=== PATIENT | male | born 1940 | race Caucasian/White ===

== ENCOUNTER → 2017-12-09 13:58 | Outpatient (CLI) | payer MEDICARE, SELFPAY ==
[2017-12-09 16:23] LABS: Absolute Lymphocyte Count 2.41 X10^3/ul (0.83-4.51); Absolute Neutrophil Count 4.7 X10^3/uL (2.0-7.7); Basophil# 0.02 X10^3/uL; Basophil% 0.2 % (0-1); Eosinophil# 0.11 X10^3/uL; Eosinophils% 1.3 % (0-5); Hematocrit 40.5 % (40-54); Hemoglobin 13.1 g/dl (13.0-16.5); Lymphocyte # 2.41 X10^3/ul (4.0); Lymphocyte % 29.2 % (19-41); Mean Corp Hgb Conc 32.3 g/gl (32-36); Mean Corpuscular Hgb 28.4 pg (27.0-32.0); Mean Corpuscular Volume 87.9 fL (80-94); Mean Platelet Vol. 10.5 fl (6.2-12.0); Monocyte# 1.01 X10^3/uL; Monocyte% 12.2 % (0-10); Neutrophil # 4.69 X10^3/uL (2.7-7.7); Neutrophil % 56.9 % (47-70); Platelet Count 220 K/mm3 (150-450); RBC Distribution Width CV 13.8 % (11.6-14.6); RBC Distribution Width SD 44.3 fl (35.1-43.9); Red Blood Count 4.61 M/mm3 (4.6-6.2); White Blood Count 8.3 K/mm3 (4.4-11.0)
[2017-12-09 16:34] LABS: POSITIVE COUNT NO; POSITIVE DIFFERENTIAL NO; POSITIVE MORPHOLOGY NO
[2017-12-09 16:36] LABS: ALB/GLOB Ratio 1.2 RATIO (0.9-2.4); AST(SGOT) 16 U/L (15-37); Alanine Aminotransfer ALT/SGPT 23 U/L (16-61); Albumin, Serum 3.6 g/dL (3.2-5.0); Alkaline Phosphatase 68 U/L (45-117); Anion Gap 11 (5-15); BUN 18 mg/dL (7-18); BUN/Creat Ratio 19.8 RATIO (10-20); Calcium,Total 8.7 mg/dL (8.5-10.1); Chloride 106 mmol/L (98-107); Creatinine, Serum 0.91 mg/dL (0.70-1.30); EST Glomerular Filtration Rate 86 mL/min (>60); Est Glom Filt Rate - Afr Amer 104 mL/min (>60); Globulin 3.1 g/dL (2.2-4.2); Glucose 95 mg/dL (74-106); Potassium 4.5 mmol/L (3.5-5.1); Protein, Total 6.7 g/dL (6.4-8.2); Sodium Level 143 mmol/L (136-145); Thyroid Stim Hormone (TSH) 1.98 uIU/mL (0.358-3.74)
[2017-12-10 12:25] LABS: Vitamin D,25 Hydroxy 21.6 ng/mL (29.95-100.01)
== END ==
PROVIDERS: Visit Provider Family Medicine Geriatric Medicine
DX: E11.9 Type 2 diabetes mellitus without complications (principal); E55.9 Vitamin D deficiency, unspecified; I10 Essential (primary) hypertension
CPT/HCPCS: 36415; 80053; 82306; 84443; 85025

== ENCOUNTER 2018-02-28 07:35 | Day surgery (SDC) | payer MEDICARE, SELFPAY ==
[2018-02-22 15:15] VITALS: BP 154/89; PULSE 77; RESP 18; TEMP 36.6; O2SAT 95; BMI 33.8
[2018-02-22 16:28] LABS: Hemoglobin A1c 6.5 % (4.2-6.3)
--- NOTE | 2018-02-28 | FIST_PTH ---
PATIENT: SABINE ORNELAS LOC: [facility] [place] U#:[id number] AGE/SX: 77/M ROOM: RE02/28/[address]: Dr. Eliud Zeng MD : [id number] BED: DIS: 02/28/2018 SPEC #: [id number] RECD: 02/28/18 13:20 STATUS: LETICIA STEFANI #: [id number] JUSTA: 02/28/18 00:[address]: Eliud Zeng DEPT: SURGICAL PATHOLOGY RECD BY: Tin Solano ENTERED: 02/28/18 13:22 SP TYPE: Fistula OTHR DR: Ash Barclay MD Tissues: Trachea, NOS Procedures: Surgery Specimen Level IV HEADER OPERATION: Revision, tracheoesophageal fistula, rigid esophagoscopy PRE-OP DIAGNOSIS: Tracheoesophageal fistula, personal history of malignant neoplasm of larynx TISSUE SUBMITTED: Tracheal tissue MICROSCOPIC DIAGNOSIS Tracheal tissue: Fragments of squamous mucosa with mild chronic inflammation, clinically tracheoesophageal fistula. Negative for malignancy. DEVORA:ale 03/01/18 COMMENT Clinical correlation and appropriate follow up are necessary. MICROSCOPIC DESCRIPTION Slides are reviewed. GROSS DESCRIPTION Received in fixative is one container labeled with the patient's name and designated tracheal tissue. The specimen consists of multiple irregular fragments of diaz soft tissue that in aggregate measure 2.5 x 0.5 x 0.3 cm. The specimen is totally submitted in one cassette. / DEVORA:ale 02/28/18 TC:3 CPT: 77211
[2018-02-28 08:10] VITALS: BP 182/73; PULSE 70; RESP 16; TEMP 36.1; O2SAT 99; BMI 33.8
[2018-02-28 08:35] LABS: Bedside Glucose 134 mg/dL (70-110)
--- NOTE | 2018-02-28 09:34 | PCM.DC ---
You will use the following diet at home:: No restrictions, Regular Discharge Activity: Return to Normal Activity Additional Activity Instructions:: Do not remove red rubber catheter. Allergies/Adverse Reactions: Allergies No Known Allergies Allergy (Verified 02/22/18 14:44) Medications to take at Discharge Levothyroxine Sodium [Levo-T] 112 mcg PO DAILY 03/11/16 Lisinopril [Zestril] 30 mg PO DAILY 03/11/16 Metformin HCl [Glucophage] 1,000 mg PO DAILY 03/11/16 Aspirin [Aspirin, Baby] 81 mg PO DAILY@0800 02/22/18 Atorvastatin Calcium [Lipitor] 80 mg PO QHS 02/22/18 Tamsulosin HCl [Flomax] 0.4 mg PO DAILY 02/22/18 Zolpidem Tartrate [Ambien] 10 mg PO QHS 02/22/18 Primary Care Physician: Ash Barclay Chi, MD [Primary Care Provider] - Test Results: Test results from this visit will be discussed in further detail at your follow-up appointment, if applicable.
[2018-02-28] MEDS: Silver Nitrate (BKC) 1 EACH (10:04)
[2018-02-28 10:38] VITALS: BP 140/52; BP 160/80; PULSE 90; RESP 18; TEMP 36.6; O2SAT 93
[2018-02-28 10:45] VITALS: BP 151/58; BP 160/80; PULSE 90; RESP 18; O2SAT 92
--- NOTE | 2018-02-28 10:46 | PCM.OPRPT ---
Report of Operation Date of Procedure: 02/28/18 Pre-Operative Diagnosis: aphonia, tracheoesophageal fistula Post-Operative Diagnosis: same Surgery/Procedure Performed:: revision tracheoesophageal fistula. rigid esophagoscopy Type of Anesthesia:: General Anesthesiologist: Mehul William Specimen's removed: tracheal tissue Estimated Blood Loss (mL): minimal Description of Procedure: The patient was taken to the OR on 02/28/18. He was placed in the supine position on the OR table. He was given sufficient general anesthesia. The patient was intubated through the laryngeal stoma with a 6.5 laser tube. The neck was prepped and draped steriley. The old prosthesis was removed with a hemostat. I then re intubated him with a 4.5 tube to allow more room to work. Next, the granulation tissue was excised from the back wall of the trachea with a 15 blade and metzenbaum scissors. A 16 lithuanian red rubber catheter was inserted into posterior wall of the trachea and into the esophagus. The entirety of the granulation was then removed. I obtained hemostasis with silver nitrate and topical adrenaline on Codman's. The smaller tube was removed and the 6.5 tube was re inserted. A gum guard was placed on the upper gingiva. Next, a rigid esophagoscope was placed through the mouth and oropharynx into the neopharynx. The anterior wall was found to be normal. The red rubber was seen heading inferiorly toward the stomach. The scope was then removed. I then sewed the red rubber catheter to the skin with 3-0 silk. Tape was also used to secure the tube to the skin. The procedure was terminated. He was awoken and brought to the recovery room in stable condition. Blood loss minimal, replacement none. Sponge, needle and instrument count were correct at the end of the procedure.
[2018-02-28 11:00] VITALS: BP 150/66; BP 160/80; PULSE 87; RESP 18; TEMP 36.6; O2SAT 93
[2018-02-28 11:00] LABS: Bedside Glucose 145 mg/dL (70-110)
[2018-02-28 12:40] VITALS: BP 152/74; BP 160/80; PULSE 70; RESP 18; TEMP 36.6
== END 2018-02-28 12:48 | disposition home or self-care (01) ==
LOC: SDC 07:35 → AC 07:36
PROVIDERS: Anesthesiology; Family Provider Family Medicine Geriatric Medicine; PCP Family Medicine Geriatric Medicine; Visit Provider Otolaryngology
PROC: 0CJS8ZZ Inspection of Larynx, Via Natural or Artificial Opening Endoscopic (ICD-10-PCS; CPT 31575; principal; 2018-02-28 09:40)
DX: R49.1 Aphonia (principal); J95.04 Tracheo-esophageal fistula following tracheostomy; Z85.21 Personal history of malignant neoplasm of larynx; I10 Essential (primary) hypertension; E78.00 Pure hypercholesterolemia, unspecified; E11.9 Type 2 diabetes mellitus without complications; E06.9 Thyroiditis, unspecified; Z87.891 Personal history of nicotine dependence; Z86.73 Personal history of transient ischemic attack (TIA), and cerebral infarction without residual deficits; Z79.82 Long term (current) use of aspirin; Z79.84 Long term (current) use of oral hypoglycemic drugs; Z79.899 Other long term (current) drug therapy
CPT/HCPCS: 00320; 31611; 43191; 82962; 83036; 88305; 93005; J7120; J2405; J3490

== ENCOUNTER → 2018-06-08 13:22 | Outpatient (CLI) | payer MEDICARE, SELFPAY ==
[2018-06-08 17:37] LABS: Absolute Lymphocyte Count 1.81 X10^3/ul (0.83-4.51); Absolute Neutrophil Count 5.7 X10^3/uL (2.0-7.7); Basophil# 0.04 X10^3/uL; Basophil% 0.5 % (0-1); Differential Comment SCANNED; Differential Indicated SCAN CRITERIA MET; Eosinophil# 0.06 X10^3/uL; Eosinophils% 0.7 % (0-5); Hemoglobin 12.7 g/dl (13.0-16.5); Lymphocyte # 1.81 X10^3/ul (4.0); Lymphocyte % 21.8 % (19-41); Mean Corp Hgb Conc 32.6 g/gl (32-36); Mean Corpuscular Hgb 28.5 pg (27.0-32.0); Mean Corpuscular Volume 87.6 fL (80-94); Mean Platelet Vol. 11.2 fl (6.2-12.0); Monocyte% 8.4 % (0-10); Neutrophil # 5.68 X10^3/uL (2.7-7.7); Neutrophil % 68.4 % (47-70); POSITIVE COUNT YES; POSITIVE DIFFERENTIAL NO; POSITIVE MORPHOLOGY YES; Platelet Count 217 K/mm3 (150-450); RBC Distribution Width CV 14.4 % (11.6-14.6); RBC Distribution Width SD 46.4 fl (35.1-43.9); Red Blood Count 4.45 M/mm3 (4.6-6.2); White Blood Count 8.3 K/mm3 (4.4-11.0)
[2018-06-08 17:47] LABS: ALB/GLOB Ratio 1.2 RATIO (0.9-2.4); AST(SGOT) 15 U/L (15-37); Alanine Aminotransfer ALT/SGPT 20 U/L (16-61); Albumin, Serum 3.4 g/dL (3.2-5.0); Alkaline Phosphatase 70 U/L (45-117); Anion Gap 8 (5-15); BUN 16 mg/dL (7-18); BUN/Creat Ratio 15.5 RATIO (10-20); Calcium,Total 8.4 mg/dL (8.5-10.1); Chloride 105 mmol/L (98-107); Creatinine, Serum 1.03 mg/dL (0.70-1.30); EST Glomerular Filtration Rate 74 mL/min (>60); Est Glom Filt Rate - Afr Amer 90 mL/min (>60); Globulin 2.8 g/dL (2.2-4.2); Glucose 221 mg/dL (74-106); Potassium 4.1 mmol/L (3.5-5.1); Protein, Total 6.2 g/dL (6.4-8.2); Sodium Level 142 mmol/L (136-145); Thyroid Stim Hormone (TSH) 2.56 uIU/mL (0.358-3.74)
[2018-06-08 17:54] LABS: Vitamin D,25 Hydroxy 15.9 ng/mL (29.95-100.01)
--- OUTSIDE RECORDS SUMMARY | 2018-08-03 22:49 | XMS RPT_ITS ---
:1940 Author Organization OHIP Care Team Providers Name Role Phone ELIUD SMITH Referring Unavailable ELIUD SMITH Referring Unavailable SCHUYLER ALEXANDER, DR. JORDAN Obrien Attending Unavailable SCHUYLER ALEXANDER, DR. JORDAN Obrien Primary Care Unavailable Deny, Ash Chi Attending Unavailable Eliud Smith Attending Unavailable Eliud Smith Referring Unavailable Deny, Ash Chi Primary Care Unavailable Asif Jacinto Attending Unavailable Eliud Smith Referring Unavailable Deny, Ash Chi Attending Unavailable Deny, Ash Chi Primary Care Unavailable PROBLEMS PROBLEMS DATE TYPE CONDITION / CODE ATTENDING STATUS SOURCE 03/23/2018 Unknown I10 - Essential Asif Jacinto Active [place] (primary) Community hypertension / Hospital I10(ICD-10) Repository 12/09/2017 Unknown E11.9 - Type 2 Deny, Ash Chi Active [place] diabetes mellitus Community without Hospital complications / Repository E11.9(ICD-10) 12/09/2017 Unknown E55.9 - Vitamin D Deny, Ash Chi Active [place] deficiency, Community unspecified / Hospital E55.9(ICD-10) Repository 07/19/2017 Admitting Essential (primary) SCHUYLER ALEXANDER, Active [facility] Diagnosis hypertension / DR. 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 JORDAN Ballard diabetic Repository neurological complication / E11.49(ICD-10) PROCEDURES PROCEDURES No Procedure Records FoundRESULTS RESULTS PROGRESS Observed: 06/27/2018 Status: COMPLETED Source: [place] 1:30 PM [facility] REPOSITORY HNO ID: [id number] Author: Deborah (Supervisor Particleboard) SYLVIA Scott/[employer] Service: (none) Author Type: Speech Language Pathologist Type: Progress Notes Filed: 06/27/2018 1:37 PM Note Text: Onset of Illness: 11/30/14 Initial Date of Treatment: 08/27/2017 Treatment Plan Date: 06/27/2018 ?? TEP Re-fit ? Date of TEP: Last re-do by Dr. Mcneil 11/30/14 Referral: Robina ? 02/28/2018: ?Patient underwent revision of TEP by Dr. Smith. The TEP was then stented with a 16fr red rubber catheter and sutured in place pending TEP fit. The patient ?self-fitted with one of his 16fr, 14mm Alyssa-Huff duckbill voice prostheses. He arrived speaking fairly well. He requested replacement of an indwelling TITLE ONE TEACHER; preference for 16fr, 14mm with large flanges. ? Pain Level (1-10): 0 ?? Voice Prosthesis Fitted today: Type: 20fr, Dual-Valve?with large flanges Size: 14mm Modifications: maintained external strap taped above stoma to assist with securing large tracheal flange against radha-prosthetic leak. Advanced to 20fr also after 16fr. was used and strap detached followed by leak. Pt continues to exhibit good?TEP speech and less effort with 20fr Re-fits best accomplished with Patel test automation architect (vs gel-cap). ? ? Impressions: Doing well with Indwelling TITLE ONE TEACHER; good to excellent voice/speech. ? Plan: F/U in 3-4?months or prn.? ?? G CODE REPORTING ? ? ? Current Goal Discharge ? FCMs LEVEL Other [employer]: ?G9174 Other [employer]: ?G9175 Other [employer]: ?G9176 Treatment Note 06/27/2018 7 CH 0% impaired CH 0% impaired CH 0% impaired ? Based on clinical assessment and the score on the Functional Communication Measures, the G code and corresponding severity modifiers are documented above. ? ? Deborah Scott MA/[facility]-SP Speech-Language Pathologist Pager [phone] CNOV Observed: 06/27/2018 Status: COMPLETED Source: [place] 1:00 PM [facility] REPOSITORY Office Visit (TALKMN) SABINE ORNELAS ([id number]) 1940 M Date Time Provider Department 06/27/18 1:00 PM DEBORAH SCOTT ([employer]) TALKMN During your visit today, we recorded the following information about you: Deborah Scott MA CCC-[employer], CCC/[employer] 06/27/2018 1:37 PM Signed Onset of Illness: 11/30/14 Initial Date of Treatment: 08/27/2017 Treatment Plan Date: 06/27/2018 ?? TEP Re-fit ? Date of TEP: Last re-do by Dr. Mcneil 11/30/14 Referral: Robina ? 02/28/2018: ?Patient underwent revision of TEP by Dr. Smith. The TEP was then stented with a 16fr red rubber catheter and sutured in place pending TEP fit. The patient ?self-fitted with one of his 16fr, 14mm Alyssa-Huff duckbill voice prostheses. He arrived speaking fairly well. He requested replacement of an indwelling TITLE ONE TEACHER; preference for 16fr, 14mm with large flanges. ? Pain Level (1-10): 0 ?? Voice Prosthesis Fitted today: Type: 20fr, Dual-Valve?with large flanges Size: 14mm Modifications: maintained external strap taped above stoma to assist with securing large tracheal flange against radha-prosthetic leak. Advanced to 20fr also after 16fr. was used and strap detached followed by leak. Pt continues to exhibit good?TEP speech and less effort with 20fr Re-fits best accomplished with Patel test automation architect (vs gel-cap). ? ? Impressions: Doing well with Indwelling TITLE ONE TEACHER; good to excellent voice/speech. ? Plan: F/U in 3-4?months or prn.? ?? G CODE REPORTING ? ? ? Current Goal Discharge ? FCMs LEVEL Other [employer]NS[employer]: ?G9174 Other [employer]: ?G9175 Other [employer]: ?G9176 Treatment Note 06/27/2018 7 CH 0% impaired CH 0% impaired CH 0% impaired ? Based on clinical assessment and the score on the Functional Communication Measures, the G code and corresponding severity modifiers are documented above. ? ? 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] INVALID FOR* RADIOTHERAPY FOLLOW-UP [Z09] INVALID FOR* Follow-up examination following surgery [Z09] INVALID FOR* 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] INVALID FOR* PERS HX LARYNGEAL MALIGNANCY [Z85.21] INVALID FOR* Aphonia [R49.1] INVALID FOR* Encounter Status:Closed by MELANIE WARD-[facility]IAL INTERNSHIPDEBORAH on 06/27/18 CBC W/DIFF, AUTOMATED Collected: 06/08/2018 Status: F Source: [place] 3:32 PM [facility] REPOSITORY TYPE CODE TESTS RESULT OUT OF RANGE REFERENCE UNITS LAB L100.1000 4.4-11.0 K/mm3 Normal WBC 8.3 LAB L100.1200 4.6-6.2 M/mm3 Low RBC 4.45 LAB L100.1300 13.0-16.5 g/dl Low HGB 12.7 LAB L100.1400 40-54 % Low HCT 39.0 LAB L100.1500 80-94 fL Normal MCV 87.6 LAB L100.1600 27.0-32.0 pg Normal MCH 28.5 LAB L100.1700 32-36 g/gl Normal MCHC 32.6 LAB L100.1810 11.6-14.6 % Normal RDW CV 14.4 LAB L100.1820 35.1-43.9 fl High RDW SD 46.4 LAB L100.1900 150-450 K/mm3 Normal PLT 217 LAB L100.2000 6.2-12.0 fl Normal MPV 11.2 LAB L100.2100 47-70 % Normal NEUT% 68.4 LAB L100.2200 19-41 % Normal LY% 21.8 LAB L100.2300 0-10 % Normal MONO% 8.4 LAB L100.2400 0-5 % Normal EO% 0.7 LAB L100.2500 0-1 % Normal BASO% 0.5 LAB L100.2550 0.0-0.9 % Normal IM GRAN % 0.200 Result Comment: IG% - Immature Granulocytes (promyelocytes, myelocytes and metamyelocytes) > 1% indicates that a LEFT SHIFT is Present. LAB L100.2620 2.0-7.7 X10 3/uL Normal Absolute Neut 5.7 LAB L100.2720 0.83-4.51 X10 3/ul Normal Absolute Lymph 1.81 LAB L100.4500 Normal SMEAR COMMENT SCANNED Result Comment: AUTO DIFF OK Performed By: #### L100.0100 #### [facility] [address] [place], [place], [id number] COMPREHENSIVE METABOLIC Collected: 06/08/2018 Status: F Source: [place] 3:32 PM [facility] REPOSITORY TYPE CODE TESTS RESULT OUT OF RANGE REFERENCE UNITS LAB L501.0100 74-106 mg/dL High GLU 221 Result Comment: Glucose result greater than or equal to 200 mg/dL suggests DIABETES MELLITUS per A.D.A. criteria. Please note revised GLUCOSE reference range effective 2017. LAB L501.1000 7-18 mg/dL Normal BUN 16 LAB L501.1100 0.70-1.30 mg/dL Normal CREAT,SERUM 1.03 Result Comment: The validity of the calculated GFR AND GFRAA in patients over 70 years has not been determined. Clinical correlation is essential. LAB L501.1110 >60 mL/min Normal EST GFR 74 Result Comment: Non- GFR Calc LAB L501.1115 >60 mL/min Normal EST GFR - AA 90 Result Comment: GFR Calc LAB L501.1300 10-20 RATIO Normal BUN/CRE 15.5 LAB L501.1500 6.4-8.2 g/dL Low T PROT 6.2 LAB L501.1800 3.2-5.0 g/dL Normal ALB 3.4 LAB L501.1950 2.2-4.2 g/dL Normal GLOB 2.8 LAB L501.2000 0.9-2.4 RATIO Normal A/G 1.2 LAB L501.2200 8.5-10.1 mg/dL Low CA 8.4 LAB L501.4100 15-37 U/L Normal AST 15 LAB L501.4305 45-117 U/L Normal ALK P 70 LAB L501.4405 16-61 U/L Normal ALT 20 LAB L501.4600 0.20-1.00 mg/dL High T BILI 1.10 LAB L501.5300 136-145 mmol/L NA Normal 142 LAB L501.5600 3.5-5.1 mmol/L K Normal 4.1 LAB L501.5900 98-107 mmol/L CL Normal 105 LAB L501.6100 21.0-32.0 mmol/L Normal CO2 29.0 LAB L501.6200 5-15 Normal GAP 8 Performed By: #### L500.4050, L501.9520 #### [facility] [address] [place], [address] THYROID STIM HORMONE Collected: 06/08/2018 Status: F Source: [place] (TSH) 3:32 PM [facility] REPOSITORY TYPE CODE TESTS RESULT OUT OF RANGE REFERENCE UNITS LAB L501.9520 0.358-3.74 uIU/mL Normal TSH 2.56 Performed By: #### L500.4050, L501.9520 #### [facility] [address] [place], [address] VITAMIN D,25 HYDROXY Collected: 06/08/2018 Status: F Source: [place] 3:32 PM [facility] REPOSITORY TYPE CODE TESTS RESULT OUT OF REFERENCE UNITS RANGE LAB L506.1000 29.95-100.01 ng/mL Low Vitamin D 15.9 25-OH Result Comment: Vitamin D 25(OH) Status Range Deficiency <20 ng/mL (50nmol/L) Insuffciency 20 - 30 ng/mL (50 - 75 nmol/L) Sufficiency 30 - 100 ng/mL (75 - 250 nmol/L) Toxicity >100 ng/mL (>250 nmol/L) Performed By: #### L506.1000 #### [facility] [address] [place], [address] PROGRESS Observed: 04/19/2018 Status: COMPLETED Source: [place] 11:48 AM [facility] REPOSITORY HNO ID: [id number] Author: Deborah (Supervisor Particleboard) SYLVIA Scott/[employer] Service: (none) Author Type: Speech Language Pathologist Type: Progress Notes Filed: 04/19/2018 11:52 AM Note Text: Onset of Illness: 11/30/14 Initial Date of Treatment: 08/27/2017 Treatment Plan Date: 04/04/2018 ?? TEP Re-fit ? Date of TEP: Last re-do by Dr. Mcneil 11/30/14 Referral: Robina ? 02/28/2018: Patient underwent revision of TEP by Dr. Smith. The TEP was then stented with a 16fr red rubber catheter and sutured in place pending TEP fit. The patient ?self-fitted with one of his 16fr, 14mm Alyssa-Huff duckbill voice prostheses. He arrived speaking fairly well. He requested replacement of an indwelling TITLE ONE TEACHER; preference for 16fr, 14mm with large flanges. ? Pain Level (1-10): 0 ?? Voice Prosthesis Last Re-fitted: Type: 17fr, 15mm Provox Patel; unable to place -LF using gel-cap insertion despite dilating to 20fr. Length: 14 mm Modifications: slightly upsized following traumatic insertion ? Voice Prosthesis Fitted today: Type: Classic 16fr Indwelling with wide flanges (tracheal and esophageal) Able to insert today after dilation to 20fr and using 17fr Provox Patel test automation architect. Pt continues to exhibit good TEP speech. ? ? Impressions: Doing well with Indwelling TITLE ONE TEACHER; good to excellent voice/speech. ? Plan: F/U in 3-4?months or prn.? ?? G CODE REPORTING ? ? ? Current Goal Discharge ? FCMs LEVEL Other [employer]NS[employer]: ?G9174 Other [employer]: ?G9175 Other [employer]NSH[employer]: ?G9176 Treatment Note 04/19/2018 7 CH 0% impaired CH 0% impaired CH 0% impaired ? Based on clinical assessment and the score on the Functional Communication Measures, the G code and corresponding severity modifiers are documented above. ? ? Deborah Scott MA/[facility] Speech-Language Pathologist Pager [phone] CNOV Observed: 04/19/2018 Status: COMPLETED Source: [place] 11:00 AM [facility] REPOSITORY Office Visit (TALKMN) SABINE ORNELAS ([id number]) 1940 M Date Time Provider Department 04/19/18 11:00 AM DEBORAH SCOTT ([employer]) TALKMN During your visit today, we recorded the following information about you: Deborah Scott MA CCC-[employer], CCC/[employer] 04/19/2018 11:52 AM Signed Onset of Illness: 11/30/14 Initial Date of Treatment: 08/27/2017 Treatment Plan Date: 04/04/2018 ?? TEP Re-fit ? Date of TEP: Last re-do by Dr. Mcneil 11/30/14 Referral: Robina ? 02/28/2018: Patient underwent revision of TEP by Dr. Smith. The TEP was then stented with a 16fr red rubber catheter and sutured in place pending TEP fit. The patient ?self-fitted with one of his 16fr, 14mm Alyssa-Huff duckbill voice prostheses. He arrived speaking fairly well. He requested replacement of an indwelling TITLE ONE TEACHER; preference for 16fr, 14mm with large flanges. ? Pain Level (1-10): 0 ?? Voice Prosthesis Last Re-fitted: Type: 17fr, 15mm Provox Patel; unable to place -LF using gel-cap insertion despite dilating to 20fr. Length: 14 mm Modifications: slightly upsized following traumatic insertion ? Voice Prosthesis Fitted today: Type: Classic 16fr Indwelling with wide flanges (tracheal and esophageal) Able to insert today after dilation to 20fr and using 17fr Provox Patel test automation architect. Pt continues to exhibit good TEP speech. ? ? Impressions: Doing well with Indwelling TITLE ONE TEACHER; good to excellent voice/speech. ? Plan: F/U in 3-4?months or prn.? ?? G CODE REPORTING ? ? ? Current Goal Discharge ? FCMs LEVEL Other [employer] INTERNSHIP: ?G9174 Other [employer]NSH[employer]: ?G9175 Other [employer]NSHIP: ?G9176 Treatment Note 04/19/2018 7 CH 0% impaired CH 0% impaired CH 0% impaired ? Based on clinical assessment and the score on the Functional Communication Measures, the G code and corresponding severity modifiers are documented above. ? ? 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 TEP Re-fit ? Date of TEP: Last re-do by Dr. Mcneil 11/30/14 Referral: Robina 02/28/2018: Patient underwent revision of TEP by Dr. Smith. The TEP was then stented with a 16fr red rubber catheter and sutured in place pending TEP fit. The patient ?self-fitted with one of his 16fr, 14mm Alyssa-Huff duckbill voice prostheses. He arrived speaking fairly well. He requested replacement of an indwelling TITLE ONE TEACHER; preference for 16fr, 14mm with large flanges. Pain Level (1-10): 0 ?? Voice Prosthesis Re-fitted: Type: 17fr, 15mm Provox Patel; unable to place -LF using gel-cap insertion despite dilating to 20fr. Length: 14 mm Modifications: slightly upsized following traumatic insertion ? Pt continues to exhibit good TEP speech. ? ? Impressions: Doing well with Indwelling TITLE ONE TEACHER; good to excellent voice/speech. ? Plan: F/U in 3-4 months or prn.? ?? G CODE REPORTING ? ? ? Current Goal Discharge ? FCMs LEVEL Other [employer]NSHIP: G9174 Other [employer]NSHIP: G9175 Other [employer]NSH[employer]: G9176 Treatment Note 04/04/2018 7 CH 0% impaired CH 0% impaired CH 0% impaired ? Based on clinical assessment and the score on the Functional Communication Measures, the G code and corresponding severity modifiers are documented above. ? ? Deborah Scott MA/[facility] Speech-Language Pathologist Pager [phone] CNOV Observed: 04/04/2018 Status: COMPLETED Source: [place] 10:00 AM [facility] REPOSITORY Office Visit (TALKMN) SABINE ORNELAS ([id number]) 1940 M Date Time Provider Department 04/04/18 10:00 AM DEBORAH SCOTT ([employer]) TALKMN During your visit today, we recorded the following information about you: Deborah Scott MA CCC-[employer], CCC/[employer] 04/04/2018 12:30 PM Signed Onset of Illness: 11/30/14 Initial Date of Treatment: 08/27/2017 Treatment Plan Date: 04/04/2018 ?? TEP Re-fit ? Date of TEP: Last re-do by Dr. Mcneil 11/30/14 Referral: Robina 02/28/2018: Patient underwent revision of TEP by Dr. Smith. The TEP was then stented with a 16fr red rubber catheter and sutured in place pending TEP fit. The patient ?self-fitted with one of his 16fr, 14mm Alyssa-Huff duckbill voice prostheses. He arrived speaking fairly well. He requested replacement of an indwelling TITLE ONE TEACHER; preference for 16fr, 14mm with large flanges. Pain Level (1-10): 0 ?? Voice Prosthesis Re-fitted: Type: 17fr, 15mm Provox Patel; unable to place -LF using gel-cap insertion despite dilating to 20fr. Length: 14 mm Modifications: slightly upsized following traumatic insertion ? Pt continues to exhibit good TEP speech. ? ? Impressions: Doing well with Indwelling TITLE ONE TEACHER; good to excellent voice/speech. ? Plan: F/U in 3-4 months or prn.? ?? G CODE REPORTING ? ? ? Current Goal Discharge ? FCMs LEVEL Other [employer] INTERNSHIP: G9174 Other [employer]NSHIP: G9175 Other [employer]NSH[employer]: G9176 Treatment Note 04/04/2018 7 CH 0% impaired CH 0% impaired CH 0% impaired ? Based on clinical assessment and the score on the Functional Communication Measures, the G code and corresponding severity modifiers are documented above. ? ? 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 [address] OPERATIVE REPORT Observed: 02/28/2018 Status: F Source: [place] 10:48 AM [facility] REPOSITORY [facility] Medical Records Department [address] [place] [address] Operative Report 02/28/18 1046 MR#: [id number] Acct: [id number] Name: SABNIE ORNELAS II Rep #: [id number] : 1940 77 From: Eliud Smith MD PCP: Ash Barclay MD, Chi Status: [facility] Y Location: [place] [address] Report of Operation Date of Procedure: 02/28/18 Pre-Operative Diagnosis: aphonia, tracheoesophageal fistula Post-Operative Diagnosis: same Surgery/Procedure Performed:: revision tracheoesophageal fistula. rigid esophagoscopy Type of Anesthesia:: General Anesthesiologist: Mehul William Specimen's removed: tracheal tissue Estimated Blood Loss (mL): minimal Description of Procedure: The patient was taken to the OR on 02/28/18. He was placed in the supine position on the OR table. He was given sufficient general anesthesia. The patient was intubated through the laryngeal stoma with a 6.5 laser tube. The neck was prepped and draped steriley. The old prosthesis was removed with a hemostat. I then re intubated him with a 4.5 tube to allow more room to work. Next, the granulation tissue was excised from the back wall of the trachea with a 15 blade and metzenbaum scissors. A 16 kyrgyz red rubber catheter was inserted into posterior wall of the trachea and into the esophagus. The entirety of the granulation was then removed. I obtained hemostasis with silver nitrate and topical adrenaline on Codman's. The smaller tube was removed and the 6.5 tube was re inserted. A gum guard was placed on the upper gingiva. Next, a rigid esophagoscope was placed through the mouth and oropharynx into the neopharynx. The anterior wall was found to be normal. The red rubber was seen heading inferiorly toward the stomach. The scope was then removed. I then sewed the red rubber catheter to the skin with 3-0 silk. Tape was also used to secure the tube to the skin. The procedure was terminated. He was awoken and brought to the recovery room in stable condition. Blood loss minimal, replacement none. Sponge, needle and instrument count were correct at the end of the procedure. 02/28/18 1048 <Electronically signed by Eliud Smith MD> Date Eliud Smith MD CC: Eliud Smith MD; Ash Barclay MD Signed DISCHARGE INSTRUCTION Observed: 02/28/2018 Status: F Source: [place] 9:34 AM [facility] REPOSITORY [facility] Medical Records Department [address] [place] [id number] Instructions for Home/Discharge Instructions 02/28/18 0934 MR#: [id number] Acct: [id number] Name: TAHIRSABINE GREER II Rep #: [id number] : 1940 77 From: Eliud Smith MD PCP: Ash Barclay MD, Chi Status: REG [facility] [place] You will use the following diet at home:: No restrictions, Regular Discharge Activity: Return to Normal Activity Additional Activity Instructions:: Do not remove red rubber catheter. Allergies/Adverse Reactions: Allergies No Known Allergies Allergy (Verified 02/22/18 14:44) Medications to take at Discharge Levothyroxine Sodium [Levo-T] 112 mcg PO DAILY 03/11/16 Lisinopril [Zestril] 30 mg PO DAILY 03/11/16 Metformin HCl [Glucophage] 1,000 mg PO DAILY 03/11/16 Aspirin [Aspirin, Baby] 81 mg PO DAILY@0800 02/22/18 Atorvastatin Calcium [Lipitor] 80 mg PO QHS 02/22/18 Tamsulosin HCl [Flomax] 0.4 mg PO DAILY 02/22/18 Zolpidem Tartrate [Ambien] 10 mg PO QHS 02/22/18 Primary Care Physician: Ash Barclay Chi, MD [Primary Care Provider] - Test Results: Test results from this visit will be discussed in further detail at your follow-up appointment, if applicable. 02/28/1834 <Electronically signed by Eliud Smith MD> Date Eliud Smith MD CC: Ash Barclay MD BEDSIDE GLUCOSE Collected: 02/28/2018 Status: F Source: [place] 8:23 AM [facility] REPOSITORY TYPE CODE TESTS RESULT OUT OF REFERENCE UNITS RANGE LAB L501.080 70-110 mg/dL High BEDSIDE GLU 134 Result Comment: MANAGEMENT OF PATIENT CARE PER NURSING PROTOCOL Performed By: #### L501.080 #### [facility] Point of Care [address] [place] [address] FISTULA Observed: 02/28/2018 Status: F Source: [place] 12:00 AM [facility] REPOSITORY Patient: SABINE ORNELAS II : 1940 (77/M) Acct Num: [id number] Phys: Eliud Smith MD Unit Num: [id number] Loc: [facility] Specimen: [id number] Received: 02/28/18 - 1320 Spec Type: Fistula TISSUES TISSUES: Trachea, NOS COMMENT Clinical correlation and appropriate follow up are necessary. GROSS DESCRIPTION Received in fixative is one container labeled with the patient's name and designated tracheal tissue. The specimen consists of multiple irregular fragments of diaz soft tissue that in aggregate measure 2.5 x 0.5 x 0.3 cm. The specimen is totally submitted in one cassette. / DEVORA:ale 02/28/18 TC:3 CPT: 25493 HEADER OPERATION: Revision, tracheoesophageal fistula, rigid esophagoscopy PRE-OP DIAGNOSIS: Tracheoesophageal fistula, personal history of malignant neoplasm of larynx TISSUE SUBMITTED: Tracheal tissue MICROSCOPIC DESCRIPTION Slides are reviewed. MICROSCOPIC DIAGNOSIS Tracheal tissue: Fragments of squamous mucosa with mild chronic inflammation, clinically tracheoesophageal fistula. Negative for malignancy. SJ:ale 03/01/18 Signed Willalfonso Gleason 03/01/18 <signature on file> Performed By: #### PFIST #### [facility] [address] [place], [address] 12 LEAD ELECTROCARDIOGRAM Observed: 02/23/2018 Status: F Source: [place] 11:22 AM [facility] REPOSITORY [facility] Cardiovascular Services [address] [place] [address] 12 Lead EKG 02/22/18 1435 MR#: [id number] Acct: [id number] Name: SABINE ORNELAS II Rep #: [id number] : 1940 77 From: Asif Jacinto MD Attending Dr: Eliud Smith MD Status: PRE [facility] Ordering Dr: Atul Us MD Date: 02/22/18 Location: [facility] Sex: M C Admitted: Test Reason : Blood Pressure : / mmHG Vent. Rate : 070 BPM Atrial Rate : 070 BPM P-R Int : 184 ms QRS Dur : 094 ms QT Int : 394 ms P-R-T Axes : 028 000 015 degrees QTc Int : 425 ms Normal sinus rhythm Normal ECG Confirmed by ASIF JACINTO MD ([id number]), city editor MICHELINE ROBLES ([id number]) on 02/23/2018 11:21:55 AM Referred By: Eliud Smith Confirmed By:ASIF JACINTO MD 02/23/18 5523 Date Asif Jacinto MD CC: Eliud Smith MD; Atul Us MD; Ash Barclay MD Signed HEMOGLOBIN A1C Collected: 02/22/2018 Status: F Source: [place] 3:35 PM [facility] REPOSITORY TYPE CODE TESTS RESULT OUT OF RANGE REFERENCE UNITS LAB L501.9985 4.2-6.3 % High HGB A1C 6.5 Performed By: #### L501.9985 #### [facility] [address] [place], [address] PROGRESS Observed: 01/18/2018 Status: COMPLETED Source: [place] 11:36 AM [facility] REPOSITORY HNO ID: [id number] Author: Deborah (Supervisor Particleboard) SYLVIA Scott/[employer] Service: (none) Author Type: Speech Language Pathologist Type: Progress Notes Filed: 01/18/2018 11:40 AM Note Text: Onset of Illness: 11/30/14 Initial Date of Treatment: 08/27/2017 Treatment Plan Date: 01/18/2018 ?? TEP Re-fit ? Date of TEP: Last re-do by Dr. Mcneil 11/30/14 Referral: Robina ? Pain Level (1-10): 0 ? ? Voice Prosthesis Re-fitted: Type: Alyssa-Huff Indwelling, 16 Fr. Advantage? Length: 14 mm Modifications: granulation persists; patient considering d/c TEP in favor of an AL device. He will discuss with his physician. ? Pt continues to exhibit excellent TEP speech. ? ? Impressions: Doing well with Indwelling TITLE ONE TEACHER; good to excellent voice/speech. ? Plan: F/U in 4 months or prn.? ? G CODE REPORTING Current Goal Discharge FCMs LEVEL Other [employer]: G9174 Other [employer]: G9175 Other [employer]: G9176 Treatment Note 01/18/2018 7 CH 0% impaired CH 0% impaired CH 0% impaired Based on clinical assessment and the score on the Functional Communication Measures, the G code and corresponding severity modifiers are documented above. ? ? Deborah Scott MA/SYLVIA-SP Speech-Language Pathologist Pager [phone] ? CNOV Observed: 01/18/2018 Status: COMPLETED Source: [place] 11:00 AM [facility] REPOSITORY Office Visit (TALKMN) SABINE ORNELAS ([id number]) 1940 M Date Time Provider Department 01/18/18 11:00 AM DEBORAH SCOTT ([employer]) TALKMN During your visit today, we recorded the following information about you: Deborah Scott MA CCC-[employer], CCC/[employer] 01/18/2018 11:40 AM Signed Onset of Illness: 11/30/14 Initial Date of Treatment: 08/27/2017 Treatment Plan Date: 01/18/2018 ?? TEP Re-fit ? Date of TEP: Last re-do by Dr. Mcneil 11/30/14 Referral: Robina ? Pain Level (1-10): 0 ? ? Voice Prosthesis Re-fitted: Type: Alyssa-Huff Indwelling, 16 Fr. Advantage? Length: 14 mm Modifications: granulation persists; patient considering d/c TEP in favor of an AL device. He will discuss with his physician. ? Pt continues to exhibit excellent TEP speech. ? ? Impressions: Doing well with Indwelling TITLE ONE TEACHER; good to excellent voice/speech. ? Plan: F/U in 4 months or prn.? ? G CODE REPORTING Current Goal Discharge FCMs LEVEL Other [employer]NSH[employer]: G9174 Other [employer]: G9175 Other [employer]: G9176 Treatment Note 01/18/2018 7 CH 0% impaired CH 0% impaired CH 0% impaired Based on clinical assessment and the score on the Functional Communication Measures, the G code and corresponding severity modifiers are documented above. ? ? Deborah Scott MA/SYLVIA-SP Speech-Language Pathologist Pager [phone] ? 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] INVALID FOR* Aphonia [R49.1] INVALID FOR* Encounter Status:Closed by MELANIE WARD-DEBORAH JEAN on 01/18/18 CBC W/DIFF, AUTOMATED Collected: 12/09/2017 Status: F Source: [place] 2:01 PM [facility] REPOSITORY TYPE CODE TESTS RESULT OUT OF RANGE REFERENCE UNITS LAB L100.1000 4.4-11.0 K/mm3 Normal WBC 8.3 LAB L100.1200 4.6-6.2 M/mm3 Normal RBC 4.61 LAB L100.1300 13.0-16.5 g/dl Normal HGB 13.1 LAB L100.1400 40-54 % Normal HCT 40.5 LAB L100.1500 80-94 fL Normal MCV 87.9 LAB L100.1600 27.0-32.0 pg Normal MCH 28.4 LAB L100.1700 32-36 g/gl Normal MCHC 32.3 LAB L100.1810 11.6-14.6 % Normal RDW CV 13.8 LAB L100.1820 35.1-43.9 fl High RDW SD 44.3 LAB L100.1900 150-450 K/mm3 Normal PLT 220 LAB L100.2000 6.2-12.0 fl Normal MPV 10.5 LAB L100.2100 47-70 % Normal NEUT% 56.9 LAB L100.2200 19-41 % Normal LY% 29.2 LAB L100.2300 0-10 % High MONO% 12.2 LAB L100.2400 0-5 % Normal EO% 1.3 LAB L100.2500 0-1 % Normal BASO% 0.2 LAB L100.2550 0.0-0.9 % Normal IM GRAN % 0.200 Result Comment: IG% - Immature Granulocytes (promyelocytes, myelocytes and metamyelocytes) > 1% indicates that a LEFT SHIFT is Present. LAB L100.2620 2.0-7.7 X10 3/uL Normal Absolute Neut 4.7 LAB L100.2720 0.83-4.51 X10 3/ul Normal Absolute Lymph 2.41 Performed By: #### L100.0100 #### [facility] [address] [place], [address] COMPREHENSIVE METABOLIC Collected: 12/09/2017 Status: F Source: [facility] 2:01 PM [facility] REPOSITORY TYPE CODE TESTS RESULT OUT OF RANGE REFERENCE UNITS LAB L501.0100 74-106 mg/dL Normal GLU 95 Result Comment: Please note revised GLUCOSE reference range effective 2017. LAB L501.1000 7-18 mg/dL Normal BUN 18 LAB L501.1100 0.70-1.30 mg/dL Normal CREAT,SERUM 0.91 Result Comment: The validity of the calculated GFR AND GFRAA in patients over 70 years has not been determined. Clinical correlation is essential. LAB L501.1110 >60 mL/min Normal EST GFR 86 Result Comment: Non- GFR Calc LAB L501.1115 >60 mL/min Normal EST GFR - AA 104 Result Comment: GFR Calc LAB L501.1300 10-20 RATIO Normal BUN/CRE 19.8 LAB L501.1500 6.4-8.2 g/dL T Normal PROT 6.7 LAB L501.1800 3.2-5.0 g/dL Normal ALB 3.6 LAB L501.1950 2.2-4.2 g/dL Normal GLOB 3.1 LAB L501.2000 0.9-2.4 RATIO Normal A/G 1.2 LAB L501.2200 8.5-10.1 mg/dL CA Normal 8.7 LAB L501.4100 15-37 U/L Normal AST 16 LAB L501.4305 45-117 U/L Normal ALK P 68 LAB L501.4405 16-61 U/L Normal ALT 23 LAB L501.4600 0.20-1.00 mg/dL T Normal BILI 1.00 LAB L501.5300 136-145 mmol/L NA Normal 143 LAB L501.5600 3.5-5.1 mmol/L K Normal 4.5 LAB L501.5900 98-107 mmol/L CL Normal 106 LAB L501.6100 21.0-32.0 mmol/L Normal CO2 26.0 LAB L501.6200 5-15 Normal GAP 11 Performed By: #### L500.4050, L501.9520 #### [facility] [address] [place], [place], [address] THYROID STIM HORMONE Collected: 12/09/2017 Status: F Source: [place] (TSH) 2:01 PM [facility] REPOSITORY TYPE CODE TESTS RESULT OUT OF RANGE REFERENCE UNITS LAB L501.9520 0.358-3.74 uIU/mL Normal TSH 1.98 Performed By: #### L500.4050, L501.9520 #### [facility] [address] [place], [address] VITAMIN D,25 HYDROXY Collected: 12/09/2017 Status: F Source: [place] 2:01 PM [facility] REPOSITORY TYPE CODE TESTS RESULT OUT OF REFERENCE UNITS RANGE LAB L506.1000 29.95-100.01 ng/mL Low Vitamin D 21.6 25-OH Result Comment: Vitamin D 25(OH) Status Range Deficiency <20 ng/mL (50nmol/L) Insuffciency 20 - 30 ng/mL (50 - 75 nmol/L) Sufficiency 30 - 100 ng/mL (75 - 250 nmol/L) Toxicity >100 ng/mL (>250 nmol/L) Performed By: #### L506.1000 #### [facility] [place], [address] PROGRESS Observed: 11/08/2017 Status: COMPLETED Source: [place] 10:00 AM [facility] REPOSITORY HNO ID: [id number] Author: Deborah (Supervisor Particleboard) SYLVIA Scott/[employer] Service: (none) Author Type: Speech Language Pathologist Type: Progress Notes Filed: 11/08/2017 10:04 AM Note Text: Onset of Illness: 11/30/14 Initial Date of Treatment: 08/27/2017 Treatment Plan Date: 11/08/2017 ?? TEP Re-fit ? Date of TEP: Last re-do by Dr. Mcneil 11/30/14 Referral: Robina ? Pain Level (1-10): 0 ? ? Voice Prosthesis Re-fitted: Type: Alyssa-Huff Indwelling, 16 Fr. Classic Length: 14 mm Modifications: LF ? Pt continues to exhibit excellent TEP speech. ?Needed to use rigid Patel test automation architect to place large flange 16fr. classic ? Impressions: Doing well with Indwelling TITLE ONE TEACHER; good to excellent voice/speech. ? Plan: F/U in 3-6 months or prn.? ? G CODE REPORTING Current Goal Discharge FCMs LEVEL Other [employer]NS[employer]: G9174 Other [employer]NSH[employer]: G9175 Other [employer]: G9176 Treatment Note 11/08/2017 7 CH 0% impaired CH 0% impaired CH 0% impaired Based on clinical assessment and the score on the Functional Communication Measures, the G code and corresponding severity modifiers are documented above. ? Deborah Scott MA/SYLVIA-SP Speech-Language Pathologist Pager [phone] CNOV Observed: 11/08/2017 Status: COMPLETED Source: [place] 9:00 AM [facility] REPOSITORY Office Visit (TALKMN) SABINE ORNELAS ([id number]) 1940 M Date Time Provider Department 11/08/17 9:00 AM DEBORAH SCOTT ([employer]) TALKMN During your visit today, we recorded the following information about you: Deborah Scott MA CCC-[employer], CCC/[employer] 11/08/2017 10:04 AM Signed Onset of Illness: 11/30/14 Initial Date of Treatment: 08/27/2017 Treatment Plan Date: 11/08/2017 ?? TEP Re-fit ? Date of TEP: Last re-do by Dr. Mcneil 11/30/14 Referral: Robina ? Pain Level (1-10): 0 ? ? Voice Prosthesis Re-fitted: Type: Alyssa-Huff Indwelling, 16 Fr. Classic Length: 14 mm Modifications: LF ? Pt continues to exhibit excellent TEP speech. ?Needed to use rigid Patel test automation architect to place large flange 16fr. classic ? Impressions: Doing well with Indwelling TITLE ONE TEACHER; good to excellent voice/speech. ? Plan: F/U in 3-6 months or prn.? ? G CODE REPORTING Current Goal Discharge FCMs LEVEL Other [employer]NSHIP: G9174 Other [employer]NSHIP: G9175 Other [employer]NSH[employer]: G9176 Treatment Note 11/08/2017 7 CH 0% impaired CH 0% impaired CH 0% impaired Based on clinical assessment and the score on the Functional Communication Measures, the G code and corresponding severity modifiers are documented above. ? 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 ? TEP F/U ? Date of TEP: Last re-do by Dr. Mcneil 11/30/14 Referral: Robina ? Pain Level (1-10): 0 Last seen in 2015 and patient had been stable with an exdwelling device. Suffered a stroke last year, but recovered well. His local ENT agreed to remove granulation tissue and was encouraged to switch to an Indwelling device. Patient arrives wearing the following: ? Voice Prosthesis: Type: Alyssa-Huff Indwelling, 16 Fr. Classic Length: 14 mm Modifications: LF LF device was not in stock today. Voice Prosthesis Re-fitted: Type: Alyssa-Huff Indwelling, 16 Fr. Advantage () Length: 14 mm Modifications: antifungal but no LF Pt continues to exhibit excellent TEP speech. He is now enjoying 6 months wear and minimal maintenance. ? Impressions: Doing well with Indwelling TITLE ONE TEACHER; good to excellent voice/speech. ? Plan: F/U in 6 months or prn.? G CODE REPORTING Current Goal Discharge FCMs LEVEL Other [employer] INTERNSHIP: G9174 Other [employer]NSH[employer]: G9175 Other [employer]NSHIP: G9176 Evaluation 08/27/2017 7 CH 0% impaired CH 0% impaired CH 0% impaired Based on clinical assessment and the score on the Functional Communication Measures, the G code and corresponding severity modifiers are documented above. ? Deborah Scott MA/SYLVIA-SP Speech-Language Pathologist Pager [phone] CBC Collected: 07/19/2017 Status: F Source: [facility] 9:21 AM [facility] REPOSITORY TYPE CODE TESTS RESULT OUT OF REFERENCE UNITS RANGE LAB WBC(LOINC) 4.60-10.80 10 3/mcL WBC 9.30 LAB RBCCT(LOINC 4.04-6.13 10 6/mcL ) RBC 4.72 LAB HGB(LOINC) 14.0-18.0 G/dL Low Hgb 13.5 LAB HCT(LOINC) 42.0-52.0 % Low Hct 40.6 LAB MCV(LOINC) 80.0-94.0 fL MCV 86.0 LAB MCH(LOINC) 27.0-31.2 pg MCH 28.6 LAB MCHC(LOINC) 31.8-35.4 G/dL MCHC 33.3 LAB RDW(LOINC) 11.5-14.5 % RDW 13.4 LAB PLT(LOINC) 130-400 10 3/mcL Platelet 214 LAB MPV(LOINC) 7.4-10.4 fL MPV 9.3 Performed By: #### CBC, ADIFF, ANEU, GFR, CMP, LIPID, TSH #### [place] [address] .AUTO DIFF Collected: 07/19/2017 Status: F Source: [facility] 9:21 AM [facility] REPOSITORY TYPE CODE TESTS RESULT OUT OF REFERENCE UNITS RANGE LAB ESTRELLITA(LOINC) 37.0-80.0 % Neutrophil % 65.3 LAB LYM(LOINC) 10.0-50.0 % Lymphocyte % 23.2 LAB MON(LOINC) 1.7-13.0 % Monocyte % 9.2 LAB EO(LOINC) 0.0-7.0 % Eosinophil % 1.4 LAB BAS(LOINC) 0.0-2.5 % Basophil % 0.9 LAB ABLYM(LOIN 0.77-3.85 10 3/mcL C) Lymphocyte, 2.20 Absolute LAB PABLO(LOINC 0.15-1.00 10 3/mcL ) Monocyte, 0.90 Absolute LAB AEOS(LOINC 0.00-0.40 10 3/mcL ) Eosinophil, 0.10 Absolute LAB ABAS(LOINC 0.00-0.19 10 3/mcL ) Basophil, 0.10 Absolute Performed By: #### CBC, ADIFF, ANEU, GFR, CMP, LIPID, TSH #### [address] [address] .NEUABS Collected: 07/19/2017 Status: F Source: [place] [employer] 9:21 AM [facility] REPOSITORY TYPE CODE TESTS RESULT OUT OF REFERENCE UNITS RANGE LAB ANEU(LOINC) 2.85-6.16 10 3/mcL Neutrophil, 6.10 Absolute Performed By: #### CBC, ADIFF, ANEU, GFR, CMP, LIPID, TSH #### [address] [address] .GFR Collected: 07/19/2017 Status: F Source: [facility] 9:21 AM [facility] REPOSITORY TYPE CODE TESTS RESULT OUT OF REFERENCE UNITS RANGE LAB GFRAA(LOINC ml/min/1.73 ) sqm GFR 112 [place] Result Comment: GFR Population mean for , Non- Americans Ages 20-29 = 116 mL/min/1.73 sq.m. Ages 30-39 = 107 mL/min/1.73 sq.m. Ages 40-49 = 99 mL/min/1.73 sq.m. Ages 50-59 = 93 mL/min/1.73 sq.m. Ages 60-69 = 85 mL/min/1.73 sq.m. Ages 70+ = 75 mL/min/1.73 sq.m. Chronic Kidney Disease: Less than 60 mL/min/1.73 square meters End Stage Renal Disease: Less than 15 mL/min/1.73 square meters LAB GFRNO(LOINC) ml/min/1.73sqm GFR Non- >60 Result Comment: GFR Population mean for , Non- Americans Ages 20-29 = 116 mL/min/1.73 sq.m. Ages 30-39 = 107 mL/min/1.73 sq.m. Ages 40-49 = 99 mL/min/1.73 sq.m. Ages 50-59 = 93 mL/min/1.73 sq.m. Ages 60-69 = 85 mL/min/1.73 sq.m. Ages 70+ = 75 mL/min/1.73 sq.m. Chronic Kidney Disease: Less than 60 mL/min/1.73 square meters End Stage Renal Disease: Less than 15 mL/min/1.73 square meters Performed By: #### CBC, ADIFF, ANEU, GFR, CMP, LIPID, TSH #### [place] [address] [place], [place] [address] CMP Collected: 07/19/2017 Status: F Source: [place] [employer] 9:21 AM [facility] TYPE CODE TESTS RESULT OUT OF REFERENCE UNITS RANGE LAB 1547-9 83-110 mg/dL GLUCOSE High 143 LAB NA(LOINC) 136-146 mEq/L Sodium Level 143 LAB K(LOINC) 3.5-5.1 mEq/L Potassium Level 4.4 LAB CL(LOINC) 98-107 mEq/L Chloride 106 LAB CO2(LOINC) 23-31 mEq/L CO2 26 LAB EBAL(LOINC mEq/L ) Electrolyte Balance 11.0 LAB BUN(LOINC) 7.0-18.0 mg/dL BUN 12.4 LAB CRE(LOINC) 0.6-1.2 mg/dL Creatinine Lvl (s) 0.8 LAB BC(LOINC) 7-27 ratio BUN/Creatinine 16 Ratio LAB CA(LOINC) 8.4-10.2 mg/dL Calcium Lvl 9.0 LAB PROT(LOINC 6.0-8.3 G/dL ) Total Protein 6.3 LAB ALB(LOINC) 3.4-4.8 G/dL Albumin Level 4.2 LAB GLB(LOINC) G/dL Globulin 2.1 LAB AG(LOINC) 1.1-2.5 ratio A/G Ratio 2.0 LAB BILT(LOINC 0.2-1.0 mg/dL ) Bili Total 0.9 LAB AP(LOINC) 40-135 IU/L Alk Phos 70 LAB AST(LOINC) 10-40 IU/L AST/SGOT 19 LAB ALT(LOINC) 10-35 IU/L ALT/SGPT 16 Performed By: #### CBC, ADIFF, ANEU, GFR, CMP, LIPID, TSH #### [place] [address] [place], [place] [address] LIPID Collected: 07/19/2017 Status: F Source: [facility] 9:21 AM [facility] REPOSITORY TYPE CODE TESTS RESULT OUT OF REFERENCE UNITS RANGE LAB CHOL(LOINC 131-200 mg/dL ) Low Cholesterol 101 Result Comment: Cholesterol Reference Interval: Less than 200 Desirable 200-239 Borderline high risk 240 and above High risk LAB TRIG(LOINC) 40-150 mg/dL Triglycerides High 169 Result Comment: Triglyceride Reference Interval: Less than 150 Normal 150-199 Borderline high risk 200-499 High risk 500 or higher Very high risk LAB HD(LOINC) 35-90 mg/dL HDL Low Cholesterol 23 Result Comment: HDL Reference Interval: Less than 40 Low - high risk 60 or above Optimal/lowers risk LAB LDL(LOINC) 0-130 mg/dL LDL Cholesterol 44 Result Comment: LDL is a calculated result and requires a 12-hr fast. LDL Reference Interval: Less than 100 Optimal 100-129 Near or above optimal 130-159 Borderline high risk 160-189 High risk 190 and above Very high risk Performed By: #### CBC, ADIFF, ANEU, GFR, CMP, LIPID, TSH #### [address] [address] TSH Collected: 07/19/2017 Status: F Source: [facility] 9:21 AM [facility] REPOSITORY TYPE CODE TESTS RESULT OUT OF RANGE REFERENCE UNITS LAB TSH(LOINC) 0.27-4.20 mcIU/mL TSH 3.57 Performed By: #### CBC, ADIFF, ANEU, GFR, CMP, LIPID, TSH #### [address] [address] ALLERGIES ALLERGIES DATE TYPE / CODE NAME / CODE REACTION SEVERITY SOURCE 02/22/2018 Drug No Known Unknown [facility] Allergy/416 Allergies/[id number] Hospital 021693(SNOM 0388(RXNORM) Repository ED CT) Drug NO KNOWN [facility] Class/82775 ALLERGIES Main [place] 1003(SNOMED Repository CT) ENCOUNTERS ENCOUNTERS ADMIT/DISCHARGE ACCOUNT NUMBER ADMITTING ENCOUNTER LOCATION SOURCE CLASS 06/27/2018/06/27/20 [id number] Ambulatory [address] Main [place] Repository 06/08/2018 [id number] Ambulatory [facility] ding:POLAB3 Repository 04/19/2018/04/19/20 [id number] Ambulatory [address] Repository 04/04/2018/04/04/20 [id number] Ambulatory [address] Repository 02/28/2018/02/29/20 [id number] Ambulatory [address] ding:SDC Repository 02/22/2018 [id number] Ambulatory [facility] Repository 01/18/2018/01/19/20 [id number] Ambulatory [address] Repository 12/09/2017 [id number] Ambulatory [facility] ding:POLAB3 Repository 11/08/2017/11/09/19 [id number] Ambulatory [address] Repository 08/27/2017/08/27/19 [id number] Ambulatory [address] Repository 07/19/2017/07/23/19 [id number] Ambulatory [address] ding:[facility] Repository PAYERS PAYERS ENCOUNTER GUARANTOR PAYER SUBSCRIBER SOURCE 06/08/2018 SABINE Obrien [facility] Insurance:[address] IIDOB: [place] [id number]: [facility] Number: [id number] Repository [phone] (HP) Date:[id number] [address]CT: 06/08/2018 Secondary NOT GIVENUNK [place] Insurance:SELF PAY [facility] Number: Effective Repository Date:2018-06-08 02/28/2018 SABINE [facility]rien [facility] Insurance:[address] IIDOB: [facility] [address]Zis: OPoly Number: [id number] Repository [id number] (HP) Date:5259-80-82UE [address] [address]JH: 02/28/2018 Secondary NOT GIVENUNK [place] Insurance:SELF PAY [facility] Number: Effective Repository Date:2018-02-08 02/22/2018 SABINE J Primary SABINE Obrien [place] EHRMANBARRY IIPO Insurance:[address] IIDOB: [facility] [address]Ugh: [facility] Number: [id number] Repository [id number] (HP) Date:2959-30-38[address] [place] [address]YM: 02/22/2018 Secondary NOT GIVENUNK Jean-Paul Insurance:SELF PAY [facility] Number: Effective Repository Date:2018-02-22 12/09/2017 SABINE Micah Primary SABINE [facility]rien [facility] Insurance:[facility] [id number] [facility] Number: [id number] Repository [address] [place] [address] [id number] [id number]: [phone]) Date:[id number] [phone] (HP) [address] [address]YT: 12/09/2017 Secondary NOT GIVENUNK [place] Insurance:SELF PAY [facility] Number: Effective Repository Date:2017-12-09 07/19/2017 SABINE Obrien Primary [facility]ABINE [facility]rien [facility] Insurance:PRIME TIME EHRMANTROUTDOB: Foundation [id number] [facility]Policy [id number] Repository [address], [place] Number: [address], [address]Qmz: [address] [id number] [place] [address]Fhs: [phone] (HP)Tel: Date:2017-07-19 - [phone] [id number] (HP)Tel: [phone] (WP) Name:[facility] [phone] (WP) [address] [address]VB:
== END ==
PROVIDERS: Family Provider Family Medicine Geriatric Medicine; PCP Family Medicine Geriatric Medicine; Visit Provider Family Medicine Geriatric Medicine
DX: E11.9 Type 2 diabetes mellitus without complications (principal); E55.9 Vitamin D deficiency, unspecified; I10 Essential (primary) hypertension
CPT/HCPCS: 36415; 80053; 82306; 84443; 85025

== ENCOUNTER → 2018-12-07 | Outpatient (CLI) | payer MEDICARE, SELFPAY ==
[2018-12-07 17:49] LABS: Absolute Lymphocyte Count 2.28 X10^3/ul (0.83-4.51); Absolute Neutrophil Count 5.2 X10^3/uL (2.0-7.7); Basophil# 0.04 X10^3/uL; Basophil% 0.5 % (0-1); Eosinophil# 0.06 X10^3/uL; Eosinophils% 0.7 % (0-5); Hematocrit 39.9 % (40-54); Hemoglobin 12.9 g/dl (13.0-16.5); Lymphocyte # 2.28 X10^3/ul (4.0); Lymphocyte % 27.1 % (19-41); Mean Corp Hgb Conc 32.3 g/gl (32-36); Mean Corpuscular Hgb 27.8 pg (27.0-32.0); Mean Platelet Vol. 11.3 fl (6.2-12.0); Monocyte# 0.85 X10^3/uL; Monocyte% 10.1 % (0-10); Neutrophil # 5.15 X10^3/uL (2.7-7.7); Neutrophil % 61.4 % (47-70); Platelet Count 233 K/mm3 (150-450); RBC Distribution Width CV 14.9 % (11.6-14.6); RBC Distribution Width SD 45.9 fl (35.1-43.9); Red Blood Count 4.64 M/mm3 (4.6-6.2); White Blood Count 8.4 K/mm3 (4.4-11.0)
[2018-12-07 17:57] LABS: Vitamin D,25 Hydroxy 42.5 ng/mL (29.95-100.01)
[2018-12-07 17:58] LABS: POSITIVE COUNT NO; POSITIVE DIFFERENTIAL NO; POSITIVE MORPHOLOGY NO
[2018-12-07 18:13] LABS: AST(SGOT) 14 U/L (15-37); Alanine Aminotransfer ALT/SGPT 17 U/L (16-61); Albumin, Serum 3.3 g/dL (3.2-5.0); Alkaline Phosphatase 89 U/L (45-117); Anion Gap 9 (5-15); BUN 16 mg/dL (7-18); BUN/Creat Ratio 16.9 RATIO (10-20); Calcium,Total 8.4 mg/dL (8.5-10.1); Chloride 105 mmol/L (98-107); Creatinine, Serum 0.95 mg/dL (0.70-1.30); EST Glomerular Filtration Rate 81 mL/min (>60); Est Glom Filt Rate - Afr Amer 99 mL/min (>60); Globulin 3.2 g/dL (2.2-4.2); Glucose 96 mg/dL (74-106); Potassium 4.3 mmol/L (3.5-5.1); Protein, Total 6.5 g/dL (6.4-8.2); Sodium Level 141 mmol/L (136-145); Thyroid Stim Hormone (TSH) 2.79 uIU/mL (0.358-3.74)
== END | disposition home or self-care (01) ==
PROVIDERS: Family Provider Family Medicine Geriatric Medicine; PCP Family Medicine Geriatric Medicine; Visit Provider Family Medicine Geriatric Medicine
DX: E11.9 Type 2 diabetes mellitus without complications (principal); E55.9 Vitamin D deficiency, unspecified; I10 Essential (primary) hypertension
CPT/HCPCS: 36415; 80053; 82306; 84443; 85025

== ENCOUNTER 2019-02-20 12:41 | Inpatient (IN) | payer MEDICARE, SELFPAY ==
[2019-02-20 12:42] VITALS: BP 117/58; PULSE 107; RESP 17; TEMP 36; O2SAT 93; BMI 33.0
--- NOTE | 2019-02-20 12:57 | EKG12_ITS ---
Test Reason : WEAKNESS Blood Pressure : / mmHG Vent. Rate : 103 BPM Atrial Rate : 103 BPM P-R Int : 164 ms QRS Dur : 100 ms QT Int : 340 ms P-R-T Axes : -11 -10 065 degrees QTc Int : 445 ms Sinus tachycardia with occasional Premature ventricular complexes Otherwise normal ECG Confirmed by OPHELIA LOZANO, RUT ([id number]), editor news GRACIE IBRAHIM ([id number]) on 02/22/2019 8:57:11 AM Referred By: GABRIELA/TYLER Confirmed By:RUT JACINTO MD
--- NOTE | 2019-02-20 12:57 | CT_ITS ---
STUDY: CT BRAIN WITHOUT CONTRAST REASON FOR EXAM: Male, 78 years old. Fell out of bed and hit head while getting up. History of throat cancer and hypertension. RADIATION DOSAGE (If Supplied By Facility): CTDIvol = ( hypertension ) mGy, DLP = ( 863.60 ) mGycm TECHNIQUE: Transaxial CT imaging of the brain was performed without administration of intravenous contrast material. Individualized dose optimization techniques were used for this CT. COMPARISON: MRI of the brain, March 12, 2016. CT of the head, March 11, 2016. FINDINGS: Normal soft tissue structures. Normal calvarium. There is mild cerebral atrophy with widening of the extra-axial spaces and ventricular dilatation. There are areas of decreased attenuation within the white matter tracts of the supratentorial brain, consistent with microvascular disease changes. Normal basal ganglia and right thalamus. There is a remote lacunar infarct in the left thalamus. Normal brainstem. There are 2 areas of encephalomalacia, suggesting prior infarcts in the right cerebellum. There is no intracranial hemorrhage. There are no findings of an acute ischemic infarction. Normal visualized paranasal sinuses. CT/Brain/Head without Contrast IMPRESSION: 1. Chronic involutional changes without evidence of acute intracranial or calvarial abnormality. 2. Stable right cerebellar infarct. 3. Remote lacunar infarct in the left thalamus. This was not seen on the 2016 studies. Electronically Signed: Ezra Fernandez DO at 16:16 EDT Tel [phone], Service support ,
--- NOTE | 2019-02-20 12:57 | ED.VIS.GEN ---
History of Present Illness Chief Complaint: Weakness Informant: Patient Onset: Yesterday Context: Gradual Onset Timing: Continuous Current Severity: Moderate Maximum Severity: Moderate Narrative: The patient presents to the emergency department after a fall with generalized weakness. Patient has a history of prior stroke. He does have some residual right-sided weakness. He normally ambulates with a cane or walker. He states he was trying to get himself in the bed last night. He had his leg outside of the sheets. He states he cannot get back into the bed. He was trying to move it lost his balance and slid out of bed. He landed on both of his knees. He states because of his weakness, he was not able to stand up. He basically laid on the floor all night. His son was able to help him up this morning. He was ambulate with his walker but then slipped again and struck his head. He did not lose consciousness. He states over the past few days, he is just felt more weak than normal. He denies any cough or fever. He denies any urinary symptoms. He states he is been eating and drinking without issue. Prior similar symptoms: No Recent Illness/Hospitalization: No Past Medical History - Allergies and Home Meds Allergies/Adverse Reactions: Allergies No Known Allergies Allergy (Verified 02/20/19 12:42) Primary Care Physician: Ash Bacrlay Chi, MD [Primary Care Provider] - Prior records reviewed: Yes Smoking Status: Former smoker - Family History Maternal Family History: Reports: No pertinent history, - - He denies a family history of any chronic medical problem Review of Systems General: Denies: Chills, Fever, Sweats Eyes: Denies: Visual changes - bilaterally, Diplopia ENT: Denies: Rhinorrhea, Sore throat Cardiovascular: Denies: Chest pain, Palpitations Respiratory: Denies: Dyspnea, Cough, Dyspnea on exertion Gastrointestinal: Denies: Abdominal pain, Nausea, Vomiting, Diarrhea, Melena, Hematochezia Genitourinary: Denies: Dysuria, Hematuria, Frequency Musculoskeletal: Denies: Back pain, Extremity Pain Skin: Denies: Rash, Wounds Neurological: Reports: Weakness. Denies: Headache, Numbness Psych: Denies: Depression Endocrine: Denies: Polyuria Hematologic: Denies: Easy bruising Physical Exam Vital Signs/Narrative: Vital Signs Temp Pulse Resp BP Pulse Ox 02/20/19 12:42 96.8 F L 107 H 17 117/58 L 93 Inital Vital Signs reviewed: Yes General: Well nourished, Well developed, No Acute Distress Head: Normocephalic, Trauma - Small contusion over left frontal forehead Eyes: Perrl, EOMI ENT: Moist mucous membranes, No rhinorrhea Neck: Supple, Nontender Cardiovascular: Regular rate, Regular rhythm, No murmurs Respiratory: No distress, CTA bilaterally, Chest nontender Abdomen: Soft, Nontender, Nondistended, Normal bowel sounds Back: Nontender, Normal Inspection Extremities: No edema, Tenderness - Right elbow with superficial skin tear Skin: Normal color, No rash Neurological: Alert, Oriented x3, Cranial nerves II-XII grossly intact, Normal Strength, Normal Sensation Psychological: Normal affect, Normal Mood Diagnostic/Tx/Re-eval Chest X-Ray - ED: 2 View, Chronic Changes, Left Effusion Clinical Impression(s) from Imaging Studies Brain CT 02/20/19 12:57 IMPRESSION: 1. Chronic involutional changes without evidence of acute intracranial or calvarial abnormality. 2. Stable right cerebellar infarct. 3. Remote lacunar infarct in the left thalamus. This was not seen on the 2016 studies. Electronically Signed: Ezra Fernandez DO at 16:16 EDT Tel [phone], Service support , Elbow X-Ray 02/20/19 12:58 IMPRESSION: 1. Degenerative changes of the elbow without acute fracture or dislocation. 2. 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 Electronically Signed: Ezra Fernandez DO at 16:19 EDT Tel [phone], Service support , Chest X-Ray 02/20/19 15:55 IMPRESSION: 1. Blunting of the left costophrenic angle. Pleural effusion/atelectasis/infiltrate. 2. No other evidence of acute process or interval change. Electronically Signed: Ezra Fernandez DO at 16:25 EDT Tel [phone], Service support , Abnormal Lab Results 02/20/19 02/20/1902/20/19 15:30 15:30 15:30 WBC 15.4 H RBC 4.57 L Hgb 13.2 Hct 39.1 L MCV 85.6 MCH 28.9 MCHC 33.8 RDW Std Deviation 44.8 H RDW Coeff of Pippa 14.3 Plt Count 196 MPV 10.7 Immature Gran % (Auto) 0.800 Neut % (Auto) 82.1 H Lymph % (Auto) 7.9 L Crisp % (Auto) 8.8 Eos % (Auto) 0.1 Baso % (Auto) 0.3 Absolute Neuts (auto) 12.6 H Absolute Lymphs (auto) 1.21 Nucleated RBC % 0 Sodium 138 Potassium 3.6 Chloride 103 Carbon Dioxide 29.0 Anion Gap 6 BUN 35 H Creatinine 1.48 H Estim Creat Clear Calc 45.74 Est GFR (MDRD) Af Amer 59 L Est GFR (MDRD) Non-Af 49 L BUN/Creatinine Ratio 23.6 H Glucose 125 H Calcium 8.7 Total Bilirubin 1.80 H AST 31 ALT 16 Alkaline Phosphatase 75 Total Creatine Kinase 629 H Total Protein 6.6 Albumin 3.1 L Globulin 3.5 Albumin/Globulin Ratio 0.9 - Rhythm Strip Rhythm Strip: Sinus Rhythm Ectopy: None - Medical Decision Making The patient presents with increasing weakness after mechanical fall. He does have gait instability secondary to his prior stroke. He was able to get himself up and had to wait on the ground overnight until his son was there. He did suffer a contusion of the elbow. I did obtain x-rays of the elbow which show no fracture. Chest x-ray shows a small effusion on the left. The patient has not had fever or increasing cough. I have a lower suspicion for pneumonia. CT the head shows his old stroke, but no other acute abnormalities. Screening labs do show some mild renal insufficiency and elevation of his CK. The patient is concerned with his increasing weakness and the fact is having significant difficulties with gait and taking care of himself. He now has evidence of acute kidney injury and I am unsure of his creatinine kinase is on his way up or down. I do feel that he would benefit from observation for gentle hydration and reevaluation. The patient was discussed with the hospitalist. Impression 1. Acute kidney injury 2. Dehydration 3. Generalized weakness ED Disposition - Plan for ED Patient: Referrals: Ash Barclay Chi, MD [Primary Care Provider] -
--- NOTE | 2019-02-20 12:58 | RAD_ITS ---
STUDY: X-RAY - RIGHT ELBOW REASON FOR EXAM: Male, 78 years old. Fell out of bed. Laceration on the right elbow. TECHNIQUE: 3 view(s) of the elbow. COMPARISON: None. FINDINGS: There is a bony outgrowth from the anterior aspect of the distal humeral diaphysis thought to be in osteochondroma. Normal radius and ulna. There is a well-corticated bony density adjacent to the medial humeral epicondyles representing calcifications within the tendon versus remote avulsion. There is a tiny cc of flight at the insertion of the triceps tendon on the olecranon. There is degenerative arthrosis of the radiocapitellar and ulnotrochlear articulations. There is no acute fracture, dislocation or destructive osseous pathology. The soft tissue structures are unremarkable. RAD/Elbow min 3 Views IMPRESSION: 1. Degenerative changes of the elbow without acute fracture or dislocation. 2. 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 Electronically Signed: Ezra Fernandez DO at 16:19 EDT Tel [phone], Service support ,
[2019-02-20 14:50] VITALS: BMI 33.0
[2019-02-20 15:38] LABS: Absolute Lymphocyte Count 1.21 X10^3/uL (0.83-4.51); Absolute Neutrophil Count 12.6 X10^3/uL (2.0-7.7); Basophil# 0.04 X10^3/uL; Basophil% 0.3 % (0-1); Eosinophil# 0.01 X10^3/uL; Eosinophils% 0.1 % (0-5); Hematocrit 39.1 % (40-54); Hemoglobin 13.2 g/dL (13.0-16.5); Lymphocyte # 1.21 X10^3/ul (4.0); Lymphocyte % 7.9 % (19-41); Mean Corp Hgb Conc 33.8 g/dL (32-36); Mean Corpuscular Hgb 28.9 pg (27.0-32.0); Mean Corpuscular Volume 85.6 fL (80-94); Mean Platelet Vol. 10.7 fl (6.2-12.0); Monocyte# 1.36 X10^3/uL; Monocyte% 8.8 % (0-10); NRBC Flagged by Analyzer 0 % (0-5); Neutrophil # 12.63 X10^3/uL (2.7-7.7); Neutrophil % 82.1 % (47-70); Platelet Count 196 K/mm3 (150-450); RBC Distribution Width CV 14.3 % (11.6-14.6); RBC Distribution Width SD 44.8 fl (35.1-43.9); Red Blood Count 4.57 M/mm3 (4.6-6.2); White Blood Count 15.4 K/mm3 (4.4-11.0)
[2019-02-20 15:54] LABS: ALB/GLOB Ratio 0.9 RATIO (0.9-2.4); AST(SGOT) 31 U/L (15-37); Alanine Aminotransfer ALT/SGPT 16 U/L (16-61); Albumin, Serum 3.1 g/dL (3.2-5.0); Alkaline Phosphatase 75 U/L (45-117); Anion Gap 6 (5-15); BUN 35 mg/dL (7-18); BUN/Creat Ratio 23.6 RATIO (10-20); Calcium,Total 8.7 mg/dL (8.5-10.1); Chloride 103 mmol/L (98-107); Creatinine, Serum 1.48 mg/dL (0.70-1.30); EST Glomerular Filtration Rate 49 mL/min (>60); Est Glom Filt Rate - Afr Amer 59 mL/min (>60); Estimated Creatinine Clearance 45.74 ml/min; Globulin 3.5 g/dL (2.2-4.2); Glucose 125 mg/dL (74-106); Potassium 3.6 mmol/L (3.5-5.1); Protein, Total 6.6 g/dL (6.4-8.2); Sodium Level 138 mmol/L (136-145)
--- NOTE | 2019-02-20 15:55 | RAD_ITS ---
STUDY: X-RAY CHEST REASON FOR EXAM: Male, 78 years old. Weakness. Fell out of bed. TECHNIQUE: Single AP portable view of the chest. COMPARISON: March 11, 2016. FINDINGS: Telemetry wires overlie the chest. The lungs are well expanded. There is poor visualization of the left costophrenic angle and small effusion or infiltrate cannot be ruled out. The lungs appear otherwise clear. There is no pneumothorax. Normal size heart. Normal mediastinum and kai. Normal visualized pulmonary arteries. Normal visualized aortic arch and descending thoracic aorta. There are diffuse degenerative changes of the visualized thoracic spine. There is degenerative osteoarthritis of the bilateral shoulders. There is no demonstrated abnormality of the visualized soft tissue structures of the upper abdomen. RAD/Chest 1 View (Portable) IMPRESSION: 1. Blunting of the left costophrenic angle. Pleural effusion/atelectasis/infiltrate. 2. No other evidence of acute process or interval change. Electronically Signed: Ezra Fernandez DO at 16:25 EDT Tel [phone], Service support ,
[2019-02-20 16:01] LABS: CPK Total, Creatine Kinase 629 U/L (39-308)
--- NOTE | 2019-02-20 16:40 | NURSING ---
MED SURG WHITE ACUTE KIDNEY INJURY
--- NOTE | 2019-02-20 16:52 | NURSING ---
[address] , BRYANTO, ARTHUR WHITE
--- NOTE | 2019-02-20 16:56 | PCM.HP.STD ---
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 Status: Chronic (8) Diabetes mellitus Status: Chronic Qualifiers: Diabetes mellitus speech language pathology assistant insulin use: unspecified mcfp insulin use status Diabetes mellitus complication status: with neurologic complications Diabetes mellitus complication detail: with unspecified neuropathy (9) History of throat cancer Status: Chronic (10) Hypertension Status: Chronic Qualifiers: Hypertension type: unspecified secondary hypertension Qualified Code(s): I15.9 - Secondary hypertension, unspecified History of Present Illness Date of Admission: 02/20/19 Chief Complaint: falls The patient is a 78 year old M with pmhx of stroke with chronic right sided weakness, hx of esophageal cancer with tracheostomy in place through which he is able to speak, hx HTN, HLD, BPH, hypothyroidism, who presented to the ER today after being found down by his son. The patient had two falls yesterday, but he has been having multiple falls this month. The first fall was that he was walking with his walker and started to lose balance, he fell forward striking his head. Later he was attempting to climb into bed, his leg got stuck on the sheet, he could not untangle himself, and then he slid out of the bed onto his knees on the floor. He could not get up so he laid on the floor all night. In the morning he called his son who came and helped him up. He then came to the ER. He appears to have ARTHUR and early rhabdo. 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 (Chronic) Hypertension (Chronic) Diabetes mellitus (Chronic) Allergies No Known Allergies Allergy (Verified 02/20/19 12:42) Home Medications: Ambulatory Orders Medication Instructions Recorded Levothyroxine Sodium [Levo-T] 112 mcg PO DAILY 03/11/16 Lisinopril [Zestril] 30 mg PO DAILY 03/11/16 metFORMIN HCl [Glucophage] 500 mg PO BID 03/11/16 Aspirin [Aspirin, Baby] 81 mg PO DAILY@0800 02/22/18 Atorvastatin Calcium [Lipitor] 80 mg PO QHS 02/22/18 Tamsulosin HCl [Flomax] 0.4 mg PO QHS 02/22/18 Zolpidem Tartrate [Ambien] 10 mg PO QHS 02/22/18 Surgical History: appendectomy, - - tracheostomy Psychiatric History: No pertinent psych hx Lives: Alone Smoking Status: Former smoker Tobacco Use: Non-smoker Alcohol: None Drugs: None - *Family History Maternal History Items: Heart Disease Paternal History Items: Unknown Review of Systems Constitutional: Reports: Weakness. Denies: Chills, Fever, Weight Change HEENT: Denies: Difficulty Hearing, Difficulty Swallowing, Head Aches, Sinus Congestion, Sinus Drainage Cardiovascular: Denies: Chest Pain, Chest Pressure, Edema, Heaviness, Light Headedness, Palpitations, Paroxysmal Noc. Dyspnea, Syncope Respiratory: Denies: Cough, Shortness of Breath, Shortness of breath at rest, Shortness of breath upon exertion, Sputum production, Wheezing Gastrointestinal: Denies: Abdominal Pain, Diarrhea, Nausea, Vomiting Genitourinary: Denies: Dysuria Musculoskeletal: Denies: Joint Pain, Joint Tenderness Skin: Denies: Rash, Wounds Neurological: Denies: Numbness, Tingling, Focal weakness Psychiatric: Denies: Anxiety, Depression, Homicidal Ideations, Suicidal Ideations Hematologic/ Lymphatic: Denies: Easy Bruising, Easy Bleeding VTE Information - Inpt Only VTE Present on Admission: No VTE Mechan Device Prophylaxis: None VTE Pharm Prophylaxis ordered?: Yes Patient Problems: Active and Suspected Problems ARTHUR (acute kidney injury) (Acute) Rhabdomyolysis (Acute) - Physical Exam General: Alert, Oriented x3, Cooperative HEENT: Atraumatic, PERRLA, EOMI, Normocephalic Neck: Supple, No JVD, Negative Carotid Bruits, - - tracheostomy Lungs: Clear to auscultation, Normal air movement Cardiovascular: Regular rate, No murmurs Abdomen: Bowel Sounds Present, Soft, Non Tender Extremities: No edema, Capillary Refill Less than 3 Seconds Skin: No rashes, No breakdown, - - multiple bruises upper extremity Musculoskeletal: No Tenderness to Palpation of Joints or Extremities Neurological: Cranial nerves II-XII grossly intact Psych/Mental Status: Normal Affect, Appropriate, Alert and oriented to time, place, person, mood and affect Vital Signs Temp Pulse Resp BP Pulse Ox 96.8 F L 107 H 17 117/58 L 93 02/20/19 12:42 02/20/19 12:42 02/20/19 12:42 02/20/19 12:42 02/20/19 12:42 Oxygen Delivery Method Room Air Weight: 250 lb Body Mass Index (BMI) 33.0 Finger Stick Blood Glucose 135 Laboratory Tests Past 24 Hrs 02/20/19 02/20/19 02/20/19 15:30 15:30 15:30 WBC 15.4 H RBC 4.57 L Hgb 13.2 Hct 39.1 L MCV 85.6 MCH 28.9 MCHC 33.8 RDW Std Deviation 44.8 H RDW Coeff of Pippa 14.3 Plt Count 196 MPV 10.7 Immature Gran % (Auto) 0.800 Neut % (Auto) 82.1 H Lymph % (Auto) 7.9 L [place] % (Auto) 8.8 Eos % (Auto) 0.1 Baso % (Auto) 0.3 Absolute Neuts (auto) 12.6 H Absolute Lymphs (auto) 1.21 Nucleated RBC % 0 Sodium 138 Potassium 3.6 Chloride 103 Carbon Dioxide 29.0 Anion Gap 6 BUN 35 H Creatinine 1.48 H Estim Creat Clear Calc 45.74 Est GFR (MDRD) Af Amer 59 L Est GFR (MDRD) Non-Af 49 L BUN/Creatinine Ratio 23.6 H Glucose 125 H Calcium 8.7 Total Bilirubin 1.80 H AST 31 ALT 16 Alkaline Phosphatase 75 Total Creatine Kinase 629 H Total Protein 6.6 Albumin 3.1 L Globulin 3.5 Albumin/Globulin Ratio 0.9 Assessment/Plan All Active Problems ARTHUR (acute kidney injury) (Acute) Rhabdomyolysis (Acute) Carotid stenosis, right (Acute) Occlusion of right vertebral artery (Acute) TIA (transient ischemic attack) (Acute) 1. Acute kidney injury with early acute rhabdomyolysis 2/2 fall and laying on the floor all night - Cr up from baseline, CPK somewhat elevated. Hydrate with IV fluids and recheck CPK and BMP in AM. LFTs normal. Discontinue statin. Hold nephrotoxins - lisinopril, metformin. Suspect leukocytosis is reactive. No fever, no recent illness/infection. -CT brain negative for acute process -Elbow XR without fracture/dislocation. Osteochondroma noted. -CXR with blunting. 2. Debility - PTOT. Multiple falls recently. Ongoing right sided weakness from prior stroke. Check vitD. 3. DMt2 with obesity - hold metformin. SSI. Dietary eval. 4. Hypothyroid - check tsh. continue synthroid. 5. Insomnia - ambien is inappropriate in this patient. DC. Start melatonin. Monitor for withdrawal. DVT ppx: Renal dose lovenox. DC planning: PTOT, possible placement. This patient was seen by Eddie Morin PA-C under the supervision of Dr. Dutton.
[2019-02-20 17:00] VITALS: BP 153/67; PULSE 97; RESP 18; O2SAT 96; O2SAT 99
--- NOTE | 2019-02-20 17:17 | CASEMGMT ---
RN CM Assessment Introduced role of RN CM to patient and patient son Allen at bedside.? Patient is alert, oriented and able?to participate in RN CM Assessment. Has a Trach that he communicates with. ?Care providers, pharmacy, and demographics verified. Presentation: Fall with Generalized Weakness. Laid on Fl all night, son able to help patient up this morning. Ambulated with walker but slipped again and struck head. H/o prior stroke with Rt side weakness residual. Admit Dx: Fall, Rhabdo, ARTHUR Re-Admit: No Barriers/Issues: Patient lives alone, weak, falls. PCP: Ash Barclay Chi Specialists: Onc- Dr Garry Eugene from [facility]- retired. Follows with ENT Dr Eliud Zeng Preferred Pharmacy: [facility] Insurance: [facility] Rx Benefit:?Yes LNOK: Ganga Delgado Living Arrangements:? Lives alone in a Mobile home at: [address] [place] [address] ([facility]) [address]- for any CM coordination needs. 5 Steps to enter home. ADL?s: Ambulates with cane, walker at home, walking stick. Independent with ADLs Transportation: Patient drives, son to transport upon DC DME: Cane, Walker, Trach Supplies/Suction- through [employer] and whatever company took over for them. HHC: None. States that he follows up with [facility] and goes somewhere every so many months to get checked. SNF: None, has been to the Rehab unit here at [facility]. States if recommended, he is open to DC to a SNF for rehab. States has no preference of SNF but would like a In Network List of SNF's close to home to review. Goal: Open to SNF if recommended, Open to HH and/or Outpatient PT if recommended. DC PLAN: TBD, will have PT/OT eval. Possible SNF placement. REZA Sewell
[2019-02-20 17:25] VITALS: BMI 32.5
[2019-02-20 17:30] VITALS: BP 160/99; PULSE 96; RESP 18; TEMP 36.7; O2SAT 92
[2019-02-20] MEDS: 0.9% Normal Saline 1,000 ML 150 ML IV (18:07)
[2019-02-20 19:59] VITALS: O2SAT 93
[2019-02-20 22:13] VITALS: BP 145/60; PULSE 86; RESP 20; TEMP 37.3; O2SAT 98
[2019-02-20] MEDS: Tamsulosin HCl 0.4 MG Capsule PO (22:17)
[2019-02-21] VITALS (7 sets, daily range): BP systolic 134–171; BP diastolic 66–79; PULSE 77–102; RESP 18–20; TEMP 36.7–37.4; O2SAT 92–97
[2019-02-21 00:01] LABS: Bedside Glucose 137 mg/dL (70-110)
[2019-02-21] MEDS: MELATONIN 3 MG TABLET PO ×2 (00:28→23:01)
[2019-02-21] MEDS: 0.9% Normal Saline 1,000 ML 150 ML IV (00:31)
[2019-02-21 06:10] LABS: Absolute Lymphocyte Count 1.83 X10^3/uL (0.83-4.51); Absolute Neutrophil Count 9.6 X10^3/uL (2.0-7.7); Basophil# 0.04 X10^3/uL; Basophil% 0.3 % (0-1); Eosinophil# 0.11 X10^3/uL; Eosinophils% 0.9 % (0-5); Hematocrit 39.5 % (40-54); Hemoglobin 13.1 g/dL (13.0-16.5); Lymphocyte # 1.83 X10^3/ul (4.0); Lymphocyte % 14.2 % (19-41); Mean Corp Hgb Conc 33.2 g/dL (32-36); Mean Corpuscular Hgb 28.8 pg (27.0-32.0); Mean Corpuscular Volume 86.8 fL (80-94); Mean Platelet Vol. 11.2 fl (6.2-12.0); Monocyte# 1.19 X10^3/uL; Monocyte% 9.3 % (0-10); NRBC Flagged by Analyzer 0 % (0-5); Neutrophil # 9.57 X10^3/uL (2.7-7.7); Neutrophil % 74.4 % (47-70); Platelet Count 173 K/mm3 (150-450); RBC Distribution Width CV 14.6 % (11.6-14.6); RBC Distribution Width SD 46.6 fl (35.1-43.9); Red Blood Count 4.55 M/mm3 (4.6-6.2); White Blood Count 12.9 K/mm3 (4.4-11.0)
[2019-02-21 06:49] LABS: ALB/GLOB Ratio 0.8 RATIO (0.9-2.4); AST(SGOT) 28 U/L (15-37); Alanine Aminotransfer ALT/SGPT 17 U/L (16-61); Albumin, Serum 2.7 g/dL (3.2-5.0); Alkaline Phosphatase 75 U/L (45-117); Anion Gap 8 (5-15); BUN 30 mg/dL (7-18); BUN/Creat Ratio 28.3 RATIO (10-20); CPK Total, Creatine Kinase 267 U/L (39-308); Calcium,Total 8.3 mg/dL (8.5-10.1); Chloride 108 mmol/L (98-107); Creatinine, Serum 1.06 mg/dL (0.70-1.30); EST Glomerular Filtration Rate 72 mL/min (>60); Est Glom Filt Rate - Afr Amer 87 mL/min (>60); Estimated Creatinine Clearance 63.86 ml/min; Globulin 3.4 g/dL (2.2-4.2); Glucose 127 mg/dL (74-106); Magnesium 1.9 mg/dL (1.6-2.6); Potassium 3.3 mmol/L (3.5-5.1); Protein, Total 6.1 g/dL (6.4-8.2); Sodium Level 142 mmol/L (136-145); Thyroid Stim Hormone (TSH) 2.11 uIU/mL (0.358-3.74)
[2019-02-21] MEDS: Levothyroxine 112 MCG Tablet PO (06:54)
[2019-02-21 07:20] LABS: Bedside Glucose 125 mg/dL (70-110)
[2019-02-21] MEDS: 0.9% Normal Saline 1,000 ML 75 ML IV ×2 (09:19→18:14)
[2019-02-21] MEDS: Aspirin 81 MG TAB.CHEW PO (09:20)
[2019-02-21] MEDS: Enoxaparin 30 MG/0.3 ML Syringe SC (09:20)
--- NOTE | 2019-02-21 10:30 | CASEMGMT ---
Social Work Note Physician updated this worker that pt has been to before and is requesting to return to . SW met with pt to confirm discharge plans. Pt is alert and orientated x3. PT communicates through Trach. Pt states that he lives alone and DME include can and walker. SW asked pt about discharge plans. Pt states that he was at a few years ago. SW did review pt's chart and pt was on [facility] 2016 for stroke. SW informed pt that for [facility] there has to be a qualifying diagnosis and a stroke is a qualifying diagnosis but at this time pt only has debility, fall, rhabdo and ARTHUR. SW explained that this worker call call [facility] and ask if they have any beds available or if they can accept pt. SW also explained that approval from pt's insurance will also be needed. Pt states they have never told me no before. SW explained that this worker will still need to speak to his insurance company. SW asked pt about a back up plan in the event [facility] is not able to accept or pt is denied [facility]. Pt states guess I'll go back home and fall. SW educated pt on SNF. SW provided pt with list of SNF that accept pt's insurance. Pt states that he has been to [place] and [facility] before, doesn't want to return there. Pt again states I don't know in regards to SNF. SW explained that this worker will call [facility] and provide referral and wait to hear from [facility]. Pt states understanding. SW placed a call to [place] with [facility] and left message providing referral. SW waiting for call back. Plan: [facility] vs SNF Alicia Crouch CLOSET BUILDER, BIG DATA ADMIN
[2019-02-21 12:20] LABS: Bedside Glucose 135 mg/dL (70-110)
--- NOTE | 2019-02-21 12:55 | PN_ITS ---
Patient Problems: Active and Suspected Problems ARTHUR (acute kidney injury) (Acute) Rhabdomyolysis (Acute) Subjective: C/o BL hip pain. No swelling in the extremities. No fever/chills. No cough/SOB. Pt did ambulate with walker today to the bathroom. He is in good spirits and is in the chair at bedside in [facility]. - Physical Exam General: Alert, Oriented x3, Cooperative HEENT: Atraumatic, PERRLA, EOMI, Normocephalic Neck: Supple, No JVD, Negative Carotid Bruits, - - tracheostomy Lungs: Clear to auscultation, Normal air movement, - Cardiovascular: Regular rate, No murmurs Abdomen: Bowel Sounds Present, Soft, Non Tender Extremities: No edema, Capillary Refill Less than 3 Seconds Skin: No rashes, No breakdown Musculoskeletal: No Tenderness to Palpation of Joints or Extremities Neurological: Cranial nerves II-XII grossly intact Psych/Mental Status: Normal Affect, Appropriate Vital Signs Temp Pulse Resp BP Pulse Ox 98.6 F 102 H 18 134/70 H 96 02/21/19 09:10 02/21/19 09:10 02/21/19 09:10 02/21/19 09:10 02/21/19 09:10 Oxygen Delivery Method Room Air Weight: 247 lb Body Mass Index (BMI) 32.5 Finger Stick Blood Glucose 135 Intake and Output for Last 24 Hours 02/19/19 02/20/19 02/21/19 23:59 23:59 23:59 Intake Total 2706 / 2706 Balance 2706 / 2706 Laboratory Tests Past 24 Hrs 02/20/19 02/20/19 02/20/19 15:30 15:30 15:30 WBC 15.4 H RBC 4.57 L Hgb 13.2 Hct 39.1 L MCV 85.6 MCH 28.9 MCHC 33.8 RDW Std Deviation 44.8 H RDW Coeff of [place] 14.3 Plt Count 196 MPV 10.7 Immature Gran % (Auto) 0.800 Neut % (Auto) 82.1 H Lymph % (Auto) 7.9 L [place] % (Auto) 8.8 Eos % (Auto) 0.1 Baso % (Auto) 0.3 Absolute Neuts (auto) 12.6 H Absolute Lymphs (auto) 1.21 Nucleated RBC % 0 Sodium 138 Potassium 3.6 Chloride 103 Carbon Dioxide 29.0 Anion Gap 6 BUN 35 H Creatinine 1.48 H Estim Creat Clear Calc 45.74 Est GFR (MDRD) Af Amer 59 L Est GFR (MDRD) Non-Af 49 L BUN/Creatinine Ratio 23.6 H Glucose 125 H Calcium 8.7 Magnesium Total Bilirubin 1.80 H AST 31 ALT 16 Alkaline Phosphatase 75 Total Creatine Kinase 629 H Total Protein 6.6 Albumin 3.1 L Globulin 3.5 Albumin/Globulin Ratio 0.9 TSH 02/21/19 02/21/19 05:38 05:38 WBC 12.9 H RBC 4.55 L Hgb 13.1 Hct 39.5 L MCV 86.8 MCH 28.8 MCHC 33.2 RDW Std Deviation 46.6 H RDW Coeff of [place] 14.6 Plt Count 173 MPV 11.2 Immature Gran % (Auto) 0.900 Neut % (Auto) 74.4 H Lymph % (Auto) 14.2 L [place] % (Auto) 9.3 Eos % (Auto) 0.9 Baso % (Auto) 0.3 Absolute Neuts (auto) 9.6 H Absolute Lymphs (auto) 1.83 Nucleated RBC % 0 Sodium 142 Potassium 3.3 L Chloride 108 H Carbon Dioxide 26.0 Anion Gap 8 BUN 30 H Creatinine 1.06 Estim Creat Clear Calc 63.86 Est GFR (MDRD) Af Amer 87 Est GFR (MDRD) Non-Af 72 BUN/Creatinine Ratio 28.3 H Glucose 127 H Calcium 8.3 L Magnesium 1.9 Total Bilirubin 1.40 H AST 28 ALT 17 Alkaline Phosphatase 75 Total Creatine Kinase 267 Total Protein 6.1 L Albumin 2.7 L Globulin 3.4 Albumin/Globulin Ratio 0.8 L TSH 2.11 POC Glucose 02/21/19 02/21/19 02/20/19 12:14 06:56 22:21 POC Glucose 135 H 125 H 137 H Medical Necessity - Tobacco Use Smoking Status: Former smoker Tobacco Use: Non-smoker Assessment/Plan All Active Problems ARTHUR (acute kidney injury) (Acute) Rhabdomyolysis (Acute) Carotid stenosis, right (Acute) Occlusion of right vertebral artery (Acute) TIA (transient ischemic attack) (Acute) 1. Acute kidney injury with early acute rhabdomyolysis 2/2 fall and laying on the floor all night - Resolved. IV fluids decresed. K repleted. Check AM BMP. 2. Debility - PTOT. Multiple falls recently. Ongoing right sided weakness from prior stroke. Check vitD. 3. DMt2 with obesity - hold metformin. SSI. Dietary eval. 4. Hypothyroid - normal tsh. continue synthroid. 5. Insomnia - no more ambien, continue melatonin. DVT ppx: Renal dose lovenox. DC planning: Plan is for SNF. This patient was seen by Eddie Morin PA-C under the supervision of Dr. Silva
[2019-02-21 14:30] LABS: Vitamin D,25 Hydroxy 28.3 ng/mL (29.95-100.01)
[2019-02-21] MEDS: Acetaminophen 325 MG Tablet 650 MG PO (14:40)
--- NOTE | 2019-02-21 14:50 | CASEMGMT ---
Addendum entered by Alicia Crouch 02/21/19 15:16: BRIAN placed a call to Janette Olmedo at [facility] and updated her that Lilian at [facility] will not approve on time contract and to disregard referral. Original Note: Social Work Note SW received message from [employer] with [facility] stating pt is doing too well for RU and pt's insurance will deny him RU. SW in to update pt of this. SW provided pt with list of area SNF that accept pt's insurance. Pt requesting referral be sent to [facility]. SW explained referral process and that pt will need pre-cert. BRIAN faxed referral to [facility] and placed a call to Janette Olmedo to provide referral. BRIAN faxed referral. BRIAN received call from Janette Olmedo at [facility] stating since becoming [facility] their contract with [facility] hasn't been confirmed yet and is still in the process of getting contract. Janette Olmedo states she spoke with Carissa at [facility] and mentioned possibly a one time contract. BRIAN informed Cecy that this worker submits for approval through [facility] and will call Lilian. BRIAN placed a call to Lilian at [facility] and provided referral. Lilian states that she will not approve a one time contract for pt as there are plenty of other SNF in the area that accept pt's insurance. BRIAN in to update that since [facility] is now [facility], they are no longer in network with pt's insurance. BRIAN again reviewed list of SNF with pt. Pt states this is a stressful decision and my son and DIL have always been involved in my life. SW asked pt if this worker could call his son and pt states he is at work until 4:00pm and will be in to [facility] later this afternoon. Pt denied wanting this worker to call his son. Pt then states Maybe I will just go home and do outpatient therapy. SW explained that that is an option but asked pt if he felt safe at home and pt states I know I can do it at home, may fall again but I don't know. Pt states that his son will be in later today. SW encouraged pt to discuss discharge plans when his son comes in today and if they decide SNF then to [facility] which SNF they would like. Pt states understanding. Physician updated. Plan: TBD. Pt's son will be coming to [facility] today to discuss discharge plans with pt. Alicia Crouch MACHINE STEMMER, CLINICAL COUNSELOR
--- NOTE | 2019-02-21 16:19 | CASEMGMT ---
Social Work Note BRIAN placed a call to Lilian at [facility] and left her a message that pt and pt's son will be discussing additional SNF options and that this worker will follow up with pt tomorrow. Lilian at [facility] has left for the day. BRIAN to update Lilian at [facility] on facility that pt and pt's son chooses. Plan: SNF pending acceptance and pre-cert Alicia Crouch LANCE CREWMEMBER/MLRS SERGEANT, RETAIL POS SPECIALIST
[2019-02-21 16:55] LABS: Bedside Glucose 116 mg/dL (70-110)
--- NOTE | 2019-02-21 19:31 | NURSING ---
pt reported to this RN that he would like to got to [facility] on discharge.
[2019-02-21] MEDS: hydrALAZINE 20 MG/ML Vial 10 MG IV (19:56)
[2019-02-21] MEDS: 0.9% NaCl Peripheral Flush Adult/Peds IV (19:57)
[2019-02-21] MEDS: Insulin Lispro 100 UNIT/ML INSULN.PEN SC (22:59)
[2019-02-21] MEDS: Tamsulosin HCl 0.4 MG Capsule PO (22:59)
[2019-02-21 23:11] LABS: Bedside Glucose 151 mg/dL (70-110)
[2019-02-22 02:00] VITALS: BP 152/82; PULSE 79; RESP 18; TEMP 36.7; O2SAT 94
[2019-02-22 06:30] LABS: Anion Gap 7 (5-15); BUN 24 mg/dL (7-18); BUN/Creat Ratio 31.5 RATIO (10-20); Calcium,Total 7.9 mg/dL (8.5-10.1); Chloride 113 mmol/L (98-107); Creatinine, Serum 0.76 mg/dL (0.70-1.30); EST Glomerular Filtration Rate 105 mL/min (>60); Est Glom Filt Rate - Afr Amer 127 mL/min (>60); Estimated Creatinine Clearance 67.69 ml/min; Glucose 113 mg/dL (74-106); Potassium 3.7 mmol/L (3.5-5.1); Sodium Level 143 mmol/L (136-145)
[2019-02-22] MEDS: Levothyroxine 112 MCG Tablet PO (06:57)
[2019-02-22] MEDS: 0.9% Normal Saline 1,000 ML 75 ML IV (06:59)
[2019-02-22 07:06] LABS: Bedside Glucose 107 mg/dL (70-110)
[2019-02-22 07:50] LABS: Color, Urine Yellow (Yellow); Glucose, Dipstick 50 mg/dl (Normal); Ketone-Dipstick 15 mg/dl (Negative); Leukocyte Esterase-Dipstick 25 /ul (Negative); Nitrite-Dipstick Negative (Negative); Occult Blood-Urine 10 /ul (Negative); Protein-Dipstick 30 mg/dl (Negative); Specific Gravity, Urine 1.015 (1.002-1.030); Urine Bilirubin Dipstick Negative (Negative); Urine Clarity Clear (Clear); Urine Urobilinogen 1 mg/dl (Normal)
[2019-02-22 08:10] VITALS: BP 152/75; PULSE 76; RESP 18; TEMP 36.9; O2SAT 95
[2019-02-22] MEDS: Aspirin 81 MG TAB.CHEW PO (08:10)
[2019-02-22 08:11] VITALS: O2SAT 93
[2019-02-22 08:19] LABS: Bacteria RARE /hpf (None Seen); Red Blood Cells-Urine 0-5 SEEN /hpf (0-5); Squamous Epithelial Cells - UA 0-5 SEEN /hpf (0-5); White Blood Cells 0-5 SEEN /hpf (0-5)
[2019-02-22 08:20] LABS: Mucous, Urine RARE /hpf (<or=2+)
[2019-02-22 09:02] LABS: Hemoglobin A1c 6.8 % (4.2-6.3)
--- NOTE | 2019-02-22 10:07 | CASEMGMT ---
Addendum entered by Alicia Crouch 02/22/19 11:32: BRIAN received call from Breanne at [facility] asking what size pt's trach is, if pt can come with replacement trach, o2 setting and stated that she would need respiratory to come in and train staff on trach and that may not happen today. SW reviewed notes and spoke with RN AZAM. Pt is on speaking valve over trach, no O2, pt changes trach 2x a month, pt suctions trach after breakfast, and is not on O2. SW placed a call back to Breanne at [facility] and left her a message updating her on this. Original Note: Social Work Note SW reviewed notes and pt is agreeable to [facility]. SW met with pt. Pt confirms he is agreeable to [facility]. Pt asked about transportation. SW informed pt that he could be transported via wheelchair vans but that he would get a bill as his insurance doesn't cover wheelchair van transportation. Pt states that he isn't worried about a bill but did state that his son is able to transport pt. Pt states that his son gets off work around 2:30-3:00pm. SW explained that this worker will make referral and will speak to pt's insurance today and that pt should be able to be discharged today. Pt states understanding. SW faxed referral to [facility]. SW placed a call to Breanne at [facility] and left her a message regarding referral. Plan: [facility] pending acceptance and pre-cert Alicia Crouch SURVEILLANCE DIRECTOR, DEPUTY CHIEF EXECUTIVE
--- NOTE | 2019-02-22 10:48 | PCM.EXTCARCO ---
- Diet 02/20/19 17:34 Diet: Calorie Controlled Food consistency:: Regular Liquid Consistency:: Regular/Thin Is pt able to select menu?: No How many daily calories?: 1800 calorie - Routine Orders/Code Status Suppository Type: Dulcolax 10mg Suppository Frequency: Daily PRN Routine Lab Work: CBC - 1 week, BMP - 3 days Code Status: Full Code - Wound(s) Right elbow, wrist, hand Wound Type: Abrasion left elbow Wound Type: Abrasion - Therapies Physical Therapy: Eval and Treat Occupational Therapy: Eval and Treat - Problem/Diagnosis (1) ARTHUR (acute kidney injury) Status: Acute Current Visit: Yes (2) Rhabdomyolysis Status: Acute Current Visit: Yes (3) Debility Status: Chronic Current Visit: Yes (4) HLD (hyperlipidemia) Status: Chronic Current Visit: Yes (5) BPH (benign prostatic hyperplasia) Status: Chronic Current Visit: Yes (6) Hypothyroid Status: Chronic Current Visit: No (7) 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 Status: Chronic Current Visit: No (8) Diabetes mellitus Status: Chronic Current Visit: No (9) History of throat cancer Status: Chronic Current Visit: No (10) Hypertension Status: Chronic Current Visit: No - Allergies/Procedures Done in Hospital Allergies/Adverse Reactions: Allergies No Known Allergies Allergy (Verified 02/20/19 12:42) Procedures: None - Type of Care/Length of Stay Estimated LOS: Convalescent Care Less Than 30 days Type of Care Needed: Skilled Rehab Potential: Fair Prognosis: Fair - Additional Orders/Day of Discharge Day of Discharge: 02/22/19 - Dietary and Speech Recommendations Dietitian Recommendations/Changes: Suggest diet change to 2000 calorie/cardiac with texture/consistency as per speech. - Follow Up Care Primary Care Physician: Ash Barclay Chi, MD [Primary Care Provider] - Please follow up with your Primary Care Physician in: 2 weeks
[2019-02-22] MEDS: Enoxaparin 30 MG/0.3 ML Syringe SC (11:32)
[2019-02-22] MEDS: Glucerna Shake 120 ML LIQUID PO (11:34)
[2019-02-22 11:50] LABS: Bedside Glucose 137 mg/dL (70-110)
--- NOTE | 2019-02-22 11:59 | PCM.DC.SUM ---
Discharge Date and Diagnosis - Problem List Patient Problems: Active and Suspected Problems ARTHUR (acute kidney injury) (Acute) Rhabdomyolysis (Acute) Date of Admission: 02/20/19 Date of Discharge: 02/22/19 - Primary Discharge Diagnosis Active and Suspected Problems ARTHUR (acute kidney injury) (Acute) Rhabdomyolysis (Acute) Debility, falls Hx CVA with chronic right sided weakness Hx esophageal cancer with Tracheostomy Insomnia DMt2 Hypothyroidism - Secondary Discharge Diagnosis Chronic Problems Debility (Chronic) HLD (hyperlipidemia) (Chronic) BPH (benign prostatic hyperplasia) (Chronic) History of throat cancer (Chronic) Hypothyroid (Chronic) 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 Chronic involutional changes without evidence of acute intracranial or calvarial abnormality. 2. Stable right cerebellar infarct. 3. Remote lacunar infarct in the left thalamus. This was not seen on the 2016 studies. RAD/Elbow min 3 Views IMPRESSION: 1. Degenerative changes of the elbow without acute fracture or dislocation. 2. 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 RAD/Chest 1 View (Portable) IMPRESSION: 1. Blunting of the left costophrenic angle. Pleural effusion/atelectasis/infiltrate. 2. No other evidence of acute process or interval change. Operations: None Procedures: None Summary of Care Provided: Hospital Course: The patient is a 78 year old M with pmhx as above who presented to the ER due to weakness. He was attempting to get into bed the night prior to presentation however his leg got caught and he fell to the floor. He laid on the floor all night. He was brought to the ER the following morning and was found to have ARTHUR and mild rhabdomyolysis. He was admitted to the gen med floor and given IV hydration. His ARTHUR and rhabdo resolved. He remained weak and has had increasing falls over the past month, he also lives alone with no assistance. He worked with PTOT and SNF was recommended. He was agreeable and discharged to [facility] in stable condition. Also of note he had his ambien discontinued at admission as it may be contributing to his issues at home. He was started on melatonin instead. A1C was 6.8 which is appropriate for his age. TSH was normal. He was also started on vitamin D. He had elbow pain at presentation but xray was negative. This patient was seen by Eddie Morin PA-C under the supervision of Dr. Silva. [] Patient Problems: Active and Suspected Problems ARTHUR (acute kidney injury) (Acute) Rhabdomyolysis (Acute) - Physical Exam General: Alert, Oriented x3, Cooperative HEENT: Atraumatic, PERRLA, EOMI, Normocephalic Neck: Supple, No JVD, Negative Carotid Bruits, - - tracheostomy Lungs: Clear to auscultation, Normal air movement Cardiovascular: Regular rate, No murmurs Abdomen: Bowel Sounds Present, Soft, Non Tender Extremities: No edema, Capillary Refill Less than 3 Seconds Skin: No rashes, No breakdown Musculoskeletal: No Tenderness to Palpation of Joints or Extremities Neurological: Cranial nerves II-XII grossly intact Psych/Mental Status: Normal Affect, Appropriate Vital Signs Temp Pulse Resp BP Pulse Ox 98.5 F 76 18 152/75 H 93 02/22/19 08:10 02/22/19 08:10 02/22/19 08:10 02/22/19 08:10 02/22/19 08:11 Oxygen Delivery Method Room Air Weight: 246 lb 14.684 oz Body Mass Index (BMI) 32.5 Finger Stick Blood Glucose 135 Intake and Output for Last 24 Hours 02/20/19 02/21/19 02/22/19 23:59 23:59 23:59 Intake Total 3523 / 4085 1257 / 1257 Balance 3523 / 4085 1257 / 1257 Laboratory Tests Past 24 Hrs 02/20/19 02/20/19 02/22/19 07:25 15:30 05:46 Sodium 143 Potassium 3.7 Chloride 113 H Carbon Dioxide 23.0 Anion Gap 7 BUN 24 H Creatinine 0.76 Estim Creat Clear Calc 67.69 Est GFR (MDRD) Af Amer 127 Est GFR (MDRD) Non-Af 105 BUN/Creatinine Ratio 31.5 H Glucose 113 H Hemoglobin A1c Calcium 7.9 L Vitamin D 25-Hydroxy 28.3 L Urine Color Yellow Urine Clarity Clear Urine pH 6.0 Ur Specific [place] 1.015 Urine Protein 30 H Urine Glucose (UA) 50 H Urine Ketones 15 H Urine Occult Blood 10 H Urine Nitrite Negative Urine Bilirubin Negative Urine Urobilinogen 1 H Ur Leukocyte Esterase 25 H Urine RBC 0-5 SEEN Urine WBC 0-5 SEEN Ur Squamous Epith Cells 0-5 SEEN Urine Bacteria RARE Urine Mucus RARE 02/22/19 05:46 Sodium Potassium Chloride Carbon Dioxide Anion Gap BUN Creatinine Estim Creat Clear Calc Est GFR (MDRD) Af Amer Est GFR (MDRD) Non-Af BUN/Creatinine Ratio Glucose Hemoglobin A1c 6.8 H Calcium Vitamin D 25-Hydroxy Urine Color Urine Clarity Urine pH Ur Specific [place] Urine Protein Urine Glucose (UA) Urine Ketones Urine Occult Blood Urine Nitrite Urine Bilirubin Urine Urobilinogen Ur Leukocyte Esterase Urine RBC Urine WBC Ur Squamous Epith Cells Urine Bacteria Urine Mucus POC Glucose 02/22/19 02/22/19 02/21/19 11:38 06:55 22:57 POC Glucose 137 H 107 151 H 02/21/19 02/21/19 16:40 12:14 POC Glucose 116 H 135 H Discharge Diet: No Restrictions, Low fat/ Low Cholesterol, 1800 Calorie Control Diet, 2000 mg Sodium Diet Discharge Activity: Return to Normal Activity Home Medications: Medications to take at Discharge Levothyroxine Sodium [Levo-T] 112 mcg PO DAILY 03/11/16 Lisinopril [Zestril] 30 mg PO DAILY 03/11/16 metFORMIN HCl [Glucophage] 500 mg PO BID 03/11/16 Aspirin [Aspirin, Baby] 81 mg PO DAILY@0800 02/22/18 Atorvastatin Calcium [Lipitor] 80 mg PO QHS 02/22/18 Tamsulosin HCl [Flomax] 0.4 mg PO QHS 02/22/18 Acetaminophen [Tylenol Tablet] 650 mg PO Q6H PRN PRN tab 02/22/19 Cholecalciferol (VIT D3) [Vitamin D3] 1,000 unit PO DAILYCM tab 02/22/19 Glucerna Shake 120 ml PO TIDCM liquid 02/22/19 Magnesium Hydroxide [Milk Of Magnesia] 30 ml PO DAILY PRN PRN udc 02/22/19 Melatonin 3 mg PO QHS PRN PRN tab 02/22/19 Psyllium [Metamucil] 1 packet PO DAILY PRN PRN packet 02/22/19 Primary Care Physician: Ash Barclay Chi, MD [Primary Care Provider] - Please follow up with your Primary Care Physician in: 2 weeks Disposition: Custodial facility Minutes spent on discharge:: 35 Patient Condition:: Stable Medical Necessity - Tobacco Use Smoking Status: Former smoker Tobacco Use: Non-smoker Meaningful Use Info Meaningful Use Diagnoses (Choose all that apply): None applicable
--- NOTE | 2019-02-22 13:45 | CASEMGMT ---
Addendum entered by Alicia Crouch 02/22/19 13:48: BRIAN completed convalescent 7000 in HENS. Original in SNF folder and copy on pt's chart. Original Note: Social Work Note SW received message from Breanne at [facility] stating they are able to accept pt and gave this worker permission to call Lilian at [facility]. BRIAN placed a call to Lilian at [facility] and Lilian approved for pt to be admitted to [facility]. BRIAN placed a call back to Breanne at [facility] and updated her on approval. Breanne confirms she is able to accept pt today. BRIAN updated pt on acceptance and approval to go to [facility]. Pt confirms that his son will be coming to [facility] around 3:00-3:30pm to transport pt. BRIAN faxed completed discharge paperwork to Breanne at [facility] including transfer to extended care facility, signed medication list and any scripts. Original in SNF folder and copy on pt's chart. BRIAN updated Breanne at [facility] on transportation time. RN updated on transportation time. Plan: [facility] today skilled with family transporting Alicia Crouch STRUCTURAL ANALYST, ANDROID IOS DEVELOPER
[2019-02-22 14:10] VITALS: BP 150/86; PULSE 77; RESP 18; TEMP 37.1; O2SAT 97
== END 2019-02-22 15:33 | disposition skilled nursing facility (03) | DRG 683 ==
LOC: ED 13:12 → MS3 16:58
PROVIDERS: Physician Assistant; Admitting Provider Family Medicine; Emergency Provider Emergency Medicine; Family Provider Family Medicine Geriatric Medicine; PCP Family Medicine Geriatric Medicine; Visit Provider Internal Medicine
DX: N17.9 Acute kidney failure, unspecified (principal); M62.82 Rhabdomyolysis; I69.351 Hemiplegia and hemiparesis following cerebral infarction affecting right dominant side; E44.0 Moderate protein-calorie malnutrition; E66.9 Obesity, unspecified; G47.00 Insomnia, unspecified; E86.0 Dehydration; S50.01XA Contusion of right elbow, initial encounter; S00.83XA Contusion of other part of head, initial encounter; W01.0XXA Fall on same level from slipping, tripping and stumbling without subsequent striking against object, initial encounter; Y93.01 Activity, walking, marching and hiking; W06.XXXA Fall from bed, initial encounter; Y92.029 Unspecified place in mobile home as the place of occurrence of the external cause; Y92.023 Bedroom in mobile home as the place of occurrence of the external cause; Z92.3 Personal history of irradiation; E78.5 Hyperlipidemia, unspecified; Z79.84 Long term (current) use of oral hypoglycemic drugs; Z68.32 Body mass index [BMI] 32.0-32.9, adult; E03.9 Hypothyroidism, unspecified; N40.0 Benign prostatic hyperplasia without lower urinary tract symptoms; E55.9 Vitamin D deficiency, unspecified; E87.6 Hypokalemia; Z85.01 Personal history of malignant neoplasm of esophagus; R53.81 Other malaise; E11.9 Type 2 diabetes mellitus without complications; I10 Essential (primary) hypertension; Z60.2 Problems related to living alone; Z87.891 Personal history of nicotine dependence
CPT/HCPCS: 36415; 70450; 71045; 73080; 80048; 80053; 81001; 82306; 82550; 82962; 83036; 83735; 84443; 85025; 92610; 93005; 97116; 97162; 97166; 97530; 97802; 99285; J7030; A4216

== ENCOUNTER 2019-05-05 13:30 | Outpatient (RCR) | payer MEDICARE, SELFPAY ==
--- NOTE | 2019-04-03 14:23 | HP.PTEVAL ---
Patient's Visit Information SABINE ORNELAS is a 79 year old M referred to Physical Therapy by Jackie Clark, MEGHNA with a diagnosis of debility CVA. Date of Evaluation: 04/03/19 Physical Therapist: Ori Perez, ANAMT, OCS, CSCS - Visit Plan Frequency: 2x /Week Duration: 4-6 Weeks Plan: 2x/week for 4-6 weeks for: 1. weight shifting FW/BW. 2. foam balance ex. 3. narrow ABDIEL balance ex. 4. general LE strength. All to progress as able to HEP. Gait training. - Subjective Findings: Went to get in bed one day and could not get R side in bed. slid down to floor and could not get up on a Wednesday evening. Laid there until Wednesday in his trailer. Went to [facility] for two days and then rehab at [facility], [place] . Was there two weeks. Balance is off. Had stroke 2 yrs ago and wakes up in the morning and stretches legs since that time and works arms. Has never had any other falls. 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 Legs give out at knees but does not fall. No pain. Uses cane to get around for the last 6 months under doctors orders. Has walker at home and can use those also. Has walking stick . Has 5 steps into trailer and banister and no problems. After sitting for a long time, legs may give out as they don't feel really strong. Bike at [facility], [place], operated by [facility] seemed to help. Doesn't think he had a stroke this time, just could not get up off floor. Activities include going out for breakfast and watches allot of TV. No regular ex. Basic ADLs are done I adn he is by himself.Has valve in throat to talk that he has to clean every morning. - Objective Walks slowly with poor weight shift adn neuropathic. Cane in L UE, safe on firm flat surface. Transfers I without UE. Steps are reciprocal adn require one rail. Sensation seems diminished to gross lgiht touch in LE. Strength LE ankles 4/5, knees 4+ adn hips 4-. Flex HS and gastroc limited. reflexes 0/3 patella and achilles B. Motor control coordination to reciprocal toe tap and heel tap is max deficits. - Balance Scores Functional Gait Assessment Score: 20 % Disability: 33.3400 - Goals Goal 1:: FGA to for safety Goal Time Frame: 4-6 Weeks Goal 2:: I appropr HEP to minimize future problems Goal Time Frame: 4-6 Weeks Goal 3:: Pt feel 75% better balance and get around Goal Time Frame: 4-6 Weeks - Rehabilitation Potential Physical Therapy Diagnosis: debility Rehabilitation Potential: Fair - Anticipated Interventions Patient/Client Instruction: Educate patient on: Condition, Plan of Care For the Purpose of:: To improve balance, To improve safety Therapeutic Exercise to Include: Strength training, Balance training, Flexibilty training, Gait and locomotor training For the Purpose of:: To improve muscle performance and motor function, To improve ability of physical actions for home/community/work/leisure, To improve gait and locomotor functions Thank you for the opportunity to evaluate your patient. For Medicare and Medicare HMO plans, please review the plan of care and approve it. It will need to be FAXED BACK to us at [phone] for Medicare purposes. For Medicare only, by signing this I certify the plan of care. Please let me know if there are questions or concerns regarding this plan of care. Physician Signature: Date:
--- NOTE | 2019-04-21 13:55 | HP.PTREVAL_ITS ---
Jackie Clark, OPTOMECHANICAL ENGINEER-C, It has been my pleasure to treat SABINE ORNELAS over the last 6 visits for debility CVA. Please see the progress note below for an update on the physical therapy plan of care! Subjective: Balance still seems off. Works out at hospital. Takes an hour to get loosened up in the morning. Using cane carrying it all the time. Has walker at home to get to the bedroom. Still feels like balance needs worked on for safety and not doing any home balance ex but continues to do band /LE strength exercises. Objective/Function: Walking slow with wide ABDIEL without AD. Narrower with cane btu still slow adn mildly hesitant. Trasnfer out of chair without UE. Steps are recirpocal with rail. Overall more confident adn slightly improved but still could get better. Plan Plan: 3x/week for 2-3 weeks for: balance and gait emphasizing narrow ABDIEL, vestibular/head movements and function adn progression to HEP to compliment his current strength program. Same goals and fair prognosis. Goals Goal 1:: FGA to for safety Goal Time Frame: 4-6 Weeks Goal Progress: ? Goal 2:: I appropr HEP to minimize future problems Goal Time Frame: 4-6 Weeks Goal Progress: Not Progressing Goal 3:: Pt feel 75% better balance and get around Goal Time Frame: 4-6 Weeks Goal Progress: slow Anticipated Interventions Patient/Client Instruction: Educate patient on: Condition, Plan of Care For the Purpose of:: To improve balance, To improve safety Therapeutic Exercise to Include: Strength training, Balance training, Flexibilty training, Gait and locomotor training For the Purpose of:: To improve muscle performance and motor function, To improve ability of physical actions for home/community/work/leisure, To improve gait and locomotor functions Please do not hesitate to contact me at [phone] by phone or if you have questions or concerns regarding this new plan of care! Sincerely, Ori Perez, DPT, OCS, CSCS
--- NOTE | 2019-05-05 14:02 | HP.PTDCSUM_ITS ---
HP - PT D/C Summary It has been my pleasure to treat SABINE ORNELAS under orders from Jackie Clark, NEPTALIC, for the diagnosis of debility CVA for a total of 12 visit(s). Discharge Date: 05/05/19 Please see the following information for a summary of their discharge status. - Subjective Subjective: Doing OK, no pain. No balance problems or falls lately. Pt feels like he is getting better. Has cane but doesn't use it alot, keeps it with him. - Overall Improvement % Improvement: 50 - Objective Objective/Function: FGA is +4 overall and doing well. Walking with narrower ABDIEL adn safe adn I withotu cane on firm flat surface. trasnfers without UE. Steps recip ascending without rail, needs rail to descend safely. - Goals Goal 1:: FGA to for safety Goal Progress: Goal Met Goal 2:: I appropr HEP to minimize future problems Goal Progress: gym Goal 3:: Pt feel 75% better balance and get around Goal Progress: Progressing - Plan Plan: d/c to continue via HEP or join [facility]. - D/C Information If there are questions or concerns regarding this patient's physical therapy, please feel free to call me at [phone]. Thank you for the referral of this patient. Sincerely, Ori Perez, DPT, OCS, CSCS
== END 2019-05-05 19:00 | disposition home or self-care (01) ==
LOC: PT 13:30
PROVIDERS: Family Provider Family Medicine Geriatric Medicine; PCP Family Medicine Geriatric Medicine; Referring Provider Nurse Practitioner Adult Health; Visit Provider Nurse Practitioner Adult Health
DX: R53.81 Other malaise (principal); Z86.73 Personal history of transient ischemic attack (TIA), and cerebral infarction without residual deficits
CPT/HCPCS: 97110; 97116; 97162; 97530

== ENCOUNTER → 2019-06-12 13:49 | Outpatient (CLI) | payer MEDICARE, SELFPAY ==
[2019-06-12 17:39] LABS: Absolute Lymphocyte Count 2.53 X10^3/uL (0.83-4.51); Absolute Neutrophil Count 5.7 X10^3/uL (2.0-7.7); Eosinophil# 0.27 X10^3/uL; Eosinophils% 2.8 % (0-5); Hematocrit 39.3 % (40-54); Hemoglobin 12.4 g/dL (13.0-16.5); Lymphocyte # 2.53 X10^3/ul (4.0); Lymphocyte % 26.3 % (19-41); Mean Corp Hgb Conc 31.6 g/dL (32-36); Mean Corpuscular Hgb 27.9 pg (27.0-32.0); Mean Corpuscular Volume 88.5 fL (80-94); Mean Platelet Vol. 11.2 fl (6.2-12.0); Monocyte# 0.98 X10^3/uL; Monocyte% 10.2 % (0-10); NRBC Flagged by Analyzer 0 % (0-5); Neutrophil # 5.72 X10^3/uL (2.7-7.7); Neutrophil % 59.4 % (47-70); Platelet Count 216 K/mm3 (150-450); RBC Distribution Width CV 14.6 % (11.6-14.6); RBC Distribution Width SD 47.6 fl (35.1-43.9); Red Blood Count 4.44 M/mm3 (4.6-6.2); White Blood Count 9.6 K/mm3 (4.4-11.0)
[2019-06-12 18:03] LABS: ALB/GLOB Ratio 1.1 RATIO (0.9-2.4); AST(SGOT) 12 U/L (15-37); Alanine Aminotransfer ALT/SGPT 20 U/L (16-61); Albumin, Serum 3.4 g/dL (3.2-5.0); Alkaline Phosphatase 87 U/L (45-117); Anion Gap 6 (5-15); BUN 17 mg/dL (7-18); Calcium,Total 8.3 mg/dL (8.5-10.1); Chloride 107 mmol/L (98-107); EST Glomerular Filtration Rate 76 mL/min (>60); Est Glom Filt Rate - Afr Amer 92 mL/min (>60); Glucose 127 mg/dL (74-106); Protein, Total 6.4 g/dL (6.4-8.2); Sodium Level 142 mmol/L (136-145); Thyroid Stim Hormone (TSH) 2.82 uIU/mL (0.358-3.74)
== END ==
PROVIDERS: Family Provider Family Medicine Geriatric Medicine; PCP Family Medicine Geriatric Medicine; Visit Provider Family Medicine Geriatric Medicine
DX: E11.9 Type 2 diabetes mellitus without complications (principal); E55.9 Vitamin D deficiency, unspecified; I10 Essential (primary) hypertension
CPT/HCPCS: 36415; 80053; 82306; 84443; 85025

== ENCOUNTER → 2019-12-11 13:29 | Outpatient (CLI) | payer MEDICARE, SELFPAY ==
[2019-12-11 16:58] LABS: Absolute Lymphocyte Count 2.34 X10^3/uL (0.83-4.51); Absolute Neutrophil Count 5.2 X10^3/uL (2.0-7.7); Basophil# 0.09 X10^3/uL; Eosinophil# 0.12 X10^3/uL; Eosinophils% 1.4 % (0-5); Hematocrit 42.2 % (40-54); Hemoglobin 13.5 g/dL (13.0-16.5); Lymphocyte # 2.34 X10^3/ul (4.0); Lymphocyte % 26.8 % (19-41); Mean Corpuscular Volume 90.8 fL (80-94); Mean Platelet Vol. 11.3 fl (6.2-12.0); Monocyte# 0.91 X10^3/uL; Monocyte% 10.4 % (0-10); NRBC Flagged by Analyzer 0 % (0-5); Neutrophil # 5.24 X10^3/uL (2.7-7.7); Neutrophil % 60.1 % (47-70); Platelet Count 249 K/mm3 (150-450); RBC Distribution Width CV 14.1 % (11.6-14.6); RBC Distribution Width SD 47.1 fl (35.1-43.9); Red Blood Count 4.65 M/mm3 (4.6-6.2); White Blood Count 8.7 K/mm3 (4.4-11.0)
[2019-12-11 17:24] LABS: ALB/GLOB Ratio 0.9 RATIO (0.9-2.4); AST(SGOT) 13 U/L (15-37); Alanine Aminotransfer ALT/SGPT 22 U/L (16-61); Albumin, Serum 3.3 g/dL (3.2-5.0); Alkaline Phosphatase 87 U/L (45-117); Anion Gap 6 (5-15); BUN 21 mg/dL (7-18); BUN/Creat Ratio 18.1 RATIO (10-20); Calcium,Total 8.7 mg/dL (8.5-10.1); Chloride 106 mmol/L (98-107); Creatinine, Serum 1.16 mg/dL (0.70-1.30); EST Glomerular Filtration Rate 64 mL/min (>60); Est Glom Filt Rate - Afr Amer 78 mL/min (>60); Globulin 3.5 g/dL (2.2-4.2); Glucose 141 mg/dL (74-106); Potassium 4.3 mmol/L (3.5-5.1); Protein, Total 6.8 g/dL (6.4-8.2); Sodium Level 142 mmol/L (136-145)
[2019-12-11 17:57] LABS: Vitamin D,25 Hydroxy 17.8 ng/mL
== END ==
PROVIDERS: PCP Family Medicine Geriatric Medicine; Visit Provider Family Medicine Geriatric Medicine
DX: E11.9 Type 2 diabetes mellitus without complications (principal); E55.9 Vitamin D deficiency, unspecified; I10 Essential (primary) hypertension
CPT/HCPCS: 36415; 80053; 82306; 84443; 85025

== ENCOUNTER → 2020-06-17 13:18 | Outpatient (CLI) | payer MEDICARE, SELFPAY ==
[2020-06-17 16:38] LABS: AST(SGOT) 14 U/L (15-37); Alanine Aminotransfer ALT/SGPT 23 U/L (16-61); Albumin, Serum 3.4 g/dL (3.2-5.0); Alkaline Phosphatase 101 U/L (45-117); Anion Gap 7 (5-15); BUN 19 mg/dL (7-18); BUN/Creat Ratio 15.6 RATIO (10-20); Calcium,Total 8.9 mg/dL (8.5-10.1); Chloride 105 mmol/L (98-107); Creatinine, Serum 1.22 mg/dL (0.70-1.30); EST Glomerular Filtration Rate 61 mL/min (>60); Est Glom Filt Rate - Afr Amer 73 mL/min (>60); Globulin 3.4 g/dL (2.2-4.2); Glucose 186 mg/dL (74-106); Potassium 3.8 mmol/L (3.5-5.1); Protein, Total 6.8 g/dL (6.4-8.2); Sodium Level 140 mmol/L (136-145); Thyroid Stim Hormone (TSH) 3.04 uIU/mL (0.358-3.74)
[2020-06-17 16:40] LABS: Absolute Lymphocyte Count 2.08 X10^3/uL (0.83-4.51); Basophil# 0.08 X10^3/uL; Basophil% 0.9 % (0-1); Eosinophil# 0.14 X10^3/uL; Eosinophils% 1.5 % (0-5); Hematocrit 43.3 % (40-54); Lymphocyte # 2.08 X10^3/ul (4.0); Lymphocyte % 22.5 % (19-41); Mean Corp Hgb Conc 32.3 g/dL (32-36); Mean Corpuscular Hgb 28.7 pg (27.0-32.0); Mean Corpuscular Volume 88.9 fL (80-94); Mean Platelet Vol. 11.4 fl (6.2-12.0); Monocyte# 0.89 X10^3/uL; Monocyte% 9.6 % (0-10); NRBC Flagged by Analyzer 0 % (0-5); Neutrophil # 5.99 X10^3/uL (2.7-7.7); Platelet Count 265 K/mm3 (150-450); RBC Distribution Width CV 13.6 % (11.6-14.6); RBC Distribution Width SD 44.1 fl (35.1-43.9); Red Blood Count 4.87 M/mm3 (4.6-6.2); White Blood Count 9.2 K/mm3 (4.4-11.0)
== END ==
PROVIDERS: PCP Family Medicine Geriatric Medicine; Visit Provider Family Medicine Geriatric Medicine
DX: E11.9 Type 2 diabetes mellitus without complications (principal); E55.9 Vitamin D deficiency, unspecified; I10 Essential (primary) hypertension
CPT/HCPCS: 36415; 80053; 82306; 84443; 85025

== ENCOUNTER → 2020-09-16 13:13 | Outpatient (CLI) | payer MEDICARE, SELFPAY ==
[2020-09-16 15:23] LABS: Absolute Lymphocyte Count 2.19 X10^3/uL (0.83-4.51); Absolute Neutrophil Count 5.9 X10^3/uL (2.0-7.7); Basophil# 0.07 X10^3/uL; Basophil% 0.8 % (0-1); Eosinophil# 0.13 X10^3/uL; Eosinophils% 1.4 % (0-5); Hematocrit 41.8 % (40-54); Lymphocyte # 2.19 X10^3/ul (4.0); Lymphocyte % 23.6 % (19-41); Mean Corp Hgb Conc 31.1 g/dL (32-36); Mean Corpuscular Hgb 28.7 pg (27.0-32.0); Mean Corpuscular Volume 92.3 fL (80-94); Mean Platelet Vol. 11.3 fl (6.2-12.0); Monocyte# 0.98 X10^3/uL; Monocyte% 10.5 % (0-10); NRBC Flagged by Analyzer 0 % (0-5); Neutrophil # 5.86 X10^3/uL (2.7-7.7); Neutrophil % 63.1 % (47-70); Platelet Count 254 K/mm3 (150-450); RBC Distribution Width CV 13.4 % (11.6-14.6); RBC Distribution Width SD 45.6 fl (35.1-43.9); Red Blood Count 4.53 M/mm3 (4.6-6.2); White Blood Count 9.3 K/mm3 (4.4-11.0)
[2020-09-16 15:37] LABS: Vitamin D,25 Hydroxy 14.4 ng/mL
[2020-09-16 15:49] LABS: ALB/GLOB Ratio 1.1 RATIO (0.9-2.4); AST(SGOT) 5 U/L (15-37); Alanine Aminotransfer ALT/SGPT 18 U/L (16-61); Albumin, Serum 3.3 g/dL (3.2-5.0); Alkaline Phosphatase 102 U/L (45-117); Anion Gap 3 (5-15); BUN 15 mg/dL (7-18); Calcium,Total 8.4 mg/dL (8.5-10.1); Chloride 108 mmol/L (98-107); Creatinine, Serum 0.94 mg/dL (0.70-1.30); EST Glomerular Filtration Rate 82 mL/min (>60); Est Glom Filt Rate - Afr Amer 100 mL/min (>60); Globulin 3.1 g/dL (2.2-4.2); Glucose 202 mg/dL (74-106); Potassium 3.9 mmol/L (3.5-5.1); Protein, Total 6.4 g/dL (6.4-8.2); Sodium Level 143 mmol/L (136-145); Thyroid Stim Hormone (TSH) 1.64 uIU/mL (0.358-3.74)
== END ==
PROVIDERS: PCP Family Medicine Geriatric Medicine; Visit Provider Family Medicine Geriatric Medicine
DX: E11.9 Type 2 diabetes mellitus without complications (principal); E55.9 Vitamin D deficiency, unspecified; I10 Essential (primary) hypertension
CPT/HCPCS: 36415; 80053; 82306; 84443; 85025

== ENCOUNTER → 2020-12-12 14:52 | Outpatient (CLI) | payer MEDICARE, SELFPAY ==
[2020-12-12 17:28] LABS: Absolute Neutrophil Count 5.5 X10^3/uL (2.0-7.7); Basophil# 0.05 X10^3/uL; Basophil% 0.6 % (0-1); Eosinophil# 0.19 X10^3/uL; Eosinophils% 2.1 % (0-5); Hematocrit 41.5 % (40-54); Hemoglobin 13.4 g/dL (13.0-16.5); Lymphocyte % 23.8 % (19-41); Mean Corp Hgb Conc 32.3 g/dL (32-36); Mean Corpuscular Hgb 28.8 pg (27.0-32.0); Mean Corpuscular Volume 89.1 fL (80-94); Mean Platelet Vol. 10.8 fl (6.2-12.0); Monocyte# 0.91 X10^3/uL; Monocyte% 10.3 % (0-10); NRBC Flagged by Analyzer 0 % (0-5); Neutrophil # 5.54 X10^3/uL (2.7-7.7); Neutrophil % 62.6 % (47-70); Platelet Count 264 K/mm3 (150-450); RBC Distribution Width CV 13.7 % (11.6-14.6); RBC Distribution Width SD 44.5 fl (35.1-43.9); Red Blood Count 4.66 M/mm3 (4.6-6.2); White Blood Count 8.8 K/mm3 (4.4-11.0)
[2020-12-12 17:49] LABS: AST(SGOT) 11 U/L (15-37); Alanine Aminotransfer ALT/SGPT 23 U/L (16-61); Albumin, Serum 3.3 g/dL (3.2-5.0); Alkaline Phosphatase 107 U/L (45-117); Anion Gap 8 (5-15); BUN 13 mg/dL (7-18); Calcium,Total 8.7 mg/dL (8.5-10.1); Chloride 104 mmol/L (98-107); Creatinine, Serum 1.18 mg/dL (0.70-1.30); EST Glomerular Filtration Rate 63 mL/min (>60); Est Glom Filt Rate - Afr Amer 76 mL/min (>60); Globulin 3.3 g/dL (2.2-4.2); Glucose 189 mg/dL (74-106); Protein, Total 6.6 g/dL (6.4-8.2); Sodium Level 141 mmol/L (136-145); Thyroid Stim Hormone (TSH) 2.65 uIU/mL (0.358-3.74)
== END ==
PROVIDERS: PCP Family Medicine Geriatric Medicine; Visit Provider Family Medicine Geriatric Medicine
DX: E11.9 Type 2 diabetes mellitus without complications (principal); E55.9 Vitamin D deficiency, unspecified; I10 Essential (primary) hypertension
CPT/HCPCS: 36415; 80053; 82306; 84443; 85025

== ENCOUNTER → 2021-07-02 12:52 | Outpatient (CLI) | payer MEDICARE, SELFPAY ==
[2021-07-02 14:23] LABS: Absolute Lymphocyte Count 2.58 X10^3/uL (0.83-4.51); Absolute Neutrophil Count 6.2 X10^3/uL (2.0-7.7); Hematocrit 44.1 % (40-54); Hemoglobin 14.1 g/dL (13.0-16.5); Lymphocyte # 2.58 X10^3/ul (0.83-4.51); Mean Corpuscular Hgb 27.8 pg (27.0-32.0); Mean Platelet Vol. 10.3 fl (6.2-12.0); Monocyte# 1.23 X10^3/uL; Monocyte% 11.9 % (0-10); NRBC Flagged by Analyzer 0 % (0-5); Neutrophil # 6.24 X10^3/uL (2.7-7.7); Neutrophil % 60.6 % (47-70); Platelet Count 315 K/mm3 (150-450); RBC Distribution Width CV 14.4 % (11.6-14.6); RBC Distribution Width SD 45.8 fl (35.1-43.9); Red Blood Count 5.07 M/mm3 (4.6-6.2); White Blood Count 10.3 K/mm3 (4.4-11.0)
[2021-07-02 14:51] LABS: Vitamin D,25 Hydroxy 15.7 ng/mL
[2021-07-02 15:02] LABS: ALB/GLOB Ratio 0.9 RATIO (0.9-2.4); AST(SGOT) 13 U/L (15-37); Alanine Aminotransfer ALT/SGPT 18 U/L (16-61); Albumin, Serum 3.3 g/dL (3.2-5.0); Alkaline Phosphatase 128 U/L (45-117); Anion Gap 4 (5-15); BUN 11 mg/dL (7-18); BUN/Creat Ratio 9.7 RATIO (10-20); Calcium,Total 9.1 mg/dL (8.5-10.1); Chloride 106 mmol/L (98-107); Creatinine, Serum 1.13 mg/dL (0.70-1.30); EST Glomerular Filtration Rate 66 mL/min (>60); Est Glom Filt Rate - Afr Amer 80 mL/min (>60); Globulin 3.8 g/dL (2.2-4.2); Glucose 142 mg/dL (74-106); Protein, Total 7.1 g/dL (6.4-8.2); Sodium Level 140 mmol/L (136-145); Thyroid Stim Hormone (TSH) 3.38 uIU/mL (0.358-3.74)
== END ==
LOC: POLAB3 12:53 → LAB 13:56
PROVIDERS: PCP Family Medicine Geriatric Medicine; Referring Provider Family Medicine Geriatric Medicine; Visit Provider Family Medicine Geriatric Medicine
DX: E11.65 Type 2 diabetes mellitus with hyperglycemia (principal); E66.9 Obesity, unspecified; I10 Essential (primary) hypertension
CPT/HCPCS: 36415; 80053; 82306; 84443; 85025

== ENCOUNTER → 2022-01-01 | Outpatient (CLI) | payer MEDICARE, SELFPAY ==
[2022-01-01 16:15] LABS: Absolute Lymphocyte Count 1.98 X10^3/uL (0.83-4.51); Basophil# 0.09 X10^3/uL; Basophil% 0.9 % (0-1); Eosinophil# 0.09 X10^3/uL; Eosinophils% 0.9 % (0-5); Hematocrit 36.8 % (40-54); Hemoglobin 11.9 g/dL (13.0-16.5); Lymphocyte # 1.98 X10^3/ul (0.83-4.51); Lymphocyte % 19.4 % (19-41); Mean Corp Hgb Conc 32.3 g/dL (32-36); Mean Corpuscular Hgb 26.7 pg (27.0-32.0); Mean Corpuscular Volume 82.7 fL (80-94); Mean Platelet Vol. 10.6 fl (6.2-12.0); Monocyte# 0.99 X10^3/uL; Monocyte% 9.7 % (0-10); NRBC Flagged by Analyzer 0 % (0-5); Neutrophil # 7.02 X10^3/uL (2.7-7.7); Neutrophil % 68.6 % (47-70); Platelet Count 299 K/mm3 (150-450); RBC Distribution Width CV 14.7 % (11.6-14.6); RBC Distribution Width SD 44.4 fl (35.1-43.9); Red Blood Count 4.45 M/mm3 (4.6-6.2); White Blood Count 10.2 K/mm3 (4.4-11.0)
[2022-01-01 16:29] LABS: Vitamin D,25 Hydroxy 19.2 ng/mL
[2022-01-01 16:48] LABS: ALB/GLOB Ratio 0.8 RATIO (0.9-2.4); AST(SGOT) 16 U/L (15-37); Alanine Aminotransfer ALT/SGPT 11 U/L (16-61); Albumin, Serum 2.8 g/dL (3.2-5.0); Alkaline Phosphatase 135 U/L (45-117); Anion Gap 10 (5-15); BUN 17 mg/dL (7-18); BUN/Creat Ratio 15.9 RATIO (10-20); Calcium,Total 8.7 mg/dL (8.5-10.1); Chloride 105 mmol/L (98-107); Creatinine, Serum 1.07 mg/dL (0.70-1.30); EST Glomerular Filtration Rate 70 mL/min (>60); Est Glom Filt Rate - Afr Amer 85 mL/min (>60); Globulin 3.7 g/dL (2.2-4.2); Glucose 157 mg/dL (74-106); Potassium 4.2 mmol/L (3.5-5.1); Protein, Total 6.5 g/dL (6.4-8.2); Sodium Level 139 mmol/L (136-145); Thyroid Stim Hormone (TSH) 1.81 uIU/mL (0.358-3.74)
== END | disposition home or self-care (01) ==
LOC: POLAB3 12:52
PROVIDERS: PCP Family Medicine Geriatric Medicine; Visit Provider Family Medicine Geriatric Medicine
DX: I10 Essential (primary) hypertension (principal); E11.65 Type 2 diabetes mellitus with hyperglycemia; E55.9 Vitamin D deficiency, unspecified
CPT/HCPCS: 36415; 80053; 82306; 84443; 85025

== ENCOUNTER 2022-04-01 09:29 | Outpatient (CLI) | payer MEDICARE, SELFPAY ==
--- NOTE | 2022-04-01 11:53 | RAD_ITS ---
INDICATION: ABN WEIGHT LOSS EXAMINATION/TECHNIQUE: X-RAY - XR Chest 2 Views COMPARISON: 02/20/2019.. FINDINGS: LINES/DEVICES: None. LUNGS: Opacification visualized in the left upper lung field that was not seen on the prior study, on the lateral view there is opacification visualized in the anterior left upper lobe, mild prominence of the interstitial lung markings in the left upper lung field. The remainder of the left lung demonstrates unremarkable bronchovascular markings, the left costophrenic angle is clear. The right hemithorax demonstrates unremarkable aeration than unremarkable bronchovascular markings, no evidence of parenchymal masses in the right hemithorax. MEDIASTINUM AND CARDIOVASCULAR STRUCTURES: Cardiac silhouette is not enlarged. BONES AND SOFT TISSUES: No evidence of acute osseous abnormality. RAD/Chest PA and Lateral IMPRESSION: Opacification of the anterior superior left upper lobe would recommend a CT scan to evaluate for mass. Electronically Signed: Titi Christensen MD at 16:48 EDT ,
[2022-04-01 12:21] LABS: Absolute Lymphocyte Count 1.43 X10^3/uL (0.83-4.51); Basophil# 0.08 X10^3/uL; Basophil% 0.7 % (0-1); Eosinophils% 0.9 % (0-5); Lymphocyte # 1.43 X10^3/ul (0.83-4.51); Lymphocyte % 12.9 % (19-41); Mean Corp Hgb Conc 31.4 g/dL (32-36); Mean Corpuscular Volume 79.5 fL (80-94); Monocyte# 1.36 X10^3/uL; Monocyte% 12.3 % (0-10); NRBC Flagged by Analyzer 0 % (0-5); Neutrophil % 72.2 % (47-70); Platelet Count 336 K/mm3 (150-450); RBC Distribution Width SD 45.8 fl (35.1-43.9); White Blood Count 11.1 K/mm3 (4.4-11.0)
[2022-04-01 12:34] LABS: Vitamin D,25 Hydroxy 12.7 ng/mL
[2022-04-01 12:41] LABS: ALB/GLOB Ratio 0.6 RATIO (0.9-2.4); AST(SGOT) 22 U/L (15-37); Alanine Aminotransfer ALT/SGPT 13 U/L (16-61); Albumin, Serum 2.4 g/dL (3.2-5.0); Alkaline Phosphatase 150 U/L (45-117); Anion Gap 7 (5-15); BUN 14 mg/dL (7-18); BUN/Creat Ratio 14.8 RATIO (10-20); Calcium,Total 8.5 mg/dL (8.5-10.1); Chloride 105 mmol/L (98-107); Creatinine, Serum 0.95 mg/dL (0.70-1.30); EST Glomerular Filtration Rate 81 mL/min (>60); Est Glom Filt Rate - Afr Amer 98 mL/min (>60); Globulin 4.1 g/dL (2.2-4.2); Glucose 119 mg/dL (74-106); PSA,Total - Annual Screen 0.75 ng/mL (0.00-4.00); Potassium 4.1 mmol/L (3.5-5.1); Protein, Total 6.5 g/dL (6.4-8.2); Sodium Level 141 mmol/L (136-145); Thyroid Stim Hormone (TSH) 2.82 uIU/mL (0.358-3.74)
== END 2022-04-01 23:59 | disposition home or self-care (01) ==
PROVIDERS: PCP Family Medicine Geriatric Medicine; Visit Provider Family Medicine Geriatric Medicine
DX: I10 Essential (primary) hypertension (principal); E11.9 Type 2 diabetes mellitus without complications; E55.9 Vitamin D deficiency, unspecified; R63.4 Abnormal weight loss; Z12.5 Encounter for screening for malignant neoplasm of prostate
CPT/HCPCS: 36415; 71046; 80053; 82306; 84153; 84443; 85025; G0103

== ENCOUNTER 2022-04-24 21:34 | Inpatient (IN) | payer MEDICARE, SELFPAY ==
[2022-04-24 21:36] VITALS: BP 123/58; PULSE 88; RESP 14; TEMP 36.5; O2SAT 92; BMI 29.4
--- NOTE | 2022-04-24 22:42 | EKG12_ITS ---
Test Reason : WEAKNESS Blood Pressure : / mmHG Vent. Rate : 078 BPM Atrial Rate : 078 BPM P-R Int : 162 ms QRS Dur : 086 ms QT Int : 424 ms P-R-T Axes : 025 016 -18 degrees QTc Int : 483 ms Sinus rhythm with marked sinus arrhythmia Nonspecific ST abnormality Prolonged QT Abnormal ECG Confirmed by LISSETTE LOZANO, SONJA ([id number]), map editor GRACIE IBRAHIM ([id number]) on 04/27/2022 9:57:12 A M Referred By: ADRIANNA Confirmed By:TARI MCLAUGHLIN MD
--- NOTE | 2022-04-24 22:43 | EX.ED.DYSGE1 ---
HPI History of Present Illness Chief Complaint: Weakness Informant: patient and family Onset/Context/Timing Onset: Month(s) Context: Gradual Onset Timing: Continuous Quality: Weak Location: All over Current Severity: Severe Maximum Severity: Severe Worsened by: nothing Relieved by: nothing Associated Symptoms Associated Symptoms: weight loss, poor po intake Narrative Narrative: 82-year-old male who lives alone, has had debility and general decline over the last several months along with unintentional weight loss, suspected to be due to poor p.o. intake. He has been living alone, his son lives close by. He called his son mitch because he was unable to stand on his own which is the first night/day that has been the case. Recently, they visited to assisted living facilities for him, looking for placement. Now they anticipate he may need more than that. He has a history of laryngeal cancer, that was excised remotely about 4 years ago, he has had a tracheostomy with an implant ever since. He does occasionally cough, patient denies it being any worse lately although he coughed several times while in the room. [facility] Medical History (Updated 04/25/22 @ 00:[address] 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 Home Medications lisinopril 30 mg tablet (Zestril) 30 mg PO DAILY 03/11/16 [History Last Taken 02/19/19] metformin 500 mg tablet 500 mg PO DAILY 03/11/16 [History Last Taken 02/19/19] aspirin 81 mg chewable tablet 81 mg PO DAILY@0800 02/22/18 [History Last Taken 02/19/19] atorvastatin 80 mg tablet 40 mg PO QHS 02/22/18 [History Last Taken 02/19/19] tamsulosin 0.4 mg capsule 0.4 mg PO QHS 02/22/18 [History Last Taken 02/19/19] acetaminophen 325 mg tablet 650 mg PO Q6H PRN PRN Non-cardiac pain (mod-severe) 02/22/19 [Rx Last Taken Unknown] levothyroxine 112 mcg tablet 112 mcg PO DAILY 04/24/22 [History Last Taken Unknown] zolpidem 10 mg tablet 10 mg PO QHS 04/24/22 [History Last Taken Unknown] Allergy/AdvReac Type Severity Reaction Status Date / Time No Known Allergies Allergy Verified 04/24/22 21:56 Family History (Updated 04/24/22 @ 23:[address] Martha Dutton MD) Mother Heart disease Surgical History (Updated 04/24/22 @ 23:[address] Martha Dutton MD) S/P appendectomy Status post tracheostomy Social History (Updated 04/24/22 @ 23:[address] Martha Dutton MD) household members: none Smoking Status: Former smoker alcohol intake: never substance use type: does not use ROS ROS ED Constitutional Constitutional ED: Reports anorexia, fatigue, weakness and weight loss; Denies chills, fever(s) or lethargy Eyes Eyes: Denies change in vision or diplopia ENT ENT ED: Denies rhinorrhea or sore throat Cardiovascular Cardiovascular: Denies chest pain or palpitations Respiratory/Chest Respiratory/Chest: Reports cough; Denies dyspnea or sputum Gastrointestinal Gastrointestinal: Denies abdominal pain, diarrhea, nausea or vomiting Genitourinary Genitourinary ED: Reports decreased urination; Denies dysuria or hematuria Musculoskeletal Musculoskeletal: Denies back pain or neck pain Integumentary Denies abscess or rash Neurologic Neurologic: Denies headache(s), paresthesias or weakness Psychiatric Psychiatric: Denies anxiety or suicidal thoughts EXAM Physical Exam Const Vital Signs: 04/24/22 21:36 04/24/22 21:57 04/24/22 23:35 Temperature 97.7 F L Temperature Source Oral Pulse Rate 88 84 Respiratory Rate 14 18 Respiratory Effort Normal Non-Labored Respiratory Pattern Normal Blood Pressure 123/58 H 170/76 H Blood Pressure Mean 79 107 Pulse Ox 92 93 Oxygen Delivery Method Room Air Room Air 04/24/22 23:56 Temperature 98.0 F Temperature Source Temporal Pulse Rate 76 Respiratory Rate 18 Respiratory Effort Respiratory Pattern Blood Pressure 147/68 H Blood Pressure Mean 94 Pulse Ox 93 Oxygen Delivery Method Room Air Positive well nourished and well developed Constitutional Narrative: Generally weak, nonfocal neurologic exam, no distress. General Appearance ED: well developed and NAD HEENT Reports moist mucous membranes normocephalic and atraumatic Eyes PERRL and EOMs intact bilaterally Neck full ROM, no lymphadenopathy and supple Neck Narrative: Tracheostomy site benign, moving air without difficulty. No bleeding or signs of infection. Resp normal respiratory effort and clear to auscultation bilaterally Cardio regular rate, regular rhythm and no murmurs GI non-tender and non-distended Auscultation: normoactive bowel sounds Palpation: soft Back/Spine no CVA tenderness General Back: other FROM Extremity normal to inspection General Extremety ED: Negative for edema, pulses abnormal or tenderness General Extremity: Negative for edema or pulses abnormal Neuro oriented x3, CN's II-XII intact bilaterally and no sensory deficits noted Sensorium / Orientation: awake and alert Motor Exam: strength 5/5 throughout Skin no rashes or lesions noted and no wounds MDM MDM MDM Narrative Medical decision making narrative: This gentleman being very weak, infectious work-up, cardiac work-up, electrolytes, renal function, TSH all obtained. Nonfocal neurologic exam, do not think he needs CT of the head. His chest x-ray was done first, 1 view on my interpretation shows left upper lobe infiltrate versus mass. It just so happens this was seen on a chest x-ray that was done 3 weeks ago, the patient confirms this and it seems that the PCP ordered a CT to be done but he has not had that yet. We did that here, and unfortunately it shows a large mass in the left upper lobe along with what appears to be hepatic metastases, suggesting cancer. With his leukocytosis and cough, I am not able to completely rule out a postobstructive pneumonia and starting Rocephin and admitting him for the at least that reason. Discussed with hospitalist who is in agreement. Lab Data Attestation: I reviewed the patient's lab results. Labs: Laboratory Results - last 24 hr 04/24/22 04/24/22 22:50 22:50 WBC 17.4 H RBC 4.28 L Hgb 10.6 L Hct 33.4 L MCV 78.0 L MCH 24.8 L MCHC 31.7 L RDW Std Deviation 47.9 H RDW Coeff of Pippa 17.1 H Plt Count 257 MPV 10.0 Immature Gran % (Auto) 0.800 Neut % (Auto) 82.8 H Lymph % (Auto) 7.2 L Glasscock % (Auto) 8.6 Eos % (Auto) 0.1 Baso % (Auto) 0.5 Absolute Neuts (auto) 14.4 H Absolute Lymphs (auto) 1.25 Nucleated RBC % 0 Sodium 140 Potassium 3.3 L Chloride 105 Carbon Dioxide 28.0 Anion Gap 7 BUN 14 Creatinine 0.96 Estim Creat Clear Calc 65.89 Est GFR (MDRD) Af Amer 96 Est GFR (MDRD) Non-Af 79 BUN/Creatinine Ratio 14.5 Glucose 122 H Calcium 8.4 L Troponin I High Sens 14 TSH 6.00 H Radiography Diagnostic Testing: Clinical Impression(s) from Imaging Studies Chest X-Ray 04/24/22 22:50 IMPRESSION: Persistent left upper lobe density. CT should be considered. Electronically Signed: Ezra Fernandez DO at 23:11 EDT Reading Location ID and State: [facility] / [place] Tel [phone], Service support , Chest CT 04/24/22 23:42 IMPRESSION: There is a left upper lobe mass measures approximately 9.5 x 6.2 cm. There is mediastinal left hilar lymphadenopathy stone with metastatic lesions the largest measures approximately 2 cm in diameter. There is small pericardial effusion. Small bilateral pleural effusions. Multiple metastatic lesions are seen in the very largest measures approximately 8 x 7 cm. Electronically Signed: Francis Morgan MD at 0:02 EDT Reading Location ID and State: [facility] / [place] Tel , Service support , Rhythm Strip Rhythm Strip: Sinus Rhythm Rate: 80 Ectopy: None EKG Initial EKG: Attestation: I personally reviewed and interpreted this EKG as follows: Interpretation: Sinus Rhythm, No Acute Injury Pattern and Non-Specific ST Changes Prior EKG tracings: available for review Prior: Unchanged Discharge Plan Dx/Rx/DC Orders Clinical Impression: Generalized weakness, Declining functional status, Mass of upper lobe of left lung, Pneumonia, Metastases to the liver, Bilateral pleural effusion, Hypothyroid Disposition Disposition: Acute Care Hospital [facility]
--- NOTE | 2022-04-24 22:50 | RAD_ITS ---
STUDY: X-RAY CHEST REASON FOR EXAM: Male, 82 years old. Weakness. TECHNIQUE: Single AP portable view of the chest. COMPARISON: 04/01/2022. FINDINGS: Persistent density in the left upper lung. Lungs appear otherwise clear. There is no demonstrated pleural abnormality. Normal size heart. Normal mediastinum and kia. Normal visualized pulmonary arteries. There is atherosclerotic calcification of the aortic arch with tortuosity. There are diffuse degenerative changes of the visualized thoracic spine. There is degenerative osteoarthritis of the bilateral shoulders. There is no demonstrated abnormality of the visualized soft tissue structures of the upper abdomen. RAD/Chest 1 View (Portable) IMPRESSION: Persistent left upper lobe density. CT should be considered. Electronically Signed: Ezra Fernandez DO at 23:11 EDT ,
[2022-04-24 23:03] LABS: Absolute Lymphocyte Count 1.25 X10^3/uL (0.83-4.51); Absolute Neutrophil Count 14.4 X10^3/uL (2.0-7.7); Basophil# 0.08 X10^3/uL; Basophil% 0.5 % (0-1); Eosinophil# 0.02 X10^3/uL; Eosinophils% 0.1 % (0-5); Hematocrit 33.4 % (40-54); Hemoglobin 10.6 g/dL (13.0-16.5); Lymphocyte # 1.25 X10^3/ul (0.83-4.51); Lymphocyte % 7.2 % (19-41); Mean Corp Hgb Conc 31.7 g/dL (32-36); Mean Corpuscular Hgb 24.8 pg (27.0-32.0); Monocyte% 8.6 % (0-10); NRBC Flagged by Analyzer 0 % (0-5); Neutrophil # 14.39 X10^3/uL (2.7-7.7); Neutrophil % 82.8 % (47-70); Platelet Count 257 K/mm3 (150-450); RBC Distribution Width CV 17.1 % (11.6-14.6); RBC Distribution Width SD 47.9 fl (35.1-43.9); Red Blood Count 4.28 M/mm3 (4.6-6.2); White Blood Count 17.4 K/mm3 (4.4-11.0)
[2022-04-24] MEDS: 0.9% Normal Saline 1,000 ML 250 ML IV (23:15)
[2022-04-24 23:26] LABS: Anion Gap 7 (5-15); BUN 14 mg/dL (7-18); BUN/Creat Ratio 14.5 RATIO (10-20); Calcium,Total 8.4 mg/dL (8.5-10.1); Chloride 105 mmol/L (98-107); Creatinine, Serum 0.96 mg/dL (0.70-1.30); EST Glomerular Filtration Rate 79 mL/min (>60); Est Glom Filt Rate - Afr Amer 96 mL/min (>60); Estimated Creatinine Clearance 65.89 ml/min; Glucose 122 mg/dL (74-106); Potassium 3.3 mmol/L (3.5-5.1); Sodium Level 140 mmol/L (136-145); Troponin-I HS 14 pg/mL (3.0-78.0)
[2022-04-24 23:35] VITALS: BP 170/76; PULSE 84; RESP 18; O2SAT 93
--- NOTE | 2022-04-24 23:42 | CT_ITS ---
INDICATION: lung mass EXAMINATION: CT CHEST WITH CONTRAST - CT Chest W/ Contrast Injection TECHNIQUE: Helically acquired images were obtained of the chest following IV contrast. A radiation dose optimization technique was used for this scan. IV Contrast dosage and agent: COMPARISON: None. FINDINGS: LUNGS, PLEURA AND LARGE AIRWAYS: There is a left upper lobe mass measures approximately 9.5 x 6.2 cm. There is small pericardial effusion. Small bilateral pleural effusions. THYROID: No thyroid lesions. HEART AND PERICARDIUM: Heart size is normal. No pericardial effusion. VESSELS: Thoracic aorta is not dilated. No aortic dissection. No obvious central pulmonary embolism although this study was not performed with the pulmonary embolism protocol. MEDIASTINUM AND CHALINO: There is mediastinal left hilar lymphadenopathy stone with metastatic lesions the largest measures approximately 2 cm in diameter. Esophagus is unremarkable. No hiatal hernia. UPPER ABDOMEN: Multiple metastatic lesions are seen in the very largest measures approximately 8 x 7 cm. BONES: No suspicious lytic or blastic abnormality. CT/Chest WITH Contrast IMPRESSION: There is a left upper lobe mass measures approximately 9.5 x 6.2 cm. There is mediastinal left hilar lymphadenopathy stone with metastatic lesions the largest measures approximately 2 cm in diameter. There is small pericardial effusion. Small bilateral pleural effusions. Multiple metastatic lesions are seen in the very largest measures approximately 8 x 7 cm. Electronically Signed: Francis Morgan MD at 0:02 EDT ,
--- NOTE | 2022-04-24 23:50 | PCM.HP.STD ---
HPI - General General Date of Admission: 04/24/22 Date of Service: 04/24/22 Chief Complaint: Weakness, debility, worsening. 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, HTN, HLD, Hx Throat CA s/p surgical intervention as well as radiation/chemotherapy w/ prior trach/reversal, BPH, Diabetes mellitus type II, Hypothyroidism who presents to the [facility] ED on 04/24/22 with history of recent ongoing progressive decline with family decision to transition to assisted living which is been in process with family recently visiting several assisted living facilities; however, this evening son checked in on the patient and he was significantly debilitated, unable to actively take care of himself with notable debility and inability to ambulate well in his home prompting transition to the ED for evaluation. Family notes associated weight loss secondary to poor oral intake given inability to take care of himself and make food for himself. Family also notes occasional cough and denies worsening above baseline although per ED physician patient coughing frequently in the ED since arrival. Work-up in the ED included T 97.7, HR 88, BP 123/58, RR 14, 92% on RA, CBC with WBC 17.4, hemoglobin 10.6, MCV 78, platelet 257 with left shift, BMP with potassium 3.3, glucose 122, calcium 8.4 otherwise not marked, troponin 14, TSH six-point, chest X with persistent left upper lobe density. From review of prior records 04/01/2022 chest x-ray with opacification of the anterior superior left upper lobe not noted on 02/20/2019 plain film, urinalysis pending upon requested evaluation of patient, CT chest with contrast pending upon requested evaluation of patient, EKG with SR with nonspecific ST-T changes without acute evidence of ischemia. In the ED patient ministered normal saline. [facility] Medical History (Updated 04/25/22 @ 00:[address] 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 Home Medications lisinopril 30 mg tablet (Zestril) 30 mg PO DAILY 03/11/16 [History Last Taken 02/19/19] metformin 500 mg tablet 500 mg PO DAILY 03/11/16 [History Last Taken 02/19/19] aspirin 81 mg chewable tablet 81 mg PO DAILY@0800 02/22/18 [History Last Taken 02/19/19] atorvastatin 80 mg tablet 40 mg PO QHS 02/22/18 [History Last Taken 02/19/19] tamsulosin 0.4 mg capsule 0.4 mg PO QHS 02/22/18 [History Last Taken 02/19/19] acetaminophen 325 mg tablet 650 mg PO Q6H PRN PRN Non-cardiac pain (mod-severe) 02/22/19 [Rx Last Taken Unknown] levothyroxine 112 mcg tablet 112 mcg PO DAILY 04/24/22 [History Last Taken Unknown] zolpidem 10 mg tablet 10 mg PO QHS 04/24/22 [History Last Taken Unknown] Allergy/AdvReac Type Severity Reaction Status Date / Time No Known Allergies Allergy Verified 04/24/22 21:56 Family History (Updated 04/24/22 @ 23:[address] Martha Dutton MD) Mother Heart disease Family History other other (Denies any marked paternal family history including HD, DM, CA.) Surgical History (Updated 04/24/22 @ 23:[address] Martha Dutton MD) S/P appendectomy Status post tracheostomy Social History (Updated 04/24/22 @ 23:[address] Martha Dutton MD) household members: none Smoking Status: Former smoker alcohol intake: never substance use type: does not use ROS ROS Narrative Admission Review of Systems: CONSTITUTIONAL: No fever, chills, + weight loss, weakness or fatigue. HEENT: + Chronic R sided facial droop, s/p trach w/ stoma. Eyes: No visual loss, blurred vision, double vision or yellow sclerae. Ears, Nose, Throat: No hearing loss, sneezing, congestion, runny nose or sore throat. SKIN: + Very staged occasional ecchymoses, abrasions. CARDIOVASCULAR: + BL LE edema. No chest pain, chest pressure or chest discomfort, palpitations, lightheadedness, orthopnea, syncopal events. RESPIRATORY: + Cough without marked sputum production, denies notable shortness of breath, wheezing, hemoptysis. GASTROINTESTINAL: + anorexia, No nausea, vomiting or diarrhea, abdominal pain, melena, BRBPR. GENITOURINARY: No dysuria, frequency, urgency or retention. NEUROLOGICAL: + Chronic R sided hemiplegia. No No headache, dizziness, syncope, change in bowel or bladder control, seizure. MUSCULOSKELETAL: + muscle, back pain, joint pain or stiffness. HEMATOLOGIC: + anemia, bleeding or bruising. LYMPHATICS: No enlarged nodes. No history of splenectomy. PSYCHIATRIC: No history of depression or anxiety. ENDOCRINOLOGIC: No reports of sweating, cold or heat intolerance. No polyuria or polydipsia. ALLERGIES: No history of asthma, hives, eczema or rhinitis. Vital Signs Vital Signs Vital Signs: 04/24/22 21:36 04/24/22 21:57 04/24/22 23:35 Temperature 97.7 F L Temperature Source Oral Pulse Rate 88 84 Respiratory Rate 14 18 Respiratory Effort Normal Non-Labored Respiratory Pattern Normal Blood Pressure 123/58 H 170/76 H Blood Pressure Mean 79 107 Pulse Ox 92 93 Oxygen Delivery Method Room Air Room Air Weight Weight: 223 lb 1.725 oz Body Mass Index (BMI) 29.4 Physical Exam Narrative Physical Examination: General: Awake, alert, oriented x 3 and cooperative, seated upright in the ED bed, has stoma, voice accordingly altered. Skin: Normal color, normal turgor, no icterus, no cyanosis except various staged ecchymoses. HEENT: AT/NC, EOMI, PERRLA, mildly dry MM, status post prior tracheostomy with stoma, no carotid bruits or JVD noted. Lungs: Significantly diffusely diminished, greater bases, very minimal rales bilaterally, appropriate effort, no evidence of distress, no rhonchi or wheezing. Heart: Regular rate and rhythm; no gallop, rub audible. Abdomen: Soft, NTTP, ND, mildly hyperactive BS, no HSM. Extremities: No cyanosis, no clubbing, bilateral pedal to mid lopez edema. Neurological: Patient awake, alert, oriented as noted, cognitive function appears based intact; pupils equally reactive to light and accommodation, cranial nerves grossly normal except for evidence of prior stroke with right-sided hemiplegia, right facial droop, compounded by acute presentation strength moderately to severely global decreased. Psychiatric: Affect appears fatigued, flat, no acute evidence of depressive or anxiety feelings. Results Lab / Micro Data Result Diagrams: 04/24/22 22:50 04/24/22 22:50 Labs: Laboratory Results - last 24 hr 04/24/22 22:50: WBC 17.4 H, RBC 4.28 L, Hgb 10.6 L, Hct 33.4 L, MCV 78.0 L, MCH 24.8 L, MCHC 31.7 L, RDW Std Deviation 47.9 H, RDW Coeff of Pippa 17.1 H, Plt Count 257, MPV 10.0, Immature Gran % (Auto) 0.800, Neut % (Auto) 82.8 H, Lymph % (Auto) 7.2 L, Harmon % (Auto) 8.6, Eos % (Auto) 0.1, Baso % (Auto) 0.5, Absolute Neuts (auto) 14.4 H, Absolute Lymphs (auto) 1.25, Nucleated RBC % 0 04/24/22 22:50: Sodium 140, Potassium 3.3 L, Chloride 105, Carbon Dioxide 28.0, Anion Gap 7, BUN 14, Creatinine 0.96, Estim Creat Clear Calc 65.89, Est GFR (MDRD) Af Amer 96, Est GFR (MDRD) Non-Af 79, BUN/Creatinine Ratio 14.5, Glucose 122 H, Calcium 8.4 L, Troponin I High Sens 14, TSH 6.00 H Rhythm Strip Rhythm Strip: Sinus Rhythm Rate: 80 Ectopy: None Radiology Impression Chest X-Ray 04/24/22 22:50 IMPRESSION: Persistent left upper lobe density. CT should be considered. 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, HTN, HLD, Hx Throat CA s/p surgical intervention as well as radiation/chemotherapy w/ prior trach/reversal, BPH, Diabetes mellitus type II, Hypothyroidism who presents to the [facility] ED on 04/24/22 with history of recent ongoing progressive decline with family decision to transition to assisted living which is been in process with family recently visiting several assisted living facilities; however, this evening son checked in on the patient and he was significantly debilitated, unable to actively take care of himself with notable debility and inability to ambulate well in his home prompting transition to the ED for evaluation. #1. Persistent left upper lobe density, concerning for mass without ability to exclude concurrent possible pneumonia with concern for possible concurrent aspiration given #4: Will admit to medical surgical floor, maintain on oxygen with wean as tolerated to room air, PRN albuterol, maintained on IV Zosyn to be cautious given aspiration history with pending MRSA screen and adjustment of medications as needed and de-escalation if further imaging/labs are not concerning for underlying pneumonia, CT chest with contrast pending upon requested evaluation, HOB, IS parameters w/ pending sputum cultures, respiratory viral panel and urine antigens as well as procalcitonin level. Bld cx x 2 obtained in the ED. Speech consulted given history. #2. Hypokalemia: Admission K+ 3.3, magnesium level requested, supplementation given, repeat level in AM. #3. Failure to thrive, adult: Likely contributed to by #1 as noted, pending CT chest with suspected mass, possible concurrent PNA with notable decline and family had been intending on transitioning patient to assisted living given worsening ability to appropriately maintain oral intake and complete his basic ADL, will maintain on fall and aspiration precautions, PT/OT/case management consultation for discharge planning for potentially assisted living versus skilled pending their opinion upon assessment. #4. Carotid disease: 03/12/16 carotid US w/ severe irregular plaque at the proximal right ICA with greater than 70% stenosis, significant disease right external carotid, occluded right vertebral, moderate regular plaque at the proximal left internal carotid with greater than 70% stenosis, significant disease left external carotid, markedly increased velocities of the left vertebral consistent with significant stenosis. Patient previously evaluated vascular and deferred any interventions at that time. Continue aspirin, statin, hypertensive regimen. #5. 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 Continue aspirin, statin, hypertensive regimen. #6. History of throat/esophageal cancer: s/p excision ~ 4 years prior, status post radiation and chemotherapy, history of tracheostomy status post eventual removal w/ stoma, maintain on aspiration precautions. #7. Chronic Insomnia: Patient uses chronic ambien outpatient. Not ideal given advanced age and R sided deficits as certainly high fall risk. Will trial q HS trazodone instead. #8. Diabetes mellitus type II: Hold oral home regimen, ADA diet, accu checks w/ ISS. #9. Chronic anemia, microcytic: Admission hgb 10.6, prior hemoglobin range 11, from review has trended down since 2020, also MCV decreased, will obtain Fe panel, ferritin, guiac to be cautious as certainly could be contributing to patient's progressive decline. #10. Hypothyroidism with elevated TSH: Continue home levothyroxine regimen. TSH 6.0, free T4 pending. #11. Hypertension: Will continue home lisinopril regimen, PRN IV hydralazine. #12. Hyperlipidemia: Continue home statin therapy. #13. CKD stage II unclear subtype: Admission BUN/Cr 14/0.96, prior baseline creatinine noted to be 0.9-1.1 primarily, will continue to trend. #14. Former tobacco use: Encourage continued tobacco cessation. #15. DVT prophylaxis: SCDs, lovenox cautiously given #9 as noted. #16. CODE status: Patient CELIA is his son and living will is currently in place. Discussed CODE status at length including difference between FULL code, DNR-CCA and DNR-CC status. Following discussions about the differences in these status, requested DNR-CCA, no intubation status. Advanced Care Planning Face to Face Time: 16 minutes. Charges/Coding Visit Charges Inpatient E&M: 28915 Init Hosp L3 Procedures Hospitalists Procedures: 86446 Advncd Care Plan 30 Min
[2022-04-24 23:56] VITALS: BP 147/68; PULSE 76; RESP 18; TEMP 36.7; O2SAT 93
[2022-04-25] VITALS (7 sets, daily range): BP systolic 113–157; BP diastolic 46–84; PULSE 83–97; RESP 15–18; TEMP 36.2–37.6; O2SAT 92–96; BMI 28.6
[2022-04-25] MEDS: Ceftriaxone 1 GM/50 ML BAG IV (00:09)
[2022-04-25 00:29] LABS: AST(SGOT) 25 U/L (15-37); Alanine Aminotransfer ALT/SGPT 10 U/L (16-61); Albumin, Serum 2.2 g/dL (3.2-5.0); Alkaline Phosphatase 130 U/L (45-117); Bilirubin, Direct 0.32 mg/dL (0.00-0.30); Ferritin 239 ng/mL (26-388); Globulin 3.8 g/dL (2.2-4.2); Iron 12 ug/dL (65-175); Iron Binding Capacity,Total 131 ug/dL (250-450); Magnesium 1.9 mg/dL (1.6-2.6); PERCENT IRON SATURATION 9.2 % (15.0-55.0)
[2022-04-25 01:07] LABS: Procalcitonin 0.44 ng/mL (0.00-0.09)
--- NOTE | 2022-04-25 01:13 | CPS ---
PATIENT HAS STOMA AND IS UNABLE TO PERFORM INCENTIVE.
[2022-04-25] MEDS: 0.9% Normal Saline 1,000 ML 100 ML IV (01:31)
[2022-04-25] MEDS: Potassium Chloride Oral Tablet 20 MEQ 40 MEQ PO (01:31)
[2022-04-25] MEDS: traZODone 50 MG Tablet PO ×2 (01:47→20:34)
[2022-04-25] MEDS: Levothyroxine 112 MCG Tablet PO (06:05)
[2022-04-25 06:18] LABS: Mucous, Urine 0 SEEN /hpf (<or=2+); Red Blood Cells-Urine 0 SEEN /hpf (0-5); Squamous Epithelial Cells - UA 0 SEEN /hpf (0-5)
[2022-04-25 06:20] LABS: Color, Urine Yellow (Yellow); Glucose, Dipstick Normal (Normal); Ketone-Dipstick 15 mg/dl (Negative); Leukocyte Esterase-Dipstick 500 /ul (Negative); Nitrite-Dipstick Negative (Negative); Occult Blood-Urine 10 /ul (Negative); Protein-Dipstick 30 mg/dl (Negative); Specific Gravity, Urine 1.015 (1.002-1.030); Urine Bilirubin Dipstick Negative (Negative); Urine Clarity Clear (Clear); Urine Urobilinogen 1 mg/dl (Normal)
[2022-04-25 06:25] LABS: White Blood Cells 5-10 SEEN /hpf (0-5)
[2022-04-25 06:26] LABS: Bacteria RARE /hpf (None Seen)
[2022-04-25 06:29] LABS: Absolute Neutrophil Count 11.7 X10^3/uL (2.0-7.7); Basophil# 0.09 X10^3/uL; Basophil% 0.6 % (0-1); Eosinophil# 0.07 X10^3/uL; Eosinophils% 0.4 % (0-5); Hematocrit 32.4 % (40-54); Hemoglobin 10.4 g/dL (13.0-16.5); Lymphocyte % 11.6 % (19-41); Mean Corp Hgb Conc 32.1 g/dL (32-36); Mean Corpuscular Hgb 24.9 pg (27.0-32.0); Mean Corpuscular Volume 77.7 fL (80-94); Mean Platelet Vol. 10.2 fl (6.2-12.0); Monocyte# 1.76 X10^3/uL; Monocyte% 11.3 % (0-10); NRBC Flagged by Analyzer 0 % (0-5); Neutrophil # 11.73 X10^3/uL (2.7-7.7); Neutrophil % 75.4 % (47-70); POSITIVE DIFFERENTIAL YES; Platelet Count 234 K/mm3 (150-450); RBC Distribution Width CV 17.1 % (11.6-14.6); RBC Distribution Width SD 47.9 fl (35.1-43.9); Red Blood Count 4.17 M/mm3 (4.6-6.2); White Blood Count 15.6 K/mm3 (4.4-11.0)
[2022-04-25 06:54] LABS: Differential Indicated SCAN CRITERIA MET
[2022-04-25 07:10] LABS: Bedside Glucose 104 mg/dL (74-106)
[2022-04-25 07:11] LABS: ALB/GLOB Ratio 0.6 RATIO (0.9-2.4); AST(SGOT) 24 U/L (15-37); Alanine Aminotransfer ALT/SGPT 10 U/L (16-61); Alkaline Phosphatase 121 U/L (45-117); Anion Gap 8 (5-15); BUN 13 mg/dL (7-18); BUN/Creat Ratio 14.1 RATIO (10-20); Chloride 104 mmol/L (98-107); Creatinine, Serum 0.92 mg/dL (0.70-1.30); EST Glomerular Filtration Rate 83 mL/min (>60); Est Glom Filt Rate - Afr Amer 101 mL/min (>60); Estimated Creatinine Clearance 68.75 ml/min; Globulin 3.6 g/dL (2.2-4.2); Glucose 94 mg/dL (74-106); Potassium 3.5 mmol/L (3.5-5.1); Protein, Total 5.6 g/dL (6.4-8.2); Sodium Level 141 mmol/L (136-145); T4 Free Direct 1.07 ng/dL (0.76-1.46)
[2022-04-25 07:15] LABS: Differential Comment SCANNED; Smudge Cells RARE
[2022-04-25] MEDS: Aspirin 81 MG TAB.CHEW PO (08:28)
[2022-04-25] MEDS: Pantoprazole Sodium 20 MG Tablet PO ×2 (08:28→20:34)
[2022-04-25] MEDS: NYSTATIN 500,000 UNIT/5 ML UDC 500000 UNIT PO ×4 (08:28→20:34)
[2022-04-25] MEDS: Lisinopril 10 MG Tablet 30 MG PO (08:28)
[2022-04-25] MEDS: Glucerna Shake 120 ML LIQUID PO ×4 (08:34→20:34)
--- NOTE | 2022-04-25 09:26 | CON.PCM.CC_ITS ---
Assessment & Plan Assessment/Plan (1) Mass of upper lobe of left lung: (2) Bilateral pleural effusion: PLAN: Plan RECOMMENDATIONS: 1. Discontinue Lovenox and echocardiogram 2. Discussed with case management about goals of therapy 3. Change CODE STATUS to DNR Comfort Care 4. Potential hospice versus palliative care once symptoms develop 5. Could consider empiric antibiotics for postobstructive pneumonia IMPRESSIONS: 1. Large left hilar mass, highly suspicious for malignancy Patient with large hilar mass with associated lymphadenopathy and other lesions highly concerning for advanced stage cancer. Clinical suspicion for squamous versus small cell, but after review the risks, benefits and alternatives, patient has stated that he does not want any bronchoscopy or further work-up. Patient states that he believes that it probably is cancer. Patient does not believe that he is having any significant symptoms at this time, but is concerned that he will develop these with progression of disease. Patient is asking to only have comfort measures without further diagnostic work- up. 2. Possible postobstructive pneumonia Patient is not reporting any productive cough, but does have significant consolidation in the left upper lobe. Clinical suspicion for post obstruction, infection would be suggested by elevated white blood cell count. Reasonable to try a 5-day course of antibiotics, but doubt patient will have significant long- term change in prognosis with treatment. 3. Failure to thrive/carotid disease/history of CVA/history of laryngeal cancer/diabetes mellitus/chronic anemia/hypertension/hyperlipidemia/CKD stage II Complicates care, management, recovery and prognosis. Okay to continue with current medications. Patient is refusing Lovenox as he does not want to be stuck. This is likely reasonable given goals of therapy. We will change CODE STATUS to DNR Comfort Care. Did discuss with the patient for 16 minutes on current status, suspected diagnosis and potential prognosis. Patient would likely qualify for hospice given advanced age high suspicion of malignancy in my opinion, but does not currently have symptoms requiring aggressive control. HPI Consult Data Date of Consult: 04/25/22 HPI Narrative Reason for Consultation: Lung mass HPI Narrative: SABINE ORNELAS is an 82 M, with past medical history listed below, who presents to [facility] on 04/24/2022 secondary to progressive weakness from his family and poor p.o. intake. Patient reportedly has had general decline over the last couple of months with unintentional weight loss and poor p.o. intake. Patient has been living alone, but has a son that lives nearby. Patient reportedly was unable to stand, so was brought in for evaluation. Patient does have a history significant for laryngeal cancer with laryngectomy 4 years ago. Patient has not reported any increase in cough, fever, chills, nausea or vomiting. No aspiration has been reported. In the ER, patient was afebrile, normotensive and saturating well on room air. Laboratory work-up showed a white blood cell count of 17.4, hemoglobin of 10.6 and a potassium of 3.3. Renal function was within normal limits. TSH was slightly elevated. A chest x-ray showed a persistent left upper lobe density an d a CT scan subsequently showed a 9 x 5 x 6.2 cm mass in the left upper lobe along with left hilar adenopathy and multiple metastatic lesions. Patient was admitted to the hospital and pulmonary was consulted for prognostication of lung mass. Patient overall felt subjectively slightly improved compared to previous. Patient is still reporting significant weakness with standing. Patient states that he has not had any other symptoms other than decreased appetite, weight loss and progressive weakness. Patient states he has no admission of being aggressive with any potential cancer. Patient states that he has outlived all of my friends already. Patient does not believe that he is having any symptoms that are overly bothersome, but is afraid that these will develop with progression of the suspected cancer. Review of systems otherwise negative from a constitutional, HEENT, respiratory, cardiovascular, GI, genitourinary, musculoskeletal, skin, neurologic, psychiatric and hematologic system unless stated above. [facility] Medical History BPH (benign prostatic hyperplasia) Carotid disease, bilateral CKD (chronic kidney disease), stage II Diabetes mellitus History of throat cancer HLD (hyperlipidemia) Hypertension Hypothyroid Occlusion of right vertebral artery 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 Home Medications lisinopril 30 mg tablet (Zestril) 30 mg PO DAILY 03/11/16 [History Last Taken 02/19/19] metformin 500 mg tablet 500 mg PO DAILY 03/11/16 [History Last Taken 02/19/19] aspirin 81 mg chewable tablet 81 mg PO DAILY@0800 02/22/18 [History Last Taken 02/19/19] atorvastatin 80 mg tablet 40 mg PO QHS 02/22/18 [History Last Taken 02/19/19] tamsulosin 0.4 mg capsule 0.4 mg PO QHS 02/22/18 [History Last Taken 02/19/19] acetaminophen 325 mg tablet 650 mg PO Q6H PRN PRN Non-cardiac pain (mod-severe) 02/22/19 [Rx Last Taken Unknown] levothyroxine 112 mcg tablet 112 mcg PO DAILY 04/24/22 [History Last Taken Unknown] zolpidem 10 mg tablet 10 mg PO QHS 04/24/22 [History Last Taken Unknown] Allergy/AdvReac Type Severity Reaction Status Date / Time No Known Allergies Allergy Verified 04/25/22 00:52 Family History Mother Heart disease Family History other Surgical History Status post tracheostomy Social History household members: none Smoking Status: Former smoker alcohol intake: never substance use type: does not use ROS ROS Narrative See HPI Physical Exam Const alert, oriented x3 and no apparent distress General Appearance: cooperative, well developed and frail; Negative for ill appearing HEENT normocephalic, head/scalp atraumatic and moist oral mucous membranes Eyes PERRL and EOMs intact bilaterally Neck full ROM and no lymphadenopathy Neck Narrative: Laryngectomy noted. No purulent exudate noted or surrounding erythema Chest inspection of chest normal Resp normal respiratory effort and no use of accessory muscles Auscultation: rhonchi left lower and diminished lung sounds left upper; Negative for rales or wheezes Percussion: Negative for dullness Cardio regular rate, regular rhythm, S1 normal heart sound, S2 normal heart sound, no murmurs, no rub and no gallops GI normal to inspection, nondistended, normoactive bowel sounds no CVA tenderness Extremity no clubbing, cyanosis or edema Skin no rashes or lesions noted Neuro oriented x3, CN's II-XII intact bilaterally and moves all extremities Neuro Narrative: Weakness of bilateral lower extremities Psych cooperative and affect normal Lab / Micro Data Attestation: I reviewed the patient's lab results. Lab results narrative: All images were also personally reviewed Result Diagrams: 04/25/22 05:25 04/25/22 05:25 Labs: Laboratory Results - last 24 hr 04/24/22 22:50: WBC 17.4 H, RBC 4.28 L, Hgb 10.6 L, Hct 33.4 L, MCV 78.0 L, MCH 24.8 L, MCHC 31.7 L, RDW Std Deviation 47.9 H, RDW Coeff of Pippa 17.1 H, Plt Count 257, MPV 10.0, Immature Gran % (Auto) 0.800, Neut % (Auto) 82.8 H, Lymph % (Auto) 7.2 L, Irwin % (Auto) 8.6, Eos % (Auto) 0.1, Baso % (Auto) 0.5, Absolute Neuts (auto) 14.4 H, Absolute Lymphs (auto) 1.25, Nucleated RBC % 0 04/24/22 22:50: Sodium 140, Potassium 3.3 L, Chloride 105, Carbon Dioxide 28.0, Anion Gap 7, BUN 14, Creatinine 0.96, Estim Creat Clear Calc 65.89, Est GFR (MDRD) Af Amer 96, Est GFR (MDRD) Non-Af 79, BUN/Creatinine Ratio 14.5, Glucose 122 H, Calcium 8.4 L, Troponin I High Sens 14, TSH 6.00 H 04/24/22 22:50: Magnesium 1.9, Iron 12 L, TIBC 131 L, Iron Saturation 9.2 L, Ferritin 239, Total Bilirubin 0.70, Direct Bilirubin 0.32 H, AST 25, ALT 10 L, Alkaline Phosphatase 130 H, Total Protein 6.0 L, Albumin 2.2 L, Globulin 3.8 04/25/22 00:06: Procalcitonin 0.44 H 04/25/22 05:25: WBC 15.6 H, RBC 4.17 L, Hgb 10.4 L, Hct 32.4 L, MCV 77.7 L, MCH 24.9 L, MCHC 32.1, RDW Std Deviation 47.9 H, RDW Coeff of Pippa 17.1 H, Plt Count 234, MPV 10.2, Immature Gran % (Auto) 0.700, Neut % (Auto) 75.4 H, Lymph % (Auto) 11.6 L, Irwin % (Auto) 11.3 H, Eos % (Auto) 0.4, Baso % (Auto) 0.6, Absolute Neuts (auto) 11.7 H, Absolute Lymphs (auto) 1.80, Nucleated RBC % 0, Differential Comment SCANNED, Diff Path Review May foll, Smudge Cells RARE 04/25/22 05:25: Sodium 141, Potassium 3.5, Chloride 104, Carbon Dioxide 29.0, Anion Gap 8, BUN 13, Creatinine 0.92, Estim Creat Clear Calc 68.75, Est GFR (MDRD) Af Amer 101, Est GFR (MDRD) Non-Af 83, BUN/Creatinine Ratio 14.1, Glucose 94, Calcium 8.0 L, Total Bilirubin 0.70, AST 24, ALT 10 L, Alkaline Phosphatase 121 H, Total Protein 5.6 L, Albumin 2.0 L, Globulin 3.6, Albumin/Globulin Ratio 0.6 L, Free T4 1.07 04/25/22 06:00: Urine Color Yellow, Urine Clarity Clear, Urine pH 6.0, Ur Specific Goldfield 1.015, Urine Protein 30 H, Urine Glucose (UA) Normal, Urine Ketones 15 H, Urine Occult Blood 10 H, Urine Nitrite Negative, Urine Bilirubin Negative, Urine Urobilinogen 1 H, Ur Leukocyte Esterase 500 H, Urine RBC 0 SEEN, Urine WBC 5-10 SEEN, Ur Squamous Epith Cells 0 SEEN, Urine Bacteria RARE, Urine Mucus 0 SEEN 04/25/22 06:51: POC Glucose 104 Micro: Microbiology 04/25/22 06:00 Urine, Clean Catch Legionella Antigen - Final 04/25/22 06:00 Urine, Clean Catch Streptococcus pneumoniae Antigen (M - Final 04/25/22 01:01 Mucosa - Nasopharyngeal Respiratory Panel (PCR) - Final Rhythm Strip Rhythm Strip: Sinus Rhythm Rate: 80 Ectopy: None Radiology Impression Chest X-Ray 04/24/22 22:50 IMPRESSION: Persistent left upper lobe density. CT should be considered. Electronically Signed: Ezra Fernandez DO at 23:11 EDT Reading Location ID and State: [address] [place] [address] Tel [phone], Service support , Chest CT 04/24/22 23:42 IMPRESSION: There is a left upper lobe mass measures approximately 9.5 x 6.2 cm. There is mediastinal left hilar lymphadenopathy stone with metastatic lesions the largest measures approximately 2 cm in diameter. There is small pericardial effusion. Small bilateral pleural effusions. Multiple metastatic lesions are seen in the very largest measures approximately 8 x 7 cm. Electronically Signed: Francis Morgan MD at 0:02 EDT , ADDENDUM: 04/25/22 0024 IMPRESSION: undefined Charges/Coding Visit Charges Inpatient E&M: 54633 Init Hosp L2 Procedures Hospitalists Procedures: 70102 Advncd Care Plan 30 Min
--- NOTE | 2022-04-25 09:57 | PN.HOSP_ITS ---
Subjective Subjective Doing well, no issues overnight. This morning he states that he does not want any aggressive work-up or interventions at this time Objective Data Objective Data Vital Signs: Vital Signs Temp Pulse Resp BP Pulse Ox O2 Del Method 98.0 F 96 16 113/72 95 Room Air 04/25/22 08:12 04/25/22 08:12 04/25/22 08:12 04/25/22 08:12 04/25/22 08:12 04/25/22 09:02 Oxygen Delivery Method Room Air Weight: 216 lb 11.43 oz Body Mass Index (BMI) 28.6 Intake & Output: Intake and Output for Last 24 Hours 04/24/22 04/25/22 04/26/22 03:59 03:59 03:59 Intake Total 616 / 616 241 / 241 Output Total 150 / 150 Balance 616 / 616 91 / 91 Lab / Micro Data Result Diagrams: 04/25/22 05:25 04/25/22 05:25 Labs: Laboratory Results - last 24 hr 04/24/22 22:50: WBC 17.4 H, RBC 4.28 L, Hgb 10.6 L, Hct 33.4 L, MCV 78.0 L, MCH 24.8 L, MCHC 31.7 L, RDW Std Deviation 47.9 H, RDW Coeff of Pippa 17.1 H, Plt Count 257, MPV 10.0, Immature Gran % (Auto) 0.800, Neut % (Auto) 82.8 H, Lymph % (Auto) 7.2 L, [place] % (Auto) 8.6, Eos % (Auto) 0.1, Baso % (Auto) 0.5, Absolute Neuts (auto) 14.4 H, Absolute Lymphs (auto) 1.25, Nucleated RBC % 0 04/24/22 22:50: Sodium 140, Potassium 3.3 L, Chloride 105, Carbon Dioxide 28.0, Anion Gap 7, BUN 14, Creatinine 0.96, Estim Creat Clear Calc 65.89, Est GFR (MDRD) Af Amer 96, Est GFR (MDRD) Non-Af 79, BUN/Creatinine Ratio 14.5, Glucose 122 H, Calcium 8.4 L, Troponin I High Sens 14, TSH 6.00 H 04/24/22 22:50: Magnesium 1.9, Iron 12 L, TIBC 131 L, Iron Saturation 9.2 L, Ferritin 239, Total Bilirubin 0.70, Direct Bilirubin 0.32 H, AST 25, ALT 10 L, Alkaline Phosphatase 130 H, Total Protein 6.0 L, Albumin 2.2 L, Globulin 3.8 04/25/22 00:06: Procalcitonin 0.44 H 04/25/22 05:25: WBC 15.6 H, RBC 4.17 L, Hgb 10.4 L, Hct 32.4 L, MCV 77.7 L, MCH 24.9 L, MCHC 32.1, RDW Std Deviation 47.9 H, RDW Coeff of Pippa 17.1 H, Plt Count 234, MPV 10.2, Immature Gran % (Auto) 0.700, Neut % (Auto) 75.4 H, Lymph % (Auto) 11.6 L, [place] % (Auto) 11.3 H, Eos % (Auto) 0.4, Baso % (Auto) 0.6, Absolute Neuts (auto) 11.7 H, Absolute Lymphs (auto) 1.80, Nucleated RBC % 0, Differential Comment SCANNED, Diff Path Review May foll, Smudge Cells RARE 04/25/22 05:25: Sodium 141, Potassium 3.5, Chloride 104, Carbon Dioxide 29.0, Anion Gap 8, BUN 13, Creatinine 0.92, Estim Creat Clear Calc 68.75, Est GFR (MDRD) Af Amer 101, Est GFR (MDRD) Non-Af 83, BUN/Creatinine Ratio 14.1, Glucose 94, Calcium 8.0 L, Total Bilirubin 0.70, AST 24, ALT 10 L, Alkaline Phosphatase 121 H, Total Protein 5.6 L, Albumin 2.0 L, Globulin 3.6, Albumin/Globulin Ratio 0.6 L, Free T4 1.07 04/25/22 06:00: Urine Color Yellow, Urine Clarity Clear, Urine pH 6.0, Ur Specific [place] 1.015, Urine Protein 30 H, Urine Glucose (UA) Normal, Urine Ketones 15 H, Urine Occult Blood 10 H, Urine Nitrite Negative, Urine Bilirubin Negative, Urine Urobilinogen 1 H, Ur Leukocyte Esterase 500 H, Urine RBC 0 SEEN, Urine WBC 5-10 SEEN, Ur Squamous Epith Cells 0 SEEN, Urine Bacteria RARE, Urine Mucus 0 SEEN 04/25/22 06:51: POC Glucose 104 Micro: Microbiology 04/25/22 06:00 Urine, Clean Catch Legionella Antigen - Final 04/25/22 06:00 Urine, Clean Catch Streptococcus pneumoniae Antigen (M - Final 04/25/22 01:01 Mucosa - Nasopharyngeal Respiratory Panel (PCR) - Final Radiography Diagnostic Testing: Radiology Impression Chest X-Ray 04/24/22 22:50 IMPRESSION: Persistent left upper lobe density. CT should be considered. Electronically Signed: Ezra eFrnandez DO at 23:11 EDT , Chest CT 04/24/22 23:42 IMPRESSION: There is a left upper lobe mass measures approximately 9.5 x 6.2 cm. There is mediastinal left hilar lymphadenopathy stone with metastatic lesions the largest measures approximately 2 cm in diameter. There is small pericardial effusion. Small bilateral pleural effusions. Multiple metastatic lesions are seen in the very largest measures approximately 8 x 7 cm. Electronically Signed: Francis Morgan MD at 0:02 EDT Reading Location ID and State: [facility]– [place][note 2]5 / [place] Tel , Service support , ADDENDUM: 04/25/22 0024 IMPRESSION: undefined Rhythm Strip Rhythm Strip: Sinus Rhythm Rate: 80 Ectopy: None Physical Exam Narrative General: Alert, Oriented x3, Cooperative, No apparent distress HEENT: Atraumatic, PERRLA, EOMI, Normocephalic Oral: Moist Mucosa Neck: Supple, No JVD Lungs: Diminished, Normal air movement, rhonchi, No wheeze, No rales Cardiovascular: Regular rate, Regular Rhythm, Normal S1, Normal S2, No murmurs Abdomen: Soft, Non Tender, Non-Distended, No Hepato-splenomegaly Extremities: No edema, Capillary Refill Less than 3 Seconds Skin: No rashes, No breakdown Musculoskeletal: No Tenderness to Palpation of Joints or Extremities Neurological: Cranial nerves II-XII grossly intact, Motor Exam 5/5 strength throughout, Sensory exam intact to light touch and pain Psych/Mental Status: Normal Affect, Appropriate Assessment & Plan Assessment/Plan (1) Declining functional status: PLAN: Plan 1. Persistent left upper lobe density likely cancer/failure to thrive/postobstructive pneumonia ? I had a 20-minute discussion with him on advance care planning he does not want to proceed with any type of investigation or treatment ? PT/OT for evaluation and discharge planning ? Continue with Zosyn, leukocytosis is improving 2. History of CVA/HTN/HLD/carotid disease ? Continue with his home blood pressure medications ? Continue with his home statin ? 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 History of esophageal cancer status post excision ? She had esophageal cancer 4 years ago status post radiation and chemotherapy as well as laryngectomy 4. DM2 ? Hold his oral medications ? Accu-Cheks AC at bedtime ? Sliding scale insulin ? We will make adjustments as necessary 5. Hypothyroidism ? Stable ? Continue with Synthroid ? T4 is pending, as his TSH was slightly elevated to 6 DVT: Lovenox Charges/Coding Visit Charges Inpatient E&M: 05980 Subs Hosp L2 Procedures Hospitalists Procedures: 27480 Advncd Care Plan 30 Min
--- NOTE | 2022-04-25 12:30 | CASEMGMT ---
STEFANIA NASCIMENTO Face to Face with patient for initial transition planning/care coordination assessment. RN CM introduced self and role at [facility]. Patient lying in bed, alert and oriented. Patient willing to participate in assessment and is able to answer all questions appropriately. Care providers, pharmacy, and demographics verified. Patient wishes to discharge home but is willing to go to SNF if needed for additional therapy. Will monitor progress with therapy. Patient states he has no further needs or concerns at this time. SW to provide patient with SNF list. CM to follow for discharge planning needs that may arise. PCP: Deny Specialists: none Preferred Pharmacy: [facility] Insurance: [employer] Medicare Prescription Benefit: yes Living Will/HPOA: yes, son Pee Marx, HPOA LNOK: son Living Arrangements: Patient lives alone in a mobile home with 6 steps and railing to enter the home. Patient states he was independent at home prior to current illness. Transportation: self, son DME/HHC: Patient states he has shower chair, raised toilet, cane, walker, grab bars, and suction machine at home. Patient has been to [facility] and [facility] in the past. Disposition Plan: Anticipate SNF at discharge, will monitor progress with therapy. Alicia REDMOND, RN, CM
[2022-04-25 14:12] LABS: M R Staph aureus DNA By PCR Negative (Negative); Probe Check PASS; Specimen Processing Control PASS
--- NOTE | 2022-04-25 15:34 | CM.ED ---
SW met with patient to discuss discharge planning. Patient said that his first choice for SNF [facility]. Patient does not have second choice. Patient expressed concern about the cost of SNF. Plan: [facility].
[2022-04-25 17:35] LABS: Bedside Glucose 115 mg/dL (74-106)
[2022-04-25 19:51] LABS: Bedside Glucose 134 mg/dL (74-106)
[2022-04-25] MEDS: Tamsulosin HCl 0.4 MG Capsule PO (20:34)
[2022-04-25] MEDS: Atorvastatin Calcium 40 MG Tablet PO (20:35)
[2022-04-25 21:06] LABS: Bedside Glucose 156 mg/dL (74-106)
[2022-04-26] VITALS (7 sets, daily range): BP systolic 101–146; BP diastolic 56–85; PULSE 68–88; RESP 16–18; TEMP 36.4–36.6; O2SAT 91–96
[2022-04-26] MEDS: Levothyroxine 112 MCG Tablet PO (05:52)
[2022-04-26 06:16] LABS: Bedside Glucose 108 mg/dL (74-106)
[2022-04-26] MEDS: Lisinopril 10 MG Tablet 30 MG PO (09:26)
[2022-04-26] MEDS: NYSTATIN 500,000 UNIT/5 ML UDC 500000 UNIT PO ×4 (09:27→22:07)
[2022-04-26] MEDS: Aspirin 81 MG TAB.CHEW PO (09:27)
[2022-04-26] MEDS: Glucerna Shake 120 ML LIQUID PO ×3 (09:27→22:08)
[2022-04-26] MEDS: Pantoprazole Sodium 20 MG Tablet PO ×2 (09:27→22:08)
--- NOTE | 2022-04-26 09:38 | PCM.PN.HOSP ---
Subjective Subjective Doing well, no issues overnight. Objective Data Objective Data Vital Signs: Vital Signs Temp Pulse Resp BP Pulse Ox O2 Del Method 97.5 F L 71 18 126/56 H 95 Room Air 04/26/22 08:07 04/26/22 08:07 04/26/22 08:07 04/26/22 08:07 04/26/22 08:09 04/26/22 08:09 Oxygen Delivery Method Room Air Weight: 220 lb 3.869 oz Body Mass Index (BMI) 28.6 Intake & Output: Intake and Output for Last 24 Hours 04/25/22 04/26/22 04/27/22 03:59 03:59 03:59 Intake Total 616 / 616 2042 / 2042 150 / 150 Output Total 350 / 350 Balance 616 / 616 1692 / 1692 150 / 150 Medical Nutrition Assessment Dietitian: Malnutrition Criteria Met Start: 04/25/22 10:00 Freq: Status: Active Protocol: Document 04/25/22 10:00 (Rec: 04/25/22 10:00 [id number]) Nutrition Malnutrition Evidence of Malnutrition Exists Yes Malnutrition (severe): Chronic Evidenced By Suboptimal Energy Intake ( Severe),Weight Loss (Severe) Clinical Problem Chronic Disease or Condition Related Malnutrition Etiology chronic, severe malnutrition related to inadequate energy intake Signs/Symptoms as evidenced by unintentional wt loss of 63.3#/23% wt loss x 1 year, estimated PO intake meeting <75% of estimated energy needs >3 months Status Active Problem Recommendation Dietitian Recommendations/Changes will adjust diet to CHO controlled (no calorie/protein restriction) given malnutrition; continue glucerna 120mL 4x/day for additional calories/protein if consumed. will consider liberalizing diet to regular if PO intake at meals is poor. Lab / Micro Data Result Diagrams: 04/25/22 05:25 04/25/22 05:25 Labs: Laboratory Results - last 24 hr 04/25/22 06:00: MRSA (PCR) Negative 04/25/22 12:00: POC Glucose 115 H 04/25/22 17:16: POC Glucose 134 H 04/25/22 20:32: POC Glucose 156 H 04/26/22 05:52: POC Glucose 108 H Micro: Microbiology 04/25/22 06:00 Urine, Clean Catch Legionella Antigen - Final 04/25/22 06:00 Urine, Clean Catch Streptococcus pneumoniae Antigen (M - Final 04/25/22 01:01 Mucosa - Nasopharyngeal Respiratory Panel (PCR) - Final Rhythm Strip Rhythm Strip: Sinus Rhythm Rate: 80 Ectopy: None Physical Exam Narrative General: Alert, Oriented x3, Cooperative, No apparent distress HEENT: Atraumatic, PERRLA, EOMI, Normocephalic Oral: Moist Mucosa Neck: Supple, No JVD Lungs: Diminished, Normal air movement, rhonchi, No wheeze, No rales Cardiovascular: Regular rate, Regular Rhythm, Normal S1, Normal S2, No murmurs Abdomen: Soft, Non Tender, Non-Distended, No Hepato-splenomegaly Extremities: No edema, Capillary Refill Less than 3 Seconds Skin: No rashes, No breakdown Musculoskeletal: No Tenderness to Palpation of Joints or Extremities Neurological: Cranial nerves II-XII grossly intact, Motor Exam 5/5 strength throughout, Sensory exam intact to light touch and pain Psych/Mental Status: Normal Affect, Appropriate Assessment & Plan Assessment/Plan (1) Declining functional status: PLAN: Plan 1. Persistent left upper lobe density likely cancer/failure to thrive/postobstructive pneumonia ? I had a 20-minute discussion with him on advance care planning he does not want to proceed with any type of investigation or treatment ? PT/OT for evaluation and discharge planning ? Continue with Zosyn, leukocytosis is improving 2. History of CVA/HTN/HLD/carotid disease ? Continue with his home blood pressure medications ? Continue with his home statin ? 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 History of esophageal cancer status post excision ? She had esophageal cancer 4 years ago status post radiation and chemotherapy as well as laryngectomy 4. DM2 ? Hold his oral medications ? Accu-Cheks AC at bedtime ? Sliding scale insulin ? We will make adjustments as necessary 5. Hypothyroidism ? Stable ? Continue with Synthroid ? T4 is pending, as his TSH was slightly elevated to 6 DVT: Lovenox Charges/Coding Visit Charges Inpatient E&M: 52573 Subs Hosp L2
[2022-04-26 11:36] LABS: Bedside Glucose 213 mg/dL (74-106)
[2022-04-26] MEDS: Atorvastatin Calcium 40 MG Tablet PO (22:07)
[2022-04-26] MEDS: Tamsulosin HCl 0.4 MG Capsule PO (22:08)
[2022-04-26] MEDS: traZODone 50 MG Tablet PO (22:08)
[2022-04-27] VITALS (9 sets, daily range): BP systolic 104–145; BP diastolic 48–59; PULSE 67–86; RESP 14–18; TEMP 36.4–37.1; O2SAT 91–97
[2022-04-27 04:59] LABS: Absolute Lymphocyte Count 1.27 X10^3/uL (0.83-4.51); Absolute Neutrophil Count 10.8 X10^3/uL (2.0-7.7); Basophil# 0.07 X10^3/uL; Basophil% 0.5 % (0-1); Eosinophil# 0.15 X10^3/uL; Eosinophils% 1.1 % (0-5); Hematocrit 30.2 % (40-54); Hemoglobin 9.9 g/dL (13.0-16.5); Lymphocyte # 1.27 X10^3/ul (0.83-4.51); Mean Corp Hgb Conc 32.8 g/dL (32-36); Mean Corpuscular Hgb 25.8 pg (27.0-32.0); Mean Corpuscular Volume 78.6 fL (80-94); Mean Platelet Vol. 10.7 fl (6.2-12.0); Monocyte# 1.62 X10^3/uL; Monocyte% 11.5 % (0-10); NRBC Flagged by Analyzer 0 % (0-5); Neutrophil # 10.84 X10^3/uL (2.7-7.7); Neutrophil % 77.1 % (47-70); POSITIVE DIFFERENTIAL YES; Platelet Count 229 K/mm3 (150-450); RBC Distribution Width CV 17.4 % (11.6-14.6); RBC Distribution Width SD 49.7 fl (35.1-43.9); Red Blood Count 3.84 M/mm3 (4.6-6.2); White Blood Count 14.1 K/mm3 (4.4-11.0)
[2022-04-27 05:06] LABS: Differential Indicated SCAN CRITERIA MET
[2022-04-27] MEDS: Levothyroxine 112 MCG Tablet PO (05:10)
[2022-04-27 05:41] LABS: Anion Gap 9 (5-15); BUN 18 mg/dL (7-18); BUN/Creat Ratio 13.7 RATIO (10-20); Chloride 107 mmol/L (98-107); Creatinine, Serum 1.31 mg/dL (0.70-1.30); EST Glomerular Filtration Rate 56 mL/min (>60); Est Glom Filt Rate - Afr Amer 67 mL/min (>60); Estimated Creatinine Clearance 48.29 ml/min; Glucose 118 mg/dL (74-106); Potassium 3.3 mmol/L (3.5-5.1); Sodium Level 140 mmol/L (136-145)
[2022-04-27 05:54] LABS: Differential Comment SCANNED
[2022-04-27] MEDS: Potassium Chloride Oral Tablet 20 MEQ 40 MEQ PO (08:30)
[2022-04-27] MEDS: Aspirin 81 MG TAB.CHEW PO (08:30)
[2022-04-27] MEDS: NYSTATIN 500,000 UNIT/5 ML UDC 500000 UNIT PO ×4 (09:48→22:12)
[2022-04-27] MEDS: Pantoprazole Sodium 20 MG Tablet PO ×2 (09:49→22:16)
[2022-04-27] MEDS: Glucerna Shake 120 ML LIQUID PO ×4 (09:57→22:11)
[2022-04-27 11:16] LABS: Pathologist Review Reviewed
[2022-04-27 11:20] LABS: Pathologist Review Reviewed
--- NOTE | 2022-04-27 14:11 | PN.HOSP_ITS ---
Subjective Subjective DOS: 04/27/2022 CC: Generalized weakness Patient reports his breathing has been improving. Does continue to have se cretions/cough but endorses that this is chronic. Denies nausea or vomiting. Feels better overall aside from general weakness. Would still like to go to retirement facility upon discharge. No chest pain Objective Data Objective Data Vital Signs: Vital Signs Temp Pulse Resp BP Pulse Ox O2 Del Method 97.6 F L 77 14 107/54 L 96 Room Air 04/27/22 14:08 04/27/22 14:08 04/27/22 14:08 04/27/22 14:08 04/27/22 14:08 04/27/22 14:08 Oxygen Delivery Method Room Air Weight: 100.8 kg Body Mass Index (BMI) 28.6 Intake & Output: Intake and Output for Last 24 Hours 04/25/22 04/26/22 04/27/22 23:59 23:59 23:59 Intake Total 2408 / 2608 1837.5 / 1837.5 202.5 / 202.5 Output Total 350 / 350 Balance 2058 / 2258 1837.5 / 1837.5 202.5 / 202.5 Medical Nutrition Assessment Dietitian: Malnutrition Criteria Met Start: 04/25/22 10:00 Freq: Status: Active Protocol: Document 04/25/22 10:00 (Rec: 04/25/22 10:00 [id number]) Nutrition Malnutrition Evidence of Malnutrition Exists Yes Malnutrition (severe): Chronic Evidenced By Suboptimal Energy Intake ( Severe),Weight Loss (Severe) Clinical Problem Chronic Disease or Condition Related Malnutrition Etiology chronic, severe malnutrition related to inadequate energy intake Signs/Symptoms as evidenced by unintentional wt loss of 63.3#/23% wt loss x 1 year, estimated PO intake meeting <75% of estimated energy needs >3 months Status Active Problem Recommendation Dietitian Recommendations/Changes will adjust diet to CHO controlled (no calorie/protein restriction) given malnutrition; continue glucerna 120mL 4x/day for additional calories/protein if consumed. will consider liberalizing diet to regular if PO intake at meals is poor. Lab / Micro Data Result Diagrams: 04/27/22 04:16 04/27/22 04:16 Labs: Laboratory Results - last 24 hr 04/25/22 05:25: Diff Path Review Reviewed 04/27/22 04:16: WBC 14.1 H, RBC 3.84 L, Hgb 9.9 L, Hct 30.2 L, MCV 78.6 L, MCH 25.8 L, MCHC 32.8, RDW Std Deviation 49.7 H, RDW Coeff of Pippa 17.4 H, Plt Count 229, MPV 10.7, Immature Gran % (Auto) 0.800, Neut % (Auto) 77.1 H, Lymph % (Auto) 9.0 L, [place] % (Auto) 11.5 H, Eos % (Auto) 1.1, Baso % (Auto) 0.5, Absolute Neuts (auto) 10.8 H, Absolute Lymphs (auto) 1.27, Nucleated RBC % 0, Differential Comment SCANNED, Diff Path Review Reviewed 04/27/22 04:16: Sodium 140, Potassium 3.3 L, Chloride 107, Carbon Dioxide 24.0, Anion Gap 9, BUN 18, Creatinine 1.31 H, Estim Creat Clear Calc 48.29, Est GFR (MDRD) Af Amer 67, Est GFR (MDRD) Non-Af 56 L, BUN/Creatinine Ratio 13.7, Glucose 118 H, Calcium 8.0 L Micro: Microbiology 04/25/22 06:00 Urine, Clean Catch Legionella Antigen - Final 04/25/22 06:00 Urine, Clean Catch Streptococcus pneumoniae Antigen (M - Final 04/25/22 01:01 Mucosa - Nasopharyngeal Respiratory Panel (PCR) - Final Rhythm Strip Rhythm Strip: Sinus Rhythm Rate: 80 Ectopy: None Physical Exam Const alert and no apparent distress Constitutional Narrative: Oriented HEENT normocephalic and head/scalp atraumatic Eyes Eyes Narrative: EOM grossly intact, anicteric Neck Neck Narrative: Has tracheostomy Resp normal respiratory effort Resp Narrative: Diminished at the bases Cardio regular rate and regular rhythm GI soft to palpation, non-tender and non-distended Extremity Extremity Narrative: No edema appreciated Neuro moves all extremities Neuro Narrative: No overt focal deficits appreciated Psych Psych Narrative: Cooperative Assessment & Plan Assessment/Plan (1) Declining functional status: PLAN: Plan #Persistent left upper lobe density likely cancer/failure to thrive/postobstructive pneumonia ? He would not like any further cancer investigation or treatment ? PT/OT-retirement facility on discharge ? Continue with Zosyn, leukocytosis is improving ?Pulmonology/ICU has been following #Postobstructive pneumonia Validation, leukocytosis, elevated Pro-Adriano, improving on current antibiotics Continue Zosyn for total of 5-day course #Acute renal insufficiency Baseline appears to be 0.95, today 1.31 Will give small bolus of fluid Encourage p.o. intake Hold lisinopril, SBP low 100s, will hold off starting another agent at this time #Generalized weakness/failure to thrive He does not want any further work-up or treatment for suspected advanced stage cancer Not having significant symptoms at this time, is interested in going to SNF on discharge #Microcytic anemia Has been present for several months Appears to be mixed chronic disease and iron deficiency based on iron panel and ferritin Will start iron supplementation #Leukocytosis Likely secondary to postobstructive pneumonia Improving with Zosyn, will continue for 5-day course #History of CVA/HTN/HLD/carotid disease ? Continue with his home blood pressure medications ? Continue with his home statin ? 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 She had esophageal cancer 4 years ago status post radiation and chemotherapy as well as laryngectomy #DM2 ? Hold his oral medications ? Reasonable to not have on sliding scale given goals of care and minimally elevated glucose #Hypothyroidism ? Stable ? Continue with Synthroid ? TSH was 6 but T4 is within normal limits DVT: Lovenox discontinued per patient preference, CODE STATUS changed to DNR comfort care Charges/Coding Visit Charges Inpatient E&M: 66270 Subs Hosp L2
[2022-04-27] MEDS: Atorvastatin Calcium 40 MG Tablet PO (22:12)
[2022-04-27] MEDS: Tamsulosin HCl 0.4 MG Capsule PO (22:12)
[2022-04-27] MEDS: traZODone 50 MG Tablet PO (22:12)
[2022-04-28] VITALS (11 sets, daily range): BP systolic 112–138; BP diastolic 49–68; PULSE 65–85; RESP 16–18; TEMP 36.7–37.6; O2SAT 93–96
[2022-04-28] MEDS: Levothyroxine 112 MCG Tablet PO (06:13)
[2022-04-28 07:02] LABS: Absolute Lymphocyte Count 1.94 X10^3/uL (0.83-4.51); Absolute Neutrophil Count 8.8 X10^3/uL (2.0-7.7); Basophil# 0.08 X10^3/uL; Basophil% 0.6 % (0-1); Eosinophil# 0.12 X10^3/uL; Hematocrit 29.3 % (40-54); Hemoglobin 9.1 g/dL (13.0-16.5); Lymphocyte # 1.94 X10^3/ul (0.83-4.51); Lymphocyte % 15.5 % (19-41); Mean Corp Hgb Conc 31.1 g/dL (32-36); Mean Corpuscular Hgb 24.5 pg (27.0-32.0); Mean Corpuscular Volume 78.8 fL (80-94); Mean Platelet Vol. 11.1 fl (6.2-12.0); Monocyte# 1.46 X10^3/uL; Monocyte% 11.7 % (0-10); NRBC Flagged by Analyzer 0 % (0-5); Neutrophil # 8.83 X10^3/uL (2.7-7.7); Neutrophil % 70.5 % (47-70); Platelet Count 230 K/mm3 (150-450); RBC Distribution Width CV 17.6 % (11.6-14.6); RBC Distribution Width SD 50.2 fl (35.1-43.9); Red Blood Count 3.72 M/mm3 (4.6-6.2); White Blood Count 12.5 K/mm3 (4.4-11.0)
[2022-04-28 07:34] LABS: ALB/GLOB Ratio 0.6 RATIO (0.9-2.4); AST(SGOT) 31 U/L (15-37); Alanine Aminotransfer ALT/SGPT 11 U/L (16-61); Alkaline Phosphatase 117 U/L (45-117); Anion Gap 7 (5-15); BUN 20 mg/dL (7-18); BUN/Creat Ratio 15.4 RATIO (10-20); Calcium,Total 7.7 mg/dL (8.5-10.1); Chloride 108 mmol/L (98-107); EST Glomerular Filtration Rate 56 mL/min (>60); Est Glom Filt Rate - Afr Amer 68 mL/min (>60); Estimated Creatinine Clearance 48.66 ml/min; Globulin 3.3 g/dL (2.2-4.2); Glucose 100 mg/dL (74-106); Potassium 3.8 mmol/L (3.5-5.1); Protein, Total 5.3 g/dL (6.4-8.2); Sodium Level 142 mmol/L (136-145)
--- NOTE | 2022-04-28 08:11 | CASEMGMT ---
Discharge Specialist Wound Care This technical document writer reviewed chart and seemed like patient wanted [facility]. This technical document writer checked [facility] and there was a referral sent but know information sent with it. This technical document writer reached out to BRIAN Hamilton to see what was going on. BRIAN was under the impression we were waiting on pre-cert. This technical document writer went ahead and sent referral to [facility] via [facility]. Will follow up. Linda ZELAYA Bow Rehairer
--- NOTE | 2022-04-28 08:17 | PCM.PN.HOSP ---
Subjective Subjective DOS 04/28/2022 CC: Continued sputum production Patient sleeping soundly this a.m., upon awakening reported feeling roughly the same, no changes in his shortness of breath or cough. Would still like to go to SNF. Denied other complaints this AM Objective Data Objective Data Vital Signs: Vital Signs Temp Pulse Resp BP Pulse Ox O2 Del Method 99.7 F H 85 16 112/53 L 93 Room Air 04/28/22 07:49 04/28/22 07:49 04/28/22 07:49 04/28/22 07:49 04/28/22 07:49 04/28/22 07:52 Oxygen Delivery Method Room Air Weight: 101.2 kg Body Mass Index (BMI) 28.6 Intake & Output: Intake and Output for Last 24 Hours 04/26/22 04/27/22 04/28/22 23:59 23:59 23:59 Intake Total 1837.5 / 1837.5 1642.5 / 1642.5 50 / 50 Balance 1837.5 / 1837.5 1642.5 / 1642.5 50 / 50 Medical Nutrition Assessment Dietitian: Malnutrition Criteria Met Start: 04/25/22 10:00 Freq: Status: Active Protocol: Document 04/25/22 10:00 (Rec: 04/25/22 10:00 [id number]) Nutrition Malnutrition Evidence of Malnutrition Exists Yes Malnutrition (severe): Chronic Evidenced By Suboptimal Energy Intake ( Severe),Weight Loss (Severe) Clinical Problem Chronic Disease or Condition Related Malnutrition Etiology chronic, severe malnutrition related to inadequate energy intake Signs/Symptoms as evidenced by unintentional wt loss of 63.3#/23% wt loss x 1 year, estimated PO intake meeting <75% of estimated energy needs >3 months Status Active Problem Recommendation Dietitian Recommendations/Changes will adjust diet to CHO controlled (no calorie/protein restriction) given malnutrition; continue glucerna 120mL 4x/day for additional calories/protein if consumed. will consider liberalizing diet to regular if PO intake at meals is poor. Lab / Micro Data Result Diagrams: 04/28/22 05:50 04/28/22 05:50 Labs: Laboratory Results - last 24 hr 04/25/22 05:25: Diff Path Review Reviewed 04/27/22 04:16: Diff Path Review Reviewed 04/28/22 05:50: WBC 12.5 H, RBC 3.72 L, Hgb 9.1 L, Hct 29.3 L, MCV 78.8 L, MCH 24.5 L, MCHC 31.1 L D, RDW Std Deviation 50.2 H, RDW Coeff of Pippa 17.6 H, Plt Count 230, MPV 11.1, Immature Gran % (Auto) 0.700, Neut % (Auto) 70.5 H, Lymph % (Auto) 15.5 L, [place] % (Auto) 11.7 H, Eos % (Auto) 1.0, Baso % (Auto) 0.6, Absolute Neuts (auto) 8.8 H, Absolute Lymphs (auto) 1.94, Nucleated RBC % 0 04/28/22 05:50: Sodium 142, Potassium 3.8, Chloride 108 H, Carbon Dioxide 27.0, Anion Gap 7, BUN 20 H, Creatinine 1.30, Estim Creat Clear Calc 48.66, Est GFR (MDRD) Af Amer 68, Est GFR (MDRD) Non-Af 56 L, BUN/Creatinine Ratio 15.4, Glucose 100, Calcium 7.7 L, Total Bilirubin 0.70, AST 31, ALT 11 L, Alkaline Phosphatase 117, Total Protein 5.3 L, Albumin 2.0 L, Globulin 3.3, Albumin/Globulin Ratio 0.6 L Micro: Microbiology 04/28/22 02:06 Stool Stool Occult Blood (RAYA) - Final Occult Blood Positive 04/25/22 06:00 Urine, Clean Catch Legionella Antigen - Final 04/25/22 06:00 Urine, Clean Catch Streptococcus pneumoniae Antigen (M - Final 04/25/22 01:01 Mucosa - Nasopharyngeal Respiratory Panel (PCR) - Final Rhythm Strip Rhythm Strip: Sinus Rhythm Rate: 80 Ectopy: None Physical Exam Const alert and no apparent distress Constitutional Narrative: Oriented HEENT normocephalic and head/scalp atraumatic Eyes Eyes Narrative: EOM grossly intact, anicteric Neck Neck Narrative: Has tracheostomy Resp normal respiratory effort Resp Narrative: Diminished at the bases Cardio regular rate and regular rhythm GI soft to palpation, non-tender and non-distended Extremity Extremity Narrative: No edema appreciated Neuro moves all extremities Neuro Narrative: No overt focal deficits appreciated Psych Psych Narrative: Cooperative Assessment & Plan Assessment/Plan (1) Declining functional status: PLAN: Plan #Persistent left upper lobe density likely cancer/failure to thrive/postobstructive pneumonia ? He would not like any further cancer investigation or treatment ? PT/OT-care home facility on discharge-medically appropriate for discharge ? Continue with Zosyn, leukocytosis is improving, will treat for 5-day course ?Pulmonology/ICU has been following #Postobstructive pneumonia leukocytosis, elevated Pro-Adriano, improving on current antibiotics Continue Zosyn for total of 5-day course #Acute renal insufficiency Baseline appears to be 0.95, slightly improved from 1.31-1.30, encourage oral hydration Had small bolus of fluid yesterday Encourage p.o. intake Hold lisinopril, SBP low 100s, will hold off starting another agent at this time #Generalized weakness/failure to thrive He does not want any further work-up or treatment for suspected advanced stage cancer Not having significant symptoms at this time, is interested in going to SNF on discharge #Microcytic anemia Has been present for several months Appears to be mixed chronic disease and iron deficiency based on iron panel and ferritin Will start iron supplementation #Leukocytosis Likely secondary to postobstructive pneumonia Improving with Zosyn, will continue for 5-day course #History of CVA/HTN/HLD/carotid disease ? Continue with his home blood pressure medications ? Continue with his home statin ? 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 She had esophageal cancer 4 years ago status post radiation and chemotherapy as well as laryngectomy #DM2 ? Hold his oral medications ? Reasonable to not have on sliding scale given goals of care and minimally elevated glucose #Hypothyroidism ? Stable ? Continue with Synthroid ? TSH was 6 but T4 is within normal limits DVT: Lovenox discontinued per patient preference, CODE STATUS changed to DNR comfort care Charges/Coding Visit Charges Inpatient E&M: 41727 Subs Hosp L2
--- NOTE | 2022-04-28 09:05 | CASEMGMT ---
Discharge Computer Systems Architect This database report writer reviewed chart and seemed like patient wanted [facility]. This database report writer checked Care Port and there was a referral sent but know information sent with it. This database report writer reached out to BRIAN Hamilton to see what the discharge plan is. BRIAN was under the impression we were waiting on pre-cert. This database report writer went ahead and sent referral to [facility] via [facility]. Will follow up. Linda ZELAYA Table Worker
[2022-04-28] MEDS: Glucerna Shake 120 ML LIQUID PO ×4 (10:02→21:39)
[2022-04-28] MEDS: NYSTATIN 500,000 UNIT/5 ML UDC 500000 UNIT PO ×4 (10:02→21:40)
[2022-04-28] MEDS: Pantoprazole Sodium 20 MG Tablet PO ×2 (10:02→21:39)
--- NOTE | 2022-04-28 10:23 | NURSING ---
Patient refused AM aspirin. Educated on risks of not taking as ordered. RN, Chayo, aware.
--- NOTE | 2022-04-28 11:24 | CASEMGMT ---
Social Work SW received pc from [facility] Metal Fabricating Inspector, Rosita, who has been working with pt at the request of Dr. Barclay. Rosita reported pt was [facility] to begin process of moving there. SW discussed currently discharge plan according to pt and is a fci for rehab. SW assured Rosita that SW would speak to pt regarding meeting [facility]. SW met with pt to discuss [facility] and going to [facility] rather than SNF. Pt denied wanting to meet with [facility]. Stated had previously met with facility and feels it is to expensive. Pt reported does not want to spend a lot of son's inheritance. Pt stated wants [facility] as he previously discussed with ED SW. This SW reassured pt that a referral had been sent to [facility] and is being reviewed. Brian talked with pt regarding private paying once insurance no longer covers stay. Pt refused to listen. BRIAN called Rosita back to update on pt decision. Rosita requested to visit pt. Rosita stated has a finanial breakdown of [place] cost for pt and is concern pt does not understand will have to pay privately for SNF once insurance stops paying. BRIAN reported to Rosita this discussion with private paying had just been held with pt and pt refused to listen. Rosita discussed intent to visit pt this afternoon. Plan: [facility], pending acceptance vs. JAMAR Slater
[2022-04-28] MEDS: Ferrous Sulfate 325 MG Tablet PO (11:31)
--- NOTE | 2022-04-28 14:30 | CASEMGMT ---
Discharge Rn Home Care This leader writer reached out about referral via Care Port and called and left a message. Linda ZELAYA Web Weaver
[2022-04-28] MEDS: traZODone 50 MG Tablet PO (21:39)
[2022-04-28] MEDS: Atorvastatin Calcium 40 MG Tablet PO (21:39)
[2022-04-28] MEDS: Tamsulosin HCl 0.4 MG Capsule PO (21:40)
[2022-04-29] VITALS (9 sets, daily range): BP systolic 112–140; BP diastolic 53–64; PULSE 63–90; RESP 14–20; TEMP 36.6–37.3; O2SAT 92–95
[2022-04-29 05:54] LABS: Absolute Lymphocyte Count 1.24 X10^3/uL (0.83-4.51); Absolute Neutrophil Count 9.8 X10^3/uL (2.0-7.7); Basophil# 0.05 X10^3/uL; Basophil% 0.4 % (0-1); Eosinophils% 0.8 % (0-5); Hematocrit 29.4 % (40-54); Hemoglobin 9.3 g/dL (13.0-16.5); Lymphocyte # 1.24 X10^3/ul (0.83-4.51); Lymphocyte % 9.7 % (19-41); Mean Corp Hgb Conc 31.6 g/dL (32-36); Mean Corpuscular Hgb 24.9 pg (27.0-32.0); Mean Corpuscular Volume 78.6 fL (80-94); Mean Platelet Vol. 10.8 fl (6.2-12.0); Monocyte# 1.57 X10^3/uL; Monocyte% 12.3 % (0-10); NRBC Flagged by Analyzer 0 % (0-5); Neutrophil # 9.76 X10^3/uL (2.7-7.7); Neutrophil % 76.2 % (47-70); POSITIVE DIFFERENTIAL YES; Platelet Count 210 K/mm3 (150-450); RBC Distribution Width CV 17.6 % (11.6-14.6); RBC Distribution Width SD 49.9 fl (35.1-43.9); Red Blood Count 3.74 M/mm3 (4.6-6.2); White Blood Count 12.8 K/mm3 (4.4-11.0)
[2022-04-29 05:56] LABS: Differential Indicated SCAN CRITERIA MET
[2022-04-29] MEDS: Levothyroxine 112 MCG Tablet PO (06:08)
[2022-04-29 06:21] LABS: Anisocytosis 1+
[2022-04-29 06:24] LABS: Microcytosis 1+
[2022-04-29 06:33] LABS: ALB/GLOB Ratio 0.6 RATIO (0.9-2.4); AST(SGOT) 31 U/L (15-37); Alanine Aminotransfer ALT/SGPT 13 U/L (16-61); Alkaline Phosphatase 115 U/L (45-117); Anion Gap 7 (5-15); BUN 20 mg/dL (7-18); BUN/Creat Ratio 17.2 RATIO (10-20); Calcium,Total 7.7 mg/dL (8.5-10.1); Chloride 108 mmol/L (98-107); Creatinine, Serum 1.16 mg/dL (0.70-1.30); EST Glomerular Filtration Rate 64 mL/min (>60); Est Glom Filt Rate - Afr Amer 77 mL/min (>60); Estimated Creatinine Clearance 54.53 ml/min; Globulin 3.5 g/dL (2.2-4.2); Glucose 101 mg/dL (74-106); Potassium 3.9 mmol/L (3.5-5.1); Protein, Total 5.5 g/dL (6.4-8.2); Sodium Level 142 mmol/L (136-145)
--- NOTE | 2022-04-29 08:45 | CASEMGMT ---
Discharge Warp Dyeing Tender This justowriter operator called [facility] and left a message. Linda ZELAYA Remote Sensing Specialist
[2022-04-29] MEDS: Pantoprazole Sodium 20 MG Tablet PO ×2 (09:13→21:48)
[2022-04-29] MEDS: Aspirin 81 MG TAB.CHEW PO (09:13)
[2022-04-29] MEDS: NYSTATIN 500,000 UNIT/5 ML UDC 500000 UNIT PO ×4 (09:13→21:48)
[2022-04-29] MEDS: Glucerna Shake 120 ML LIQUID PO ×4 (09:13→21:48)
[2022-04-29] MEDS: Ferrous Sulfate 325 MG Tablet PO (09:14)
[2022-04-29 09:44] LABS: Pathologist Review Reviewed
--- NOTE | 2022-04-29 09:59 | CASEMGMT ---
Discharge Senior Technical Writer This poem writer called [facility]. Shawnee the customer service receptionist stated admissions is still in a meeting. Shawnee took a name and call back number and stated she was not sure how long the meeting would last. Shawnee took patient name and asked what this message was in regards to. Linda ZELAYA Hand I Thermal Cutter
--- NOTE | 2022-04-29 10:43 | PCM.PN.HOSP ---
Subjective Subjective DOS: 04/29/2022 CC: Generalized weakness Endorses continuing to feel weak, slightly out of breath after ambulating in the hallway but feeling better now that he sitting in the chair, otherwise shortness of breath at rest is roughly unchanged, no change in cough or sputum production. No chest pain, no changes in bowel or bladder, reports he is eating fairly well Objective Data Objective Data Vital Signs: Vital Signs Temp Pulse Resp BP Pulse Ox O2 Del Method 97.8 F 74 20 H 125/54 H 92 Room Air 04/29/22 09:02 04/29/22 09:02 04/29/22 09:02 04/29/22 09:02 04/29/22 09:02 04/29/22 09:02 Oxygen Delivery Method Room Air Weight: 101.2 kg Body Mass Index (BMI) 28.6 Intake & Output: Intake and Output for Last 24 Hours 04/27/22 04/28/22 04/29/22 23:59 23:59 23:59 Intake Total 1642.5 / 1642.5 1351.25 / 1351.25 50 / 50 Balance 1642.5 / 1642.5 1351.25 / 1351.25 50 / 50 Medical Nutrition Assessment Dietitian: Malnutrition Criteria Met Start: 04/25/22 10:00 Freq: Status: Active Protocol: Document 04/25/22 10:00 (Rec: 04/25/22 10:00 [id number]) Nutrition Malnutrition Evidence of Malnutrition Exists Yes Malnutrition (severe): Chronic Evidenced By Suboptimal Energy Intake ( Severe),Weight Loss (Severe) Clinical Problem Chronic Disease or Condition Related Malnutrition Etiology chronic, severe malnutrition related to inadequate energy intake Signs/Symptoms as evidenced by unintentional wt loss of 63.3#/23% wt loss x 1 year, estimated PO intake meeting <75% of estimated energy needs >3 months Status Active Problem Recommendation Dietitian Recommendations/Changes will adjust diet to CHO controlled (no calorie/protein restriction) given malnutrition; continue glucerna 120mL 4x/day for additional calories/protein if consumed. will consider liberalizing diet to regular if PO intake at meals is poor. Lab / Micro Data Result Diagrams: 04/29/22 04:23 04/29/22 04:23 Labs: Laboratory Results - last 24 hr 04/29/22 04:23: WBC 12.8 H, RBC 3.74 L, Hgb 9.3 L, Hct 29.4 L, MCV 78.6 L, MCH 24.9 L, MCHC 31.6 L, RDW Std Deviation 49.9 H, RDW Coeff of Pippa 17.6 H, Plt Count 210, MPV 10.8, Immature Gran % (Auto) 0.600, Neut % (Auto) 76.2 H, Lymph % (Auto) 9.7 L, [place] % (Auto) 12.3 H, Eos % (Auto) 0.8, Baso % (Auto) 0.4, Absolute Neuts (auto) 9.8 H, Absolute Lymphs (auto) 1.24, Nucleated RBC % 0, Diff Path Review Reviewed, Anisocytosis 1+, Microcytosis 1+, Macrocytosis PHOTOENGRAVING MACHINE OPERATOR/TENDER 04/29/22 04:23: Sodium 142, Potassium 3.9, Chloride 108 H, Carbon Dioxide 27.0, Anion Gap 7, BUN 20 H, Creatinine 1.16, Estim Creat Clear Calc 54.53, Est GFR (MDRD) Af Amer 77, Est GFR (MDRD) Non-Af 64, BUN/Creatinine Ratio 17.2, Glucose 101, Calcium 7.7 L, Total Bilirubin 0.70, AST 31, ALT 13 L, Alkaline Phosphatase 115, Total Protein 5.5 L, Albumin 2.0 L, Globulin 3.5, Albumin/Globulin Ratio 0.6 L Micro: Microbiology 04/28/22 02:06 Stool Stool Occult Blood (RAYA) - Final Occult Blood Positive 04/25/22 06:00 Urine, Clean Catch Legionella Antigen - Final 04/25/22 06:00 Urine, Clean Catch Streptococcus pneumoniae Antigen (M - Final 04/25/22 01:01 Mucosa - Nasopharyngeal Respiratory Panel (PCR) - Final Rhythm Strip Rhythm Strip: Sinus Rhythm Rate: 80 Ectopy: None Physical Exam Const alert and no apparent distress Constitutional Narrative: Oriented HEENT normocephalic and head/scalp atraumatic Eyes Eyes Narrative: EOM grossly intact, anicteric Neck Neck Narrative: Has tracheostomy Resp normal respiratory effort Resp Narrative: Diminished at the bases Cardio regular rate and regular rhythm GI soft to palpation, non-tender and non-distended Extremity Extremity Narrative: No edema appreciated Neuro moves all extremities Neuro Narrative: No overt focal deficits appreciated Psych Psych Narrative: Cooperative Assessment & Plan Assessment/Plan (1) Declining functional status: PLAN: Plan #Persistent left upper lobe density likely cancer/failure to thrive/postobstructive pneumonia ? He would not like any further cancer investigation or treatment ? PT/OT-correction facility on discharge-medically appropriate for discharge ? Continue with Zosyn, leukocytosis is improving, will treat for 5-day course, last dose will be tomorrow ?Pulmonology/ICU has been following #Postobstructive pneumonia leukocytosis, elevated Pro-Adriano, improving on current antibiotics Continue Zosyn for total of 5-day course #Acute renal insufficiency?resolved Baseline appears to be 0.95, creatinine increased 1.31 but has since trended down, continue to encourage oral hydration Lisinopril was held, but BP 125/54 this a.m., monitor and can consider restarting #Generalized weakness/failure to thrive He does not want any further work-up or treatment for suspected advanced stage cancer Not having significant symptoms at this time, is interested in going to SNF on discharge Medically stable, awaiting placement #Microcytic anemia Has been present for several months Appears to be mixed chronic disease and iron deficiency based on iron panel and ferritin Iron supplementation started #Leukocytosis Likely secondary to postobstructive pneumonia Improving with Zosyn, will continue for 5-day course #History of CVA/HTN/HLD/carotid disease ? Continue with his home statin ? 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 She had esophageal cancer 4 years ago status post radiation and chemotherapy as well as laryngectomy #DM2 ? Hold his oral medications ? Reasonable to not have on sliding scale given goals of care and minimally elevated glucose #Hypothyroidism ? Stable ? Continue with Synthroid ? TSH was 6 but T4 is within normal limits DVT: Lovenox discontinued per patient preference, CODE STATUS changed to DNR comfort care Charges/Coding Visit Charges Inpatient E&M: 75075 Subs Hosp L2
--- NOTE | 2022-04-29 10:54 | CASEMGMT ---
Discharge Tank Setter Helper This data analyst report writer reached out to [facility]. Cristina from admissions declined patient due to staffing. BRIAN Hamilton notified. Linda ZELAYA Metallurgical Or Materials Technician
--- NOTE | 2022-04-29 11:16 | CASEMGMT ---
Pt screened with [facility] Palliative tool. Pt met criteria. Order received and sent referral via email.
--- NOTE | 2022-04-29 11:30 | CASEMGMT ---
Discharge Cardiac Rehabilitation Specialist This typewriter repairer sent referral to [facility]. Linda ZELAYA Pediatric Anesthesiologist
--- NOTE | 2022-04-29 11:38 | CASEMGMT ---
Social Work SW in to pt room to discuss discharge plan. SW informed pt [facility] unable to accept at this time. SW reviewed SNF list with pt to determine second choice. Pt rook time and thoroughly reviewed the list. Pt settled upon [facility] in [place]. BRIAN notified Kristen Fernandez, discharge assistant basketball coach, of pt choice. Kristen to send referral to [facility]. PLAN: [facility], pending acceptance and precert JAMAR Medina
--- NOTE | 2022-04-29 13:20 | CASEMGMT ---
Discharge Anthropologist Reached out to [facility] via Care Port for an update. Umberto ZELAYA Fiberglass Boat Parts Finisher
--- NOTE | 2022-04-29 15:51 | CASEMGMT ---
Social Work SW spoke to ZECHARIAH Gunn, at [facility] regarding pt referral. Luis A stated pt looks good clinically, however still reviewing bed availability. SW explained pt medically ready and needing accepting facility as soon as possible. Luis A stated should have answer soon on acceptance or denial. JAMAR Medina
--- NOTE | 2022-04-29 15:52 | CASEMGMT ---
Discharge Hooker Up This scientific technical writer talked with Luis A at [facility]. Clinically [facility] can take patient but Luis A is running insurance to make sure its in network. Luis A will reach out via Care Port. If Luis A does not reach out by morning he asked this scientific technical writer to call him. Linda ZELAYA Production Machinist
[2022-04-29] MEDS: Atorvastatin Calcium 40 MG Tablet PO (21:48)
[2022-04-29] MEDS: traZODone 50 MG Tablet PO (21:48)
[2022-04-29] MEDS: Tamsulosin HCl 0.4 MG Capsule PO (21:48)
[2022-04-29] MEDS: Menthol/Lanolin/Calamine/Znox 113 GM Tube 1 APPLIC TOPICAL (21:49)
[2022-04-30] VITALS (9 sets, daily range): BP systolic 112–139; BP diastolic 47–77; PULSE 77–82; RESP 16–18; TEMP 36.3–36.9; O2SAT 92–96
[2022-04-30] MEDS: Levothyroxine 112 MCG Tablet PO (05:46)
--- NOTE | 2022-04-30 07:47 | CASEMGMT ---
Discharge Bricklayer Luis A reached out from [facility]. Patient was accepted at [facility]. Pre-cert has been started. BRIAN Timmons notified. Linda ZELAYA Soil Conservation Teacher
[2022-04-30] MEDS: Pantoprazole Sodium 20 MG Tablet PO ×2 (08:11→21:36)
[2022-04-30] MEDS: Aspirin 81 MG TAB.CHEW PO (08:11)
[2022-04-30] MEDS: Glucerna Shake 120 ML LIQUID PO ×4 (08:12→21:35)
[2022-04-30] MEDS: NYSTATIN 500,000 UNIT/5 ML UDC 500000 UNIT PO ×4 (08:12→21:36)
[2022-04-30] MEDS: Menthol/Lanolin/Calamine/Znox 113 GM Tube 1 APPLIC TOPICAL ×2 (08:14→21:39)
--- NOTE | 2022-04-30 09:04 | PN.HOSP_ITS ---
Subjective Subjective DOS: 04/30/2022 CC: Generalized weakness Does continue to have generalized weakness, no chest pain, breathing and cough roughly unchanged. Awaiting placement Objective Data Objective Data Vital Signs: Vital Signs Temp Pulse Resp BP Pulse Ox O2 Del Method 97.4 F L 77 18 118/47 L 96 Room Air 04/30/22 08:24 04/30/22 08:24 04/30/22 08:24 04/30/22 08:24 04/30/22 08:24 04/30/22 08:24 Oxygen Delivery Method Room Air Weight: 104.6 kg Body Mass Index (BMI) 28.6 Intake & Output: Intake and Output for Last 24 Hours 04/28/22 04/29/22 04/30/22 23:59 23:59 23:59 Intake Total 1351.25 / 1351.25 1294 / 1294 50 / 50 Balance 1351.25 / 1351.25 1294 / 1294 50 / 50 Medical Nutrition Assessment Dietitian: Malnutrition Criteria Met Start: 04/25/22 10:00 Freq: Status: Active Protocol: Document 04/25/22 10:00 (Rec: 04/25/22 10:00 [id number]) Nutrition Malnutrition Evidence of Malnutrition Exists Yes Malnutrition (severe): Chronic Evidenced By Suboptimal Energy Intake ( Severe),Weight Loss (Severe) Clinical Problem Chronic Disease or Condition Related Malnutrition Etiology chronic, severe malnutrition related to inadequate energy intake Signs/Symptoms as evidenced by unintentional wt loss of 63.3#/23% wt loss x 1 year, estimated PO intake meeting <75% of estimated energy needs >3 months Status Active Problem Recommendation Dietitian Recommendations/Changes will adjust diet to CHO controlled (no calorie/protein restriction) given malnutrition; continue glucerna 120mL 4x/day for additional calories/protein if consumed. will consider liberalizing diet to regular if PO intake at meals is poor. Lab / Micro Data Result Diagrams: 04/29/22 04:23 04/29/22 04:23 Labs: Laboratory Results - last 24 hr 04/29/22 04:23: Diff Path Review Reviewed Micro: Microbiology 04/28/22 02:06 Stool Stool Occult Blood (RAYA) - Final Occult Blood Positive 04/25/22 06:00 Urine, Clean Catch Legionella Antigen - Final 04/25/22 06:00 Urine, Clean Catch Streptococcus pneumoniae Antigen (M - Final 04/25/22 01:01 Mucosa - Nasopharyngeal Respiratory Panel (PCR) - Final Rhythm Strip Rhythm Strip: Sinus Rhythm Rate: 80 Ectopy: None Physical Exam Const alert and no apparent distress Constitutional Narrative: Oriented HEENT normocephalic and head/scalp atraumatic Eyes Eyes Narrative: EOM grossly intact, anicteric Neck Neck Narrative: Has tracheostomy Resp normal respiratory effort Resp Narrative: Diminished at the bases Cardio regular rate and regular rhythm GI soft to palpation, non-tender and non-distended Extremity Extremity Narrative: No edema appreciated Neuro moves all extremities Neuro Narrative: No overt focal deficits appreciated Psych Psych Narrative: Cooperative Assessment & Plan Assessment/Plan (1) Declining functional status: PLAN: Plan #Persistent left upper lobe density likely cancer/failure to thrive/postobstructive pneumonia ? He would not like any further cancer investigation or treatment ? PT/OT-group home facility on discharge-medically appropriate for discharge ? Continue with Zosyn, leukocytosis is improving, last dose today ?Pulmonology/ICU has been following #Postobstructive pneumonia leukocytosis, elevated Pro-Adriano, improving on current antibiotics Continue Zosyn for total of 5-day course #Acute renal insufficiency?resolved Baseline appears to be 0.95, creatinine increased 1.31 but has since trended down, continue to encourage oral hydration Lisinopril was held, but BP 125/54 this a.m., monitor and can consider restarting #Generalized weakness/failure to thrive He does not want any further work-up or treatment for suspected advanced stage cancer Not having significant symptoms at this time, is interested in going to SNF on discharge Medically stable, awaiting placement #Microcytic anemia Has been present for several months Appears to be mixed chronic disease and iron deficiency based on iron panel and ferritin Iron supplementation started #Leukocytosis Likely secondary to postobstructive pneumonia Improving with Zosyn, last dose 04/30/2022 #History of CVA/HTN/HLD/carotid disease ? Continue with his home statin ? 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 She had esophageal cancer 4 years ago status post radiation and chemotherapy as well as laryngectomy #DM2 ? Hold his oral medications ? Reasonable to not have on sliding scale given goals of care and minimally elevated glucose #Hypothyroidism ? Stable ? Continue with Synthroid ? TSH was 6 but T4 is within normal limits DVT: Lovenox discontinued per patient preference, CODE STATUS changed to DNR comfort care Charges/Coding Visit Charges Inpatient E&M: 93550 Subs Hosp L1
[2022-04-30] MEDS: Ferrous Sulfate 325 MG Tablet PO (11:50)
--- NOTE | 2022-04-30 15:37 | CASEMGMT ---
Social Work SW met with pt and informed that [facility] can accept pt and precert is pending. Pt states that his son now states he would like pt to go to [facility]. SW inquired with pt his wishes as earlier in the week he stated he did not want to go to [facility]. Pt states that he wants what his son wants and his son wants [facility]. With pt permission phone call to pt son who confirms he wants pt to go to [facility] and not to [facility]. SW presented option of going to [facility] for Skilled care and then transferring to [facility] from there. Son declines and states he would like pt to go to [facility] from [facility] and he has spoke to Allen at [facility] about this. Son would like home health therapy set up for pt at [facility]. BRIAN placed call to Allen at [facility] who confirms they can accept pt. Plan of Care papers need completed prior to pt admission to [facility] and Allen states he faxed these to PCP Dr. Barclay. When they papers are returned, pt can admit. Clinicals faxed to [facility]. BRIAN placed call to Dr. Barclay's office and left VM inquiring if he would be willing to fill the Plan of Care papers out and if he could do so for admission to [facility] tomorrow. Will await return call. Plan: [facility], pending Plan of Care paperwork from PCP. JAMAR Layton
[2022-04-30] MEDS: Tamsulosin HCl 0.4 MG Capsule PO (21:35)
[2022-04-30] MEDS: traZODone 50 MG Tablet PO (21:36)
[2022-04-30] MEDS: Atorvastatin Calcium 40 MG Tablet PO (21:36)
[2022-05-01 02:10] VITALS: BP 147/59; PULSE 82; RESP 18; TEMP 36.6; O2SAT 94
[2022-05-01] MEDS: Levothyroxine 112 MCG Tablet PO (06:03)
[2022-05-01 06:57] VITALS: O2SAT 94
--- NOTE | 2022-05-01 07:06 | PCM.PN.HOSP ---
Subjective Subjective DOS: 05/01/2022 CC: Follow-up shortness of breath Reports breathing and cough are roughly the same, has continued to have some generalized weakness. His currently awaiting placement, reports he has been eating did not voice any other complaints this morning Objective Data Objective Data Vital Signs: Vital Signs Temp Pulse Resp BP Pulse Ox O2 Del Method 97.8 F 82 18 147/59 H 94 Room Air 05/01/22 02:10 05/01/22 02:10 05/01/22 02:10 05/01/22 02:10 05/01/22 06:57 05/01/22 06:57 Oxygen Delivery Method Room Air Weight: 104.8 kg Body Mass Index (BMI) 28.6 Intake & Output: Intake and Output for Last 24 Hours 04/29/22 04/30/22 05/01/22 23:59 23:59 23:59 Intake Total 1294 / 1294 1250 / 1450 400 / 400 Balance 1294 / 1294 1250 / 1450 400 / 400 Medical Nutrition Assessment Dietitian: Malnutrition Criteria Met Start: 04/25/22 10:00 Freq: Status: Active Protocol: Document 04/25/22 10:00 (Rec: 04/25/22 10:00 [id number]) Nutrition Malnutrition Evidence of Malnutrition Exists Yes Malnutrition (severe): Chronic Evidenced By Suboptimal Energy Intake ( Severe),Weight Loss (Severe) Clinical Problem Chronic Disease or Condition Related Malnutrition Etiology chronic, severe malnutrition related to inadequate energy intake Signs/Symptoms as evidenced by unintentional wt loss of 63.3#/23% wt loss x 1 year, estimated PO intake meeting <75% of estimated energy needs >3 months Status Active Problem Recommendation Dietitian Recommendations/Changes will adjust diet to CHO controlled (no calorie/protein restriction) given malnutrition; continue glucerna 120mL 4x/day for additional calories/protein if consumed. will consider liberalizing diet to regular if PO intake at meals is poor. Lab / Micro Data Result Diagrams: 04/29/22 04:23 04/29/22 04:23 Micro: Microbiology 04/28/22 02:06 Stool Stool Occult Blood (RAYA) - Final Occult Blood Positive 04/25/22 06:00 Urine, Clean Catch Legionella Antigen - Final 04/25/22 06:00 Urine, Clean Catch Streptococcus pneumoniae Antigen (M - Final 04/25/22 01:01 Mucosa - Nasopharyngeal Respiratory Panel (PCR) - Final Rhythm Strip Rhythm Strip: Sinus Rhythm Rate: 80 Ectopy: None Physical Exam Const alert and no apparent distress HEENT normocephalic and head/scalp atraumatic HEENT Narrative: Tracheostomy Eyes Eyes Narrative: EOM grossly intact, anicteric Neck Neck Narrative: Has tracheostomy Resp normal respiratory effort Cardio regular rate and regular rhythm GI non-distended Extremity Extremity Narrative: No edema appreciated Neuro moves all extremities Neuro Narrative: No overt focal deficits appreciated Psych Psych Narrative: Cooperative Assessment & Plan Assessment/Plan (1) Declining functional status: PLAN: Plan #Persistent left upper lobe density likely cancer/failure to thrive/postobstructive pneumonia ? He would not like any further cancer investigation or treatment ? [facility] on discharge-medically appropriate for discharge ? S/p Zosyn. #Postobstructive pneumonia leukocytosis, elevated Pro-Adriano, improving on current antibiotics S/p Zosyn, denies any changes in shortness of breath #Acute renal insufficiency?resolved Baseline appears to be 0.95, creatinine increased 1.31 but has since trended down, continue to encourage oral hydration Lisinopril was held but blood pressure has been elevated again and given it is resolved we will resume #Generalized weakness/failure to thrive He does not want any further work-up or treatment for suspected advanced stage cancer Not having significant symptoms at this time, is interested in going to SNF on discharge Medically stable, awaiting placement #Microcytic anemia Has been present for several months Appears to be mixed chronic disease and iron deficiency based on iron panel and ferritin Iron supplementation started #Leukocytosis Likely secondary to postobstructive pneumonia Improving with Zosyn, last dose 04/30/2022 #History of CVA/HTN/HLD/carotid disease ? Continue with his home statin ? 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 She had esophageal cancer 4 years ago status post radiation and chemotherapy as well as laryngectomy #DM2 ? Hold his oral medications ? Reasonable to not have on sliding scale given goals of care and minimally elevated glucose #Hypothyroidism ? Stable ? Continue with Synthroid ? TSH was 6 but T4 is within normal limits DVT: Lovenox discontinued per patient preference, CODE STATUS changed to DNR comfort care Charges/Coding Visit Charges Inpatient E&M: 64540 Subs Hosp L1
[2022-05-01 08:00] VITALS: BP 153/92; PULSE 96; RESP 18; TEMP 36.6; O2SAT 94
[2022-05-01 08:20] VITALS: BP 153/92; PULSE 96; RESP 18; TEMP 36.6; O2SAT 94
[2022-05-01] MEDS: NYSTATIN 500,000 UNIT/5 ML UDC 500000 UNIT PO ×2 (08:31→13:25)
[2022-05-01] MEDS: Glucerna Shake 120 ML LIQUID PO ×2 (08:32→13:25)
[2022-05-01] MEDS: Aspirin 81 MG TAB.CHEW PO (08:32)
[2022-05-01] MEDS: Pantoprazole Sodium 20 MG Tablet PO (08:32)
[2022-05-01] MEDS: Lisinopril 10 MG Tablet PO (08:32)
[2022-05-01] MEDS: Menthol/Lanolin/Calamine/Znox 113 GM Tube 1 APPLIC TOPICAL (08:32)
--- NOTE | 2022-05-01 08:45 | CASEMGMT ---
Addendum entered by Shanelle Lindo 05/01/22 14:07: Social Work SW spoke with Allen at [facility] who states pt can admit but family has not yet moved furniture in. Phone call to pt son who states he is moving furniture into pt room at this time and will be over to hospital to pick pt up for discharge in a few hours once room at [facility] is arranged. Physician notified and agreeable to discharge today. Nursing notified. JAMAR Khan Original Note: Social Work SW placed call to Allen at [facility]. Plan of Care has been returned by pt PCP to [facility]. Allen to reach out to pt son to get room set up today at [facility] so pt can discharge today. Allen to call this SW with final confirmation that pt can be accepted today. BRIAN updated pt on discharge plan and he is agreeable. Pt requesting home health therapy. RNCM updated. Plan: [facility], when room is ready JAMAR Khan
--- NOTE | 2022-05-01 10:10 | CASEMGMT ---
Addendum entered by Britta Mullen 05/01/22 11:02: Marquita confirmed HHC SOC will be Wednesday and therapist to call pt re: time they will arrive. Pt is aware. Pt asked for STEFANIA NASCIMENTO to call his son re: C set up. Call placed to son, Pee, at this time. He was made aware pt choice [facility] as 1st choice for HHC, they have accepted him, and SOC slated for Wednesday. He states is agreeable to this and denies having any further needs. He is aware plan is for discharge from [facility] today and states he will be in later today and will transport him there. Addendum entered by Britta Mullen 05/01/22 10:44: Call received back from Marqu[facility]. They are able to accept pt, but pt's PCP is Dr Barclay, who requires an office visit prior to following pt's for C. Call placed to nurse Cristina @ Dr Barclay's office. She states Dr Barclay is out of the office today, but d/t Dr Barclay just doing Plan of Care paperwork for pt to go to [facility], she is approving for pt to have HHC without an office visit with Dr Barclay. She states she will notify Dr Barclay of same as well. Call placed back to [facility] and she was made aware of above. She states she anticipates SOC to be Wednesday and will notify this RN CM once this is confirmed. Pt made aware [facility] able to accept him w/anticipated SOC on Wednesday. Original Note: STEFANIA NASCIMENTO NOTE: Per Dr Griffith, plan is for discharge today. STEFANIA NASCIMENTO informed pt would like [facility] @ [facility]. STEFANIA NASCIMENTO to room. Introduced self and role. Pt sitting up in chair in room, alert/oriented. Pt confirms he does want HHC. A list of C providers including quality and resource use data and consistent with the patient?s preferred geographic region, medical needs, and insurance network were provided from the [employer] Guide. Pt's first choice is [facility]. Call placed to [facility] and VM left re: referral and that pt is discharging today. Awaiting response. Order for HHC: PT/OT has been placed. Pt denies having any further discharge planning needs at this time. Mini BSN RN CM
[2022-05-01] MEDS: Ferrous Sulfate 325 MG Tablet PO (11:36)
--- NOTE | 2022-05-01 12:53 | CASEMGMT ---
Discharge Rubber Goods Finisher Luis A from [facility] reached out. Insurance is requesting a peer- to-peer for patient. Phone # is [phone] option 5. [facility] # [id number]. Deadline is 05/01/2022 at 2:30pm. BRIAN Mckeon DC Unit Nurse
[2022-05-01 14:00] VITALS: BP 122/58; PULSE 68; RESP 18; TEMP 36.5; O2SAT 94
--- NOTE | 2022-05-01 14:05 | CASEMGMT ---
Discharge Tractor Operator Helper This signwriter called Luis A at [facility]. Notified Luis A to cancel admission [id number] will not be done and patient will be going to [facility] Knott DC Transition Rn
[2022-05-01 14:11] VITALS: BP 122/58; PULSE 68; RESP 18; TEMP 36.5; O2SAT 94
--- NOTE | 2022-05-01 14:12 | PCM.DC ---
Discharge Instructions Diet Discharge Diet: No restrictions Activity Discharge Activity: Return to Normal Activity Follow Up Care Test Results: Test results from this visit will be discussed in further detail at your follow-up appointment, if applicable. Discharge Plan Admission Admit Date/Time: 04/24/22 23:52 Primary Reason for Your Visit: Weakness Attending Provider: Aleena Griffith Primary Care Provider: Ash Barclay Chi Consulting Providers: Clifton Olson ; Martha Dutton ; Marcello Coyle Instructions Patient Instructions: ED Weakness (Uncertain Cause), ED Fall Prevention Additional Instructions / Restrictions: *Please take this with you to your next doctors appointment* -You have been started on iron supplementation due to anemia, please continue this on discharge. ?Your metformin was held during admission, it is reasonable to continue to hold this. ? Your zolpidem had been held on admission, please discuss this with your physician regarding holding or continuing this on an outpatient basis, he were started on trazodone during admission however, can continue this on discharge ?You are on aspirin, statin, lisinopril, Synthroid and, tamsulosin. This has been continued -You were also started on Protonix 20 mg twice daily ?It is recommended by the dietitian use I will while you are hospitalized to eat 1250-9712 abril a day, 83 to 100 g of protein a day, and 2075 mL of fluid per day. Additionally please increase the protein in your diet. -Your lisinopril dose has been decreased and you have tolerated this well. Would advise to continue this dose and follow-up with your primary care physician -All newly prescribed medications have been sent to [facility] retail pharmacy -Please call your primary care provider's office upon discharge to schedule a hospital follow up within 1 week. -For any concerning signs or symptoms please call 911 or proceed to the nearest emergency department Discharge Orders/Prescriptions Prescriptions: New trazodone 50 mg Tablet 50 mg PO QHS 30 Days Qty: 30 0RF pantoprazole 20 mg Tablet,Delayed Release (Dr/Ec) 20 mg PO BID 30 Days Qty: 60 0RF ferrous sulfate [FeroSul] 325 mg (65 mg iron) Tablet 325 mg PO DAILY 30 Days Qty: 30 0RF lisinopril 10 mg Tablet 10 mg PO DAILY 30 Days Qty: 30 0RF Continued atorvastatin 80 MG tablet 40 mg PO QHS tamsulosin 0.4 MG capsule 0.4 mg PO QHS aspirin 81 MG tablet,chewable 81 mg PO DAILY@0800 acetaminophen 325 MG tablet 650 mg PO Q6H PRN PRN (Reason: Non-cardiac pain (mod-severe)) 0RF levothyroxine 112 mcg tablet 112 mcg PO DAILY Label Comments: TAKE 1 TABLET BY MOUTH ONCE DAILY Held zolpidem 10 mg tablet 10 mg PO QHS Hold Instructions: Resume on 05/06/22. Please discuss with your primary care physician prior to resuming this as at times can cause confusion and falls. Discontinued metformin 500 MG tablet 500 mg PO DAILY Label Comments: Diabetes lisinopril [Zestril] 30 MG tablet 30 mg PO DAILY Label Comments: BLOOD PRESSURE Referrals / Follow Up: Ash Barclay Chi, MD [Primary Care Provider] - Within 1 Week Disposition Disposition (needs filled in before D/C Order can be placed): Assisted Living
--- NOTE | 2022-05-01 14:21 | PCM.DC.SUM ---
Providers Date of Admission: 04/24/22 Date of Discharge: 05/01/22 Primary Care Physician: Dr. Ash Barclay MD Consultations 04/25/22 00:46 Consult: Patrol [facility] / Pulmonary Medicine Routine Consulting Provider: Clifton Olson Reason for Consult: Lung mass, mets to liver EMERGENT Consult: No MD Notified: Yes Date Notified: 04/25/22 Time Notified: 00:20 Method of Notification: Text Reason For Visit: FTT ADULT, ? PULM MASS/PNA Diagnosis Discharge Diagnosis (1) Declining functional status: Status: Acute Code(s): R53.81 - Other malaise Plan #Persistent left upper lobe density likely cancer/failure to thrive/postobstructive pneumonia #Postobstructive pneumonia #Acute renal insufficiency?resolved #Generalized weakness/failure to thrive #Microcytic anemia #Leukocytosis #History of CVA/HTN/HLD/carotid disease #History of esophageal cancer status post excision #DM2 #Hypothyroidism Medications at Discharge Home Medications aspirin 81 mg chewable tablet 81 mg PO DAILY@0800 02/22/18 atorvastatin 80 mg tablet 40 mg PO QHS 02/22/18 tamsulosin 0.4 mg capsule 0.4 mg PO QHS 02/22/18 acetaminophen 325 mg tablet 650 mg PO Q6H PRN PRN Non-cardiac pain (mod-severe) 02/22/19 levothyroxine 112 mcg tablet 112 mcg PO DAILY 04/24/22 zolpidem 10 mg tablet 10 mg PO QHS 04/24/22 ferrous sulfate 325 mg (65 mg iron) tablet (FeroSul) 325 mg PO DAILY 30 days #30 tabs 05/01/22 lisinopril 10 mg tablet 10 mg PO DAILY 30 days #30 tabs 05/01/22 pantoprazole 20 mg tablet,delayed release 20 mg PO BID 30 days #60 tabs 05/01/22 trazodone 50 mg tablet 50 mg PO QHS 30 days #30 tabs 05/01/22 Hospital Course Summary of Care Provided Minutes Spent on Discharge: 32 Hospital Course: Mr. 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, HTN, HLD, Hx Throat CA s/p surgical intervention as well as radiation/chemotherapy w/ prior trach/reversal, BPH, Diabetes mellitus type II, Hypothyroidism who presented to the [facility] ED on 04/24/22 with history of recent ongoing progressive decline with family decision to transition to assisted living which is been in process with family recently visiting several assisted living facilities; however, the evening of admission son checked in on the patient and he was significantly debilitated, unable to actively take care of himself with notable debility and inability to ambulate well in his home prompting transition to the ED for evaluation. CT on admission noted a mass of the upper lobe of the left lung, pulmonology has been consulted and discussed with patient about goals of therapy and he was made DNR/DNI and did not want to pursue further work-up or treatment. Given his lack of significant symptoms it was deemed appropriate that he go to SNF for rehab on discharge with outpatient palliative versus hospice. Also given status and lab abnormalities on admission as well as CT cannot rule out postobstructive pneumonia, he was placed on Zosyn with plans for 5 days of treatment and did improve on this. Waited several days for residential facility, was doing fairly well with PT and ultimately made the decision to go back to assisted living. Discharged to assisted living in stable condition. Discharge instructions provided for patient are as follows: -You have been started on iron supplementation due to anemia, please continue this on discharge. ?Your metformin was held during admission, it is reasonable to continue to hold this. ? Your zolpidem had been held on admission, please discuss this with your physician regarding holding or continuing this on an outpatient basis, he were started on trazodone during admission however, can continue this on discharge ?You are on aspirin, statin, lisinopril, Synthroid and, tamsulosin. This has been continued -You were also started on Protonix 20 mg twice daily ?It is recommended by the dietitian use I will while you are hospitalized to eat 3311-0960 abril a day, 83 to 100 g of protein a day, and 2075 mL of fluid per day. Additionally please increase the protein in your diet. -Your lisinopril dose has been decreased and you have tolerated this well. Would advise to continue this dose and follow-up with your primary care physician -All newly prescribed medications have been sent to [facility] retail pharmacy -Please call your primary care provider's office upon discharge to schedule a hospital follow up within 1 week. -For any concerning signs or symptoms please call 911 or proceed to the nearest emergency department Physical Exam Const alert and no apparent distress HEENT normocephalic and head/scalp atraumatic HEENT Narrative: Tracheostomy Eyes Eyes Narrative: EOM grossly intact, anicteric Neck Neck Narrative: Has tracheostomy Resp normal respiratory effort Cardio regular rate and regular rhythm GI non-distended Extremity Extremity Narrative: No edema appreciated Neuro moves all extremities Neuro Narrative: No overt focal deficits appreciated Psych Psych Narrative: Cooperative Medical Records Data Medical Nutrition Assessment Dietitian: Malnutrition Criteria Met Start: 04/25/22 10:00 Freq: Status: Active Protocol: Document 04/25/22 10:00 (Rec: 04/25/22 10:00 [id number]) Nutrition Malnutrition Evidence of Malnutrition Exists Yes Malnutrition (severe): Chronic Evidenced By Suboptimal Energy Intake ( Severe),Weight Loss (Severe) Clinical Problem Chronic Disease or Condition Related Malnutrition Etiology chronic, severe malnutrition related to inadequate energy intake Signs/Symptoms as evidenced by unintentional wt loss of 63.3#/23% wt loss x 1 year, estimated PO intake meeting <75% of estimated energy needs >3 months Status Active Problem Recommendation Dietitian Recommendations/Changes will adjust diet to CHO controlled (no calorie/protein restriction) given malnutrition; continue glucerna 120mL 4x/day for additional calories/protein if consumed. will consider liberalizing diet to regular if PO intake at meals is poor. Weight / BMI Weight Weight: 104.8 kg Body Mass Index (BMI) 28.6 ABG / Lab / Microbiology Data Result Diagrams: 04/29/22 04:23 04/29/22 04:23 Microbiology: Microbiology 04/28/22 02:06 Stool Stool Occult Blood (RAYA) - Final Occult Blood Positive 04/25/22 06:00 Urine, Clean Catch Legionella Antigen - Final 04/25/22 06:00 Urine, Clean Catch Streptococcus pneumoniae Antigen (M - Final 04/25/22 01:01 Mucosa - Nasopharyngeal Respiratory Panel (PCR) - Final D/C Instructions Discharge Diet: No restrictions Meaningful Use Info Meaningful Use Diagnoses (Choose all that apply): None applicable Discharge Plan Admission Admit Date/Time: 04/24/22 23:52 Primary Reason for Your Visit: Weakness Attending Provider: Aleena Griffith Primary Care Provider: Ash Barclay Chi Consulting Providers: Clifton Olson ; Martha Dutton ; Marcello Coyle Instructions Patient Instructions: ED Weakness (Uncertain Cause), ED Fall Prevention Additional Instructions / Restrictions: *Please take this with you to your next doctors appointment* -You have been started on iron supplementation due to anemia, please continue this on discharge. ?Your metformin was held during admission, it is reasonable to continue to hold this. ? Your zolpidem had been held on admission, please discuss this with your physician regarding holding or continuing this on an outpatient basis, he were started on trazodone during admission however, can continue this on discharge ?You are on aspirin, statin, lisinopril, Synthroid and, tamsulosin. This has been continued -You were also started on Protonix 20 mg twice daily ?It is recommended by the dietitian use I will while you are hospitalized to eat 7390-1154 abril a day, 83 to 100 g of protein a day, and 2075 mL of fluid per day. Additionally please increase the protein in your diet. -Your lisinopril dose has been decreased and you have tolerated this well. Would advise to continue this dose and follow-up with your primary care physician -All newly prescribed medications have been sent to [facility] retail pharmacy -Please call your primary care provider's office upon discharge to schedule a hospital follow up within 1 week. -For any concerning signs or symptoms please call 911 or proceed to the nearest emergency department Discharge Orders/Prescriptions Prescriptions: New trazodone 50 mg Tablet 50 mg PO QHS 30 Days Qty: 30 0RF pantoprazole 20 mg Tablet,Delayed Release (Dr/Ec) 20 mg PO BID 30 Days Qty: 60 0RF ferrous sulfate [FeroSul] 325 mg (65 mg iron) Tablet 325 mg PO DAILY 30 Days Qty: 30 0RF lisinopril 10 mg Tablet 10 mg PO DAILY 30 Days Qty: 30 0RF Continued atorvastatin 80 MG tablet 40 mg PO QHS tamsulosin 0.4 MG capsule 0.4 mg PO QHS aspirin 81 MG tablet,chewable 81 mg PO DAILY@0800 acetaminophen 325 MG tablet 650 mg PO Q6H PRN PRN (Reason: Non-cardiac pain (mod-severe)) 0RF levothyroxine 112 mcg tablet 112 mcg PO DAILY Label Comments: TAKE 1 TABLET BY MOUTH ONCE DAILY Held zolpidem 10 mg tablet 10 mg PO QHS Hold Instructions: Resume on 05/06/22. Please discuss with your primary care physician prior to resuming this as at times can cause confusion and falls. Discontinued metformin 500 MG tablet 500 mg PO DAILY Label Comments: Diabetes lisinopril [Zestril] 30 MG tablet 30 mg PO DAILY Label Comments: BLOOD PRESSURE Referrals / Follow Up: Ash Barclay Chi, MD [Primary Care Provider] - Within 1 Week Disposition Disposition (needs filled in before D/C Order can be placed): Assisted Living Charges/Coding Visit Charges Inpatient E&M: 62876 Subs Hosp L2
== END 2022-05-01 17:12 | disposition home or self-care (01) | DRG 193 ==
LOC: ED 23:49 → MS3 04-25 00:12
PROVIDERS: Family Medicine; Admitting Provider Family Medicine; Emergency Provider Emergency Medicine; PCP Family Medicine Geriatric Medicine; Visit Provider Internal Medicine
DX: J18.9 Pneumonia, unspecified organism (principal); E43 Unspecified severe protein-calorie malnutrition; I69.359 Hemiplegia and hemiparesis following cerebral infarction affecting unspecified side; C34.12 Malignant neoplasm of upper lobe, left bronchus or lung; C78.7 Secondary malignant neoplasm of liver and intrahepatic bile duct; R62.7 Adult failure to thrive; E11.22 Type 2 diabetes mellitus with diabetic chronic kidney disease; D50.9 Iron deficiency anemia, unspecified; E87.6 Hypokalemia; E03.9 Hypothyroidism, unspecified; I12.9 Hypertensive chronic kidney disease with stage 1 through stage 4 chronic kidney disease, or unspecified chronic kidney disease; E78.5 Hyperlipidemia, unspecified; N18.2 Chronic kidney disease, stage 2 (mild); Z85.01 Personal history of malignant neoplasm of esophagus; Z79.84 Long term (current) use of oral hypoglycemic drugs; Z92.3 Personal history of irradiation; R59.1 Generalized enlarged lymph nodes; R53.1 Weakness; Z79.82 Long term (current) use of aspirin; Z66 Do not resuscitate; Z68.29 Body mass index [BMI] 29.0-29.9, adult; N40.0 Benign prostatic hyperplasia without lower urinary tract symptoms; Z79.899 Other long term (current) drug therapy; Z79.890 Hormone replacement therapy; Z87.891 Personal history of nicotine dependence; Z92.21 Personal history of antineoplastic chemotherapy
CPT/HCPCS: 36415; 71045; 71260; 80048; 80053; 80076; 81001; 82274; 82728; 82962; 83540; 83550; 83735; 84145; 84439; 84443; 84484; 85025; 87426; 87449; 87633; 87641; 92610; 93005; 97110; 97116; 97162; 97166; 97530; 97535; 97802; 97803; 99285; J7030; J7040; J7050; Q9957; Q9967; A4216

== ENCOUNTER 2022-05-08 09:12 | Emergency (ER) | payer MEDICARE, SELFPAY ==
[2022-05-08 09:15] VITALS: BP 119/50; PULSE 66; RESP 15; TEMP 35.8; O2SAT 92; BMI 31.1
--- NOTE | 2022-05-08 10:11 | EX.ED.DYSGE1 ---
HPI History of Present Illness Chief Complaint: Weakness Informant: patient Onset/Context/Timing Onset: Yesterday Context: Gradual Onset Timing: Continuous Quality: Aching Location: Low back Worsened by: Standing, walking Relieved by: Certain positions Narrative Narrative: Patient presents with pain in his low back and general weakness that has been getting worse since yesterday. Patient states his pain is worse with standing and walking. Patient states it is better in certain positions. Patient also admits to some increased swelling in his lower legs. Patient states he has been having some weakness in his legs. Patient admits to some subjective chills but denies any fevers. Patient denies any pain in his chest. Patient denies any shortness of breath. Patient denies any nausea or vomiting. 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 Home Medications aspirin 81 mg chewable tablet 81 mg PO DAILY@0800 02/22/18 [History Last Taken 02/19/19] atorvastatin 80 mg tablet 80 mg PO QHS 02/22/18 [History Last Taken 02/19/19] tamsulosin 0.4 mg capsule 0.4 mg PO QHS 02/22/18 [History Last Taken 02/19/19] acetaminophen 325 mg tablet 650 mg PO Q6H PRN PRN Non-cardiac pain (mod-severe) 02/22/19 [Rx Last Taken Unknown] levothyroxine 112 mcg tablet 112 mcg PO DAILY 04/24/22 [History Last Taken Unknown] zolpidem 10 mg tablet 10 mg PO QHS 04/24/22 [History Last Taken Unknown] ferrous sulfate 325 mg (65 mg iron) tablet (FeroSul) 325 mg PO DAILY 30 days #30 tabs 05/01/22 [Rx Last Taken Unknown] lisinopril 10 mg tablet 10 mg PO DAILY 30 days #30 tabs 05/01/22 [Rx Last Taken Unknown] pantoprazole 20 mg tablet,delayed release 20 mg PO BID 30 days #60 tabs 05/01/22 [Rx Last Taken Unknown] trazodone 50 mg tablet 50 mg PO QHS 30 days #30 tabs 05/01/22 [Rx Last Taken Unknown] hydrochlorothiazide 12.5 mg tablet 12.5 mg PO DAILY #14 tabs 05/08/22 [Rx Last Taken Unknown] oseltamivir 75 mg capsule 75 mg PO BID #10 CAPSULES 05/08/22 [Rx Last Taken Unknown] Allergy/AdvReac Type Severity Reaction Status Date / Time No Known Allergies Allergy Verified 04/25/22 00:52 Family History Mother Heart disease Family History other Surgical History Status post tracheostomy Social History household members: none Smoking Status: Former smoker alcohol intake: never substance use type: does not use ROS ROS ED Constitutional Constitutional ED: Reports chills; Denies fever(s) Eyes Eyes: Denies blurry vision or change in vision ENT ENT ED: Denies rhinorrhea or sore throat Cardiovascular Cardiovascular: Denies chest pain or palpitations Respiratory/Chest Respiratory/Chest: Denies cough or dyspnea Gastrointestinal Gastrointestinal: Denies nausea or vomiting Genitourinary Genitourinary ED: Denies dysuria or hematuria Musculoskeletal Musculoskeletal: Reports back pain; Denies neck pain Integumentary Denies abscess or rash Neurologic Neurologic: Reports weakness; Denies headache(s) Allergic/Immunologic Allergic/Immunologic ED: Denies mouth swelling or urticaria EXAM Physical Exam Const Vital Signs: 05/08/22 09:15 05/08/22 10:38 05/08/22 10:42 Temperature 96.5 F L Temperature Source Temporal Pulse Rate 66 66 Respiratory Rate 15 12 Respiratory Effort Normal Non-Labored Blood Pressure 119/50 L 136/62 H Blood Pressure Mean 73 86 Pulse Ox 92 100 Oxygen Delivery Method Room Air Room Air 05/08/22 11:41 Temperature Temperature Source Pulse Rate 67 Respiratory Rate 17 Respiratory Effort Blood Pressure 121/67 H Blood Pressure Mean 85 Pulse Ox 100 Oxygen Delivery Method Room Air Positive well nourished and well developed General Appearance ED: well developed and NAD HEENT Reports moist mucous membranes Neck supple and no JVD Resp normal respiratory effort Auscultation: diminished lung sounds diffuse Cardio regular rate, regular rhythm and no murmurs GI normal to inspection, nondistended, normoactive bowel sounds and non-tender Palpation: soft Back/Spine Back/Spine Narrative: There is tenderness over the right lumbar paraspinal muscles. Range of motion was limited in all motions of the lumbar spine secondary to pain. Extremity normal to inspection General Extremety ED: Yes edema; Negative for tenderness General Extremity: edema bilateral lower extremity Details: moderate Neuro oriented x3, CN's II-XII intact bilaterally and no sensory deficits noted Sensorium / Orientation: alert Motor Exam: strength 5/5 throughout Psych mental status grossly normal Skin no rashes or lesions noted MDM MDM MDM Narrative Medical decision making narrative: EKG was obtained. On my interpretation, it showed a normal sinus rhythm with a sinus arrhythmia with a rate of 69. [place] interval, QRS interval, and QTc intervals were all normal. [place] was normal. There are no acute ST or T wave changes. CBC shows a white blood cell count of 11.8. Hemoglobin was 10.3 hematocrit was 31.9. Platelets were normal. PT was INR were within normal limits. Comprehensive metabolic profile was essentially within normal limits. High-sensitivity troponin was normal. BNP was normal at 83. Lactate was normal at 1.3. Urinalysis shows leukocyte esterases of 25 with 10-25 red blood cells and 10-25 white blood cells. There is 1+ bacteria. Occult blood was 250. Urine culture was ordered. COVID-19 rapid antigen was obtained and was negative. Influenza A and influenza B swabs were obtained. Influenza A was negative. Influenza B was positive. X-rays of the lumbar spine were obtained. There are 2 views. On my interpretation, there is no acute fracture or spondylolisthesis. There are degenerative changes noted. Radiologist also interpreted the x-rays and agrees. PA and lateral chest x-ray was obtained. There are 2 views. On my interpretation, there is no acute cardiopulmonary process. The left lower lobe pneumonia is improved. There is a stable masslike density in the left upper lobe. This is unchanged from previous x-rays. Radiologist also interpreted the x-rays and agrees. Patient was advised of his findings. Patient was given a dose of Tamiflu here. Patient was given a prescription for Tamiflu. Patient was instructed to take Tylenol as needed for any pain or fever. Patient was given a prescription for a short course of hydrochlorothiazide to help with his peripheral edema. Patient was instructed to keep his legs elevated. Patient requested help getting a hospital bed. clothing trades workers was consulted to try to help with this. Patient and family were instructed to follow-up with his primary care physician in 5 to 7 days. Patient and family understood and were agreeable with the plan. All questions were answered. Lab Data Attestation: I reviewed the patient's lab results. Labs: Laboratory Results - last 24 hr 05/08/22 05/08/22 05/08/22 10:25 10:25 10:25 WBC 11.8 H RBC 4.05 L Hgb 10.3 L Hct 31.9 L MCV 78.8 L MCH 25.4 L MCHC 32.3 RDW Std Deviation 51.3 H RDW Coeff of [place] 18.2 H Plt Count 274 MPV 10.3 Immature Gran % (Auto) 0.600 Neut % (Auto) 73.3 H Lymph % (Auto) 12.6 L [place] % (Auto) 12.2 H Eos % (Auto) 0.7 Baso % (Auto) 0.6 Absolute Neuts (auto) 8.6 H Absolute Lymphs (auto) 1.48 Nucleated RBC % 0 PT 15.4 H INR 1.3 Sodium 141 Potassium 4.2 Chloride 106 Carbon Dioxide 29.0 Anion Gap 6 BUN 19 H Creatinine 0.93 Estim Creat Clear Calc 68.02 Est GFR (MDRD) Af Amer 99 Est GFR (MDRD) Non-Af 82 BUN/Creatinine Ratio 20.4 H Glucose 93 Lactic Acid Calcium 8.9 Total Bilirubin 0.70 AST 41 H ALT 20 Alkaline Phosphatase 189 H Troponin I High Sens 14 B-Natriuretic Peptide Total Protein 6.3 L Albumin 2.2 L Globulin 4.1 Albumin/Globulin Ratio 0.5 L Urine Color Urine Clarity Urine pH Ur Specific [place] Urine Protein Urine Glucose (UA) Urine Ketones Urine Occult Blood Urine Nitrite Urine Bilirubin Urine Urobilinogen Ur Leukocyte Esterase Urine RBC Urine WBC Ur Squamous Epith Cells Urine Bacteria Urine Mucus 05/08/22 05/08/22 05/08/22 10:25 10:25 11:00 WBC RBC Hgb Hct MCV MCH MCHC RDW Std Deviation RDW Coeff of [place] Plt Count MPV Immature Gran % (Auto) Neut % (Auto) Lymph % (Auto) [place] % (Auto) Eos % (Auto) Baso % (Auto) Absolute Neuts (auto) Absolute Lymphs (auto) Nucleated RBC % PT INR Sodium Potassium Chloride Carbon Dioxide Anion Gap BUN Creatinine Estim Creat Clear Calc Est GFR (MDRD) Af Amer Est GFR (MDRD) Non-Af BUN/Creatinine Ratio Glucose Lactic Acid 1.3 Calcium Total Bilirubin AST ALT Alkaline Phosphatase Troponin I High Sens B-Natriuretic Peptide 85.8 Total Protein Albumin Globulin Albumin/Globulin Ratio Urine Color Yellow Urine Clarity Clear Urine pH 5.0 Ur Specific [place] 1.025 Urine Protein 30 H Urine Glucose (UA) Normal Urine Ketones 5 H Urine Occult Blood 250 H Urine Nitrite Negative Urine Bilirubin Negative Urine Urobilinogen Normal Ur Leukocyte Esterase 25 H Urine RBC 10-25 SEEN Urine WBC 10-25 SEEN Ur Squamous Epith Cells 0 SEEN Urine Bacteria 1+ Urine Mucus 0 SEEN Radiography Diagnostic Testing: Clinical Impression(s) from Imaging Studies Chest X-Ray 05/08/22 11:00 IMPRESSION: Stable masslike density involving the left upper lobe. Improving left lower lobe pneumonia/atelectasis Electronically Signed: Rickey Cadena MD at 11:49 EDT , Lumbar Spine X-Ray 05/08/22 11:00 IMPRESSION: Prominent diffuse vertebral body osteophytosis. Electronically Signed: Rickey Cadena MD at 11:51 EDT , EKG Initial EKG: Attestation: I personally reviewed and interpreted this EKG as follows: Interpretation: Sinus Rhythm (69) and No Acute Injury Pattern Prior EKG tracings: available for review Prior: Unchanged (04/24/2022) Discharge Plan Triage Chief Complaint: Weakness ED Provider: Ori Lim Dx/Rx/DC Orders Clinical Impression: Influenza B, Generalized weakness, Peripheral edema Instructions: ED Influenza (Adult) Prescriptions: New oseltamivir [oseltamivir] 75 MG capsule 75 mg PO BID Qty: 10 0RF hydrochlorothiazide 12.5 mg tablet 12.5 mg PO DAILY Qty: 14 0RF No Action atorvastatin 80 MG tablet 80 mg PO QHS tamsulosin 0.4 MG capsule 0.4 mg PO QHS aspirin 81 MG tablet,chewable 81 mg PO DAILY@0800 acetaminophen 325 MG tablet 650 mg PO Q6H PRN PRN (Reason: Non-cardiac pain (mod-severe)) 0RF zolpidem 10 mg tablet 10 mg PO QHS Hold Instructions: Resume on 05/06/22. Please discuss with your primary care physician prior to resuming this as at times can cause confusion and falls. levothyroxine 112 mcg tablet 112 mcg PO DAILY Label Comments: TAKE 1 TABLET BY MOUTH ONCE DAILY trazodone 50 mg Tablet 50 mg PO QHS 30 Days Qty: 30 0RF pantoprazole 20 mg Tablet,Delayed Release (Dr/Ec) 20 mg PO BID 30 Days Qty: 60 0RF ferrous sulfate [FeroSul] 325 mg (65 mg iron) Tablet 325 mg PO DAILY 30 Days Qty: 30 0RF lisinopril 10 mg Tablet 10 mg PO DAILY 30 Days Qty: 30 0RF Primary Care Provider: Ash Barclay Chi Referrals: Ash Barcaly Chi, MD [Primary Care Provider] - 3-5 Days Disposition Disposition: Home, Self Care
[2022-05-08] MEDS: Morphine 4 MG/ML Syringe IV (10:37)
[2022-05-08 10:38] VITALS: BP 136/62; PULSE 66; RESP 12; O2SAT 100
[2022-05-08 10:49] LABS: Absolute Lymphocyte Count 1.48 X10^3/uL (0.83-4.51); Absolute Neutrophil Count 8.6 X10^3/uL (2.0-7.7); Basophil# 0.07 X10^3/uL; Basophil% 0.6 % (0-1); Eosinophil# 0.08 X10^3/uL; Eosinophils% 0.7 % (0-5); Hematocrit 31.9 % (40-54); Hemoglobin 10.3 g/dL (13.0-16.5); Lymphocyte # 1.48 X10^3/ul (0.83-4.51); Lymphocyte % 12.6 % (19-41); Mean Corp Hgb Conc 32.3 g/dL (32-36); Mean Corpuscular Hgb 25.4 pg (27.0-32.0); Mean Corpuscular Volume 78.8 fL (80-94); Mean Platelet Vol. 10.3 fl (6.2-12.0); Monocyte# 1.44 X10^3/uL; Monocyte% 12.2 % (0-10); NRBC Flagged by Analyzer 0 % (0-5); Neutrophil # 8.63 X10^3/uL (2.7-7.7); Neutrophil % 73.3 % (47-70); Platelet Count 274 K/mm3 (150-450); RBC Distribution Width CV 18.2 % (11.6-14.6); RBC Distribution Width SD 51.3 fl (35.1-43.9); Red Blood Count 4.05 M/mm3 (4.6-6.2); White Blood Count 11.8 K/mm3 (4.4-11.0)
--- NOTE | 2022-05-08 11:00 | RAD_ITS ---
EXAM: XR LUMBOSACRAL SPINE, 2 OR 3 VIEWS CLINICAL INDICATION: Injury/Pain TECHNIQUE: Frontal and lateral views of the lumbar spine and sacrum. This report was created using [employer] report generation technology. COMPARISON: None. FINDINGS: VERTEBRAE: Marked multilevel vertebral body osteophytosis noted. Preserved vertebral body height. No fracture. No spondylolisthesis. Preservation of the normal lumbar lordosis. DISC SPACES: L3-4 disc space narrowing. RAD/Lumbar Spine 2 or 3 Views IMPRESSION: Prominent diffuse vertebral body osteophytosis. Electronically Signed: Rickey Cadena MD at 11:51 EDT ,
--- NOTE | 2022-05-08 11:00 | RAD_ITS ---
EXAM: XR CHEST, 2 VIEWS CLINICAL INDICATION: Weakness TECHNIQUE: Frontal and lateral views of the chest. This report was created using [employer] report generation technology. COMPARISON: None. FINDINGS: LUNGS AND PLEURAL SPACES: Masslike consolidation of the left upper lobe unchanged from prior exam. Improving aeration of the left lower lobe. No pneumothorax. No effusion. HEART: Normal heart size. MEDIASTINUM: No mediastinal or hilar mass. BONES/JOINTS: No acute abnormality. SOFT TISSUES: Normal. RAD/Chest PA and Lateral IMPRESSION: Stable masslike density involving the left upper lobe. Improving left lower lobe pneumonia/atelectasis Electronically Signed: Rickey Cadena MD at 11:49 EDT ,
[2022-05-08 11:03] LABS: International Normalized Ratio 1.3; Prothrombin Time (Protime)PT. 15.4 SECONDS (11.7-14.9)
[2022-05-08 11:06] LABS: Mucous, Urine 0 SEEN /hpf (<or=2+); Squamous Epithelial Cells - UA 0 SEEN /hpf (0-5)
[2022-05-08 11:07] LABS: Color, Urine Yellow (Yellow); Glucose, Dipstick Normal (Normal); Ketone-Dipstick 5 mg/dl (Negative); Leukocyte Esterase-Dipstick 25 /ul (Negative); Nitrite-Dipstick Negative (Negative); Occult Blood-Urine 250 /ul (Negative); Protein-Dipstick 30 mg/dl (Negative); Specific Gravity, Urine 1.025 (1.002-1.030); Urine Bilirubin Dipstick Negative (Negative); Urine Clarity Clear (Clear); Urine Urobilinogen Normal (Normal)
[2022-05-08 11:11] LABS: BNP,B-Type NATRIURETIC PEPTIDE 85.8 pg/mL (0-100)
[2022-05-08 11:12] LABS: ALB/GLOB Ratio 0.5 RATIO (0.9-2.4); AST(SGOT) 41 U/L (15-37); Alanine Aminotransfer ALT/SGPT 20 U/L (16-61); Albumin, Serum 2.2 g/dL (3.2-5.0); Alkaline Phosphatase 189 U/L (45-117); Anion Gap 6 (5-15); BUN 19 mg/dL (7-18); BUN/Creat Ratio 20.4 RATIO (10-20); Calcium,Total 8.9 mg/dL (8.5-10.1); Chloride 106 mmol/L (98-107); Creatinine, Serum 0.93 mg/dL (0.70-1.30); EST Glomerular Filtration Rate 82 mL/min (>60); Est Glom Filt Rate - Afr Amer 99 mL/min (>60); Estimated Creatinine Clearance 68.02 ml/min; Globulin 4.1 g/dL (2.2-4.2); Glucose 93 mg/dL (74-106); Potassium 4.2 mmol/L (3.5-5.1); Protein, Total 6.3 g/dL (6.4-8.2); Sodium Level 141 mmol/L (136-145); Troponin-I HS 14 pg/mL (3.0-78.0)
[2022-05-08 11:13] LABS: Bacteria 1+ /hpf (None Seen); Red Blood Cells-Urine 10-25 SEEN /hpf (0-5); White Blood Cells 10-25 SEEN /hpf (0-5)
[2022-05-08 11:15] LABS: Lactic Acid 1.3 mmol/L (0.4-1.9)
[2022-05-08 11:41] VITALS: BP 121/67; PULSE 67; RESP 17; O2SAT 100
--- NOTE | 2022-05-08 13:07 | ED.RN ---
Hospice will be transporting patient back to [place].
--- NOTE | 2022-05-08 13:22 | CM.ED ---
BRIAN Note MD requested that licensed clinical social worker speak to family of bed #8 as they wanted hospital bed for patient. BRIAN met with patient's son, Alfonso and patients DIL. Patient met with [facility] yesterday and wanted to continue with Physical Therapy so he did not sign up for hospice yesterday. Family indicated that patient now has the flu and wants to go hospice. They would like patient to get a hospital bed for [facility]. BRIAN was in the room when Chastity from Hospice called and spoke to the family. Chastity was advised that patient wants hospice. Chastity will order a hospital bed and bed side commode for patient at [facility]. Family will get something to eat but licensed clinical social worker will update them via phone. BRIAN updated MD that patient is being discharged back to [facility] and will sign up for hospice. BRIAN spoke to STEFANIA Yang and she inquired about transport for patient. Family does not wish to transport patient privately back to [facility]. BRIAN called Chastity at Hospice. Chastity said that she could get patient transported to [facility] but it would be a couple of hours. Chastity said that she will send Gladis, the liaison to meet with patient and sign papers. BRIAN advised that family is not present in the ED currently. Chastity will call this typewriter repairer when she has a time for the hospice transportation for patient. BRIAN called patient's son, Alfonso, and updated him that Hospice staff will come to the ED and get consent for hospice. Alfonso indicated understanding and agreement with hospice coming to the ED to sign patient up for hospice. No concerns or issues voiced. (except Alfonso said that patient's handwriting is difficult to read at times) BRIAN spoke with Gladis from [facility] and updated her that family not in room but patient is able to sign for himself, as he is his own person. Gladis will continue to update this typewriter repairer. Lisa FUENTES
[2022-05-08 13:26] LABS: Partial Thromboplast Time 35.7 Seconds (24.1-36.2)
[2022-05-08 13:54] VITALS: BP 121/60; PULSE 69
--- NOTE | 2022-05-08 14:40 | ED.RN ---
Hospice transport ETA approx [phone]
--- NOTE | 2022-05-08 15:05 | CM.ED ---
Alisa from hospice to meet with patient. Alisa met with patient and advised he signed the hospice paperwork. BRIAN received voice mail from Alisa at [facility]. Alisa stated that transport will be here at [facility] at 3pm. BRIAN updated patient. BRIAN called patient's son, Alfonso and updated him that transport will be at the hospital at 3pm. BRIAN updated credit historian. No further SW needs at this time. Plan: Hospice Lisa FUENTES
--- NOTE | 2022-05-08 15:11 | ED.RN ---
Report called to [facility].
== END 2022-05-08 15:13 | disposition home or self-care (01) ==
PROVIDERS: Emergency Provider Emergency Medicine; PCP Family Medicine Geriatric Medicine; Visit Provider Emergency Medicine
DX: J10.00 Influenza due to other identified influenza virus with unspecified type of pneumonia (principal); E11.22 Type 2 diabetes mellitus with diabetic chronic kidney disease; R53.1 Weakness; I12.9 Hypertensive chronic kidney disease with stage 1 through stage 4 chronic kidney disease, or unspecified chronic kidney disease; N18.2 Chronic kidney disease, stage 2 (mild); E78.5 Hyperlipidemia, unspecified; R60.9 Edema, unspecified; Z87.891 Personal history of nicotine dependence
CPT/HCPCS: 71046; 72100; 80053; 81001; 83605; 83880; 84484; 85025; 85610; 85730; 87086; 87428; 93005; 96374; 99285; A4216

== ENCOUNTER → 2022-05-11 | Outpatient (REF) | payer MEDICARE, SELFPAY | PROVIDERS: PCP Family Medicine Geriatric Medicine; Visit Provider Family Medicine Geriatric Medicine | DX: R19.7 Diarrhea, unspecified (principal) | CPT/HCPCS: 87493 ==